=== PATIENT | female | born 1970 | race Caucasian/White ===

== ENCOUNTER 2019-09-25 05:50 | Emergency (ER) | payer OTHER, SELFPAY ==
--- NOTE | ~2019-09-25 | US_ITS ---
EXAMINATION: US venous doppler [facility] DATE: 09/25/2019 07:21 INDICATION: Left lower limb swelling and redness TECHNIQUE: Wagner scale images without and with compression and Doppler images of the left lower extrem ity veins were obtained. COMPARISON: 10/15/2014. FINDINGS: The left common femoral vein, profunda femoral vein, femoral vein, popliteal vein, posterio r tibial veins, and greater saphenous vein are patent. The peroneal vein is not evaluated due to hodan ent body habitus. IMPRESSION: 1. Patent left lower extremity veins. No evidence of deep venous thrombosis. Peroneal vein not evalua jorge due to patient body habitus. Reviewed, dictated and finalized at location [facility]. ET DANCER IMPRESSION: 1. Patent left lower extremity veins. No evidence of deep venous thrombosis. Pe roneal vein not evaluated due to patient body habitus.
[2019-09-25 05:55] VITALS: BP 168/106; PULSE 96; RESP 20; TEMP 36.4; O2SAT 99
[2019-09-25 06:29] LABS: Glucose Point of Care 128 (65-105)
[2019-09-25 06:37] LABS: Add Urine Microscopic? YES; Appearance Urine Clear (Clear); Bilirubin Urine Negative (Negative); Blood Urine 1+ (Negative); Color Urine Yellow (Yellow); Glucose Urine UA Negative (Negative); Ketones Urine Negative (Negative); Leukocyte Esterase Ur Negative LEU/UL (Negative); Mucus Urine Rare /lpf; Nitrate Urine Negative (Negative); Protein Urine Negative (Negative); RBC Urine 0-2 /hpf (0-2); Specific Grav Ur 1.017 (1.001-1.035); Squamous Epithelial Cell Urine Moderate /hpf (Few); Urobilinogen Urine Negative mg/dL (<2.0); WBC Urine 0-3 /hpf
[2019-09-25 06:40] LABS: Basophils Percent Auto 0.4 % (0.2-1.2); Eosinophils Absolute Auto 0.2 K/mm3 (0-0.3); Eosinophils Percent Auto 3.1 % (0-4.4); Hematocrit 40.7 % (37.0-47.0); Hemoglobin 13.1 g/dL (12.0-15.0); Immature Granulocyte Absolute 0.04 K/mm3 (0.00-0.031); Immature Granulocyte Percent A 0.5 % (0-0.5); Lymphocytes Absolute Auto 1.68 K/mm3 (0.9-3.2); Lymphocytes Percent Auto 21.8 % (18.3-44.2); Mean Corpuscular HGB Conc 32.2 g/dl (32-36); Mean Corpuscular Hemoglobin 28.7 pg (26-34); Mean Corpuscular Volume 89.1 fl (80-100); Mean Platelet Volume 9.5 fl (7.4-10.4); Monocytes Absolute Auto 0.5 K/mm3 (0.1-0.6); Monocytes Percent Auto 6.2 % (2.6-8.5); Neutrophils Absolute Auto 5.2 K/mm3 (1.3-6.7); Platelet Count Result 245 k/mm3 (150-375); Red Blood Count 4.57 M/mm3 (4.2-5.4); Red Cell Distribution Width 13.4 % (11.5-14.5); White Blood Count 7.7 K/mm3 (4.5-10.0)
--- NOTE | 2019-09-25 06:46 | ED.LOWEXIN ---
HPI - Extremity Injury (Lower) General Chief Complaint: Extremity Injury, Lower Stated Complaint: lle rash Time Seen by Provider: 09/25/19 05:59 Source: patient Mode of arrival: ambulatory Limitations: no limitations History of Present Illness HPI Narrative: 48 yo morbidly obese female who presents for evaluation of rash to left lower leg. Patient states she has noticed burning rash to left lower leg for 3 days. She states she looked online and she was concerned about cellulitis. She reports she has chronically swollen bilateral feet and legs, but he swelling seems to be worse to left leg . She takes 2 tabs of HCTZ. She denies calf pain, fever, nausea, vomiting , chest pain or sob. She is also concerned that she has UTI. She reports increased urinary frequency and sweet smelling urine. She denies dysuria or abdominal pain. She denies history of Diabetes. complaint: other (rash to left leg) Related Data Allergies Allergy/AdvReac Type Severity Reaction Status Date / Time lisinopril Allergy Intermediate leg Verified 11/28/18 10:12 swelling morphine Allergy Unknown Unknown Verified 09/25/19 06:00 Review of Systems Review of Systems: All systems reviewed & are unremarkable except as noted in HPI and below Constitutional: Constitutional: Denies chills, Denies fever(s) and Denies weakness Cardiovascular: Cardiovascular: Denies chest pain and Denies rapid heart rate Respiratory: Respiratory: Denies cough and Denies dyspnea Gastrointestinal: Gastrointestinal: Denies abdominal pain Genitourinary: Genitourinary: Denies hematuria, Reports nocturia and Denies dysuria PMFSH Past Medical History Medical History (Updated 09/25/19 @ 08:39 by Claudette Mendoza MD) Hypertension Surgical History Surgical History (Updated 09/25/19 @ 06:54 by Claudette Mendoza MD) Hx of appendectomy Exam Narrative: Exam Narrative: GENERAL: Well-appearing, well-nourished, and in no acute distress. HEAD: Normocephalic, atraumatic EYES: PERRLA and EOMI, conjunctiva clear without discharge THROAT:Mucous membranes moist, NECK: Supple, without lymphadenopathy or mass RESPIRATORY: No respiratory distress, Airway patent, Respirations non-labored, Clear to auscultation without rales, rhonchi or wheeze HEART: Regular rate and rhythm. No murmur heard. Normal peripheral pulses. ABDOMEN: Soft, nontender, nondistended, normal active bowel sounds. No masses. No rebound or guarding, No organomegaly. EXTREMITIES: normal strength with full range of motion. SKIN: Warm, dry, normal color NEURO: Alert and oriented x3. CN 2-12 grossly intact. No focal deficits. PSYCH: Normal mood and affect. Skin: General skin exam: excoriation (left lower leg) Other: bilateral lower leg with stasis dermatitis, no increased warmth or redness Extrem: General: edema bilateral Course Course Emergency Course: Patient presented with concern of cellulitis to her left leg. I Discussed with this pain she has stasis dermatitis. She does not have cellulitis at this time. labs are normal and she has not increased warmth or pain. I discussed she will need to wrap and wear compressions and discussed diuretics with her PCP. Vital Signs Vital signs: Vital Signs Temperature 97.6 F 09/25/19 05:55 Pulse Rate 96 09/25/19 05:55 Respiratory Rate 20 09/25/19 05:55 Blood Pressure 168/106 H 09/25/19 05:55 Pulse Oximetry 99 09/25/19 05:55 Temperature 97.6 F 09/25/19 05:55 Pulse Rate 72 09/25/19 09:01 Respiratory Rate 18 09/25/19 09:01 Blood Pressure 131/94 H 09/25/19 09:01 Pulse Oximetry 98 09/25/19 09:01 MDM - Extremity Injury (Lower) Lab Data Attestation: I reviewed the patient's lab results. Result diagrams: 09/25/19 06:25 09/25/19 06:25 Labs: Lab Results 09/25/19 09/25/19 09/25/19 Range/Units 06:24 06:25 06:25 WBC 7.7 (4.5-10.0) K/mm3 RBC 4.57 (4.2-5.4) M/mm3 Hgb 1
[2019-09-25 06:55] LABS: Alanine Aminotransferase 24 U/L (4-35); Alkaline Phosphatase 108 U/L (38-126); Aspartate Amino Transferase 27 U/L (14-36); Bilirubin,Total 0.5 mg/dL (0.2-1.3); Blood Urea Nitrogen 16 mg/dL (7-17); Calcium 9.3 mg/dL (8.4-10.2); Carbon Dioxide 28 mmol/L (22-30); Chloride 93 mmol/L (98-107); Estimated CRCL calculation 107 ml/min; Estimated Glomerular Filt Rate > 60; Glucose 131 mg/dL (65-105); Potassium 3.8 mmol/L (3.4-5.0); Sodium 135 mmol/L (137-145)
[2019-09-25 09:01] VITALS: BP 131/94; PULSE 72; RESP 18; O2SAT 98
== END 2019-09-25 09:03 | disposition home or self-care (01) ==
PROVIDERS: Emergency Provider General Practice
DX: R60.0 Localized edema (principal); I87.2 Venous insufficiency (chronic) (peripheral); E66.01 Morbid (severe) obesity due to excess calories; Z68.41 Body mass index [BMI] 40.0-44.9, adult; I10 Essential (primary) hypertension
CPT/HCPCS: 36415; 80053; 81001; 82948; 85025; 93971; 99284

== ENCOUNTER 2020-04-17 10:17 | Outpatient (CLI) | payer OTHER, SELFPAY ==
[2020-04-17 11:01] LABS: NT Pro B Type Natriuretic Pept 66 PG/ML (5-100)
== END 2020-04-17 10:18 | disposition home or self-care (01) ==
LOC: ANHLAB 10:19
PROVIDERS: PCP Nurse Practitioner Family; Visit Provider Internal Medicine Cardiovascular Disease
DX: R06.00 Dyspnea, unspecified (principal); R60.0 Localized edema
CPT/HCPCS: 36415; 83880

== ENCOUNTER 2020-04-27 09:22 | Outpatient (CLI) | payer OTHER, SELFPAY ==
--- NOTE | ~2020-04-27 | US_ITS ---
EXAMINATION: US venous doppler [facility] EXAM DATE: 04/27/2020 10:02 INDICATION: Bilateral leg edema. TECHNIQUE: Multiple grayscale, color flow and Doppler images of the lower extremity deep venous syste ms bilaterally were obtained and reviewed. Comparison is made to prior examination from 09/25/2019. FINDINGS: Right side: The right common femoral, femoral and profunda veins demonstrate normal color flow, respi ratory variation, augmentation and compressibility. Compressibility, color flow confirmed within the right popliteal, posterior tibial, peroneal, and greater saphenous veins. Left side: The left common femoral, femoral and profunda veins demonstrate normal color flow, respira tory variation, augmentation and compressibility. Compressibility, color flow confirmed within the l eft popliteal, posterior tibial, peroneal, and greater saphenous veins. IMPRESSION: 1. No lower extremity deep venous thrombosis bilaterally. Reviewed, dictated and finalized at location [facility].
== END 2020-04-27 09:23 | disposition home or self-care (01) ==
PROVIDERS: PCP Nurse Practitioner Family; Visit Provider Internal Medicine Cardiovascular Disease
DX: R60.0 Localized edema (principal)
CPT/HCPCS: 93970

== ENCOUNTER 2020-04-29 12:28 | Emergency (ER) | payer OTHER, SELFPAY ==
[2020-04-29 12:38] VITALS: BP 120/74; PULSE 68; RESP 16; TEMP 37.1; O2SAT 97
--- NOTE | 2020-04-29 13:00 | ED.GENADULT ---
HPI - General Adult General Chief complaint: Skin/Abscess/Foreign Body Stated complaint: possible spider bite Time Seen by Provider: 04/29/20 13:00 Source: patient and RN notes reviewed Mode of arrival: ambulatory Limitations: no limitations History of Present Illness HPI narrative: 49-year-old female presents with complaints of lesions, tenderness, and drainage to LT lower leg for 1 day. Kassy says she has been having swelling to BLE for 5-6 months without cardiac history. No redness and warmth. No treatment. Denies radiation of tenderness, redness, or swelling. No exacerbating factors. Denies calf pain. Denies fever or chills. Denies nausea, vomiting, and abdominal pain. The patient reports she have not been diagnosed with COVID-19. The patient reports she is not waiting for the results of a COVID-19 lab test. The patient reports she do not have fever, chills, weakness, or fatigue. The patient reports she do not have a new or worsening cough or shortness of breath. Denies chest pain. The patient reports she do not have any rhinorrhea, congestion, sore throat, loss of taste, or diarrhea. Tolerating po intake well. Denies recent traveling. Denies concerns for COVID-19 or exposures been home with limited outdoor exposure except for essential household needs, work, and return home. At this time, patient is not suspected of having COVID-19. Some parts of this dictation were generated by voice recognition software and may contain typographical and/or grammatical inaccuracies. Related Data Home Medications Medication Instructions Recorded Confirmed carvedilol 04/29/20 ergocalciferol (vitamin D2) 04/29/20 furosemide 04/29/20 levothyroxine 04/29/20 levothyroxine 04/29/20 potassium chloride 04/29/20 Allergies Allergy/AdvReac Type Severity Reaction Status Date / Time lisinopril Allergy Intermediate leg Verified 11/28/18 10:12 swelling morphine Allergy Unknown Unknown Verified 09/25/19 06:00 Review of Systems Review of Systems: Narrative: CONSTITUTIONAL: Denies fever, chills, sweats. EYES: Denies visual changes, redness, discharge. ENT: Denies rhinorrhea, congestion, sore throat, otalgia. CARDIOVASCULAR: Denies chest pain, palpitations, edema. RESPIRATORY: Denies dyspnea, wheezing, cough. GASTROINTESTINAL: Denies abdominal pain, nausea, vomiting, diarrhea. GENITOURINARY: Denies dysuria, hematuria, abnormal discharge. SKIN: Complains of lesions, tenderness, and drainage to LT lower leg. MUSCULOSKELETAL: Denies acute back pain, joint pain, or myalgia. NEUROLOGIC: Denies numbness or focal weakness. PSYCHIATRIC: Denies anxiety or depression. All systems reviewed & are unremarkable except as noted in HPI and below. 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 Swelling of both lower extremities Surgical History Surgical History (Updated 04/29/20 @ 13:08 by ULISES Juan) History of ankle surgery Right, x5 History of dental surgery History of ear surgery Left, x4 Hx of appendectomy Family History Family History (Updated 04/29/20 @ 13:08 by ULISES Juan) Father Alive and well Mother Hypertension Social History Social History (Updated 04/29/20 @ 13:09 by ULISES Juan) Smoking status: Never smoker Tobacco type: cigarettes Second hand tobacco smoke exposure: Yes Alcohol intake: never Substance use: never Living arrangements: with family Occupation/Education: occupation Gender identity (if verbalized by the patient): Female Comments At time of signature, agree with nurse past medical, surgical, social, and family history. There is relevant patient's past medical history pertinent to the presenting complaint, no relevant family history pertinent to the presenting complaint. Exam Narrative: Exam Narrative:
== END 2020-04-29 13:20 | disposition home or self-care (01) ==
PROVIDERS: Emergency Provider Nurse Practitioner Family; PCP Nurse Practitioner Family
DX: L03.116 Cellulitis of left lower limb (principal); I10 Essential (primary) hypertension; E03.1 Congenital hypothyroidism without goiter
CPT/HCPCS: 99213; G0463

== ENCOUNTER 2020-06-20 10:17 | Emergency (ER) | payer OTHER, SELFPAY ==
[2020-06-20 10:38] VITALS: BP 146/97; PULSE 80; RESP 20; TEMP 36.6; O2SAT 96
[2020-06-20 10:58] LABS: Basophils Percent Auto 0.4 % (0.2-1.2); Eosinophils Absolute Auto 0.3 K/mm3 (0-0.3); Eosinophils Percent Auto 3.7 % (0-4.4); Hematocrit 42.5 % (37.0-47.0); Immature Granulocyte Absolute 0.03 K/mm3 (0.00-0.031); Immature Granulocyte Percent A 0.4 % (0-0.5); Lymphocytes Absolute Auto 1.41 K/mm3 (0.9-3.2); Lymphocytes Percent Auto 16.6 % (18.3-44.2); Mean Corpuscular HGB Conc 32.9 g/dl (32-36); Mean Corpuscular Hemoglobin 29.5 pg (26-34); Mean Corpuscular Volume 89.5 fl (80-100); Mean Platelet Volume 8.7 fl (7.4-10.4); Monocytes Absolute Auto 0.3 K/mm3 (0.1-0.6); Monocytes Percent Auto 3.9 % (2.6-8.5); Neutrophils Absolute Auto 6.4 K/mm3 (1.3-6.7); Platelet Count Result 298 k/mm3 (150-375); Red Blood Count 4.75 M/mm3 (4.2-5.4); White Blood Count 8.5 K/mm3 (4.5-10.0)
[2020-06-20 11:12] LABS: Alanine Aminotransferase 23 U/L (4-35); Alkaline Phosphatase 100 U/L (38-126); Anion Gap 9 mmol/L (8-16); Aspartate Amino Transferase 25 U/L (14-36); Bilirubin,Total 0.5 mg/dL (0.2-1.3); Blood Urea Nitrogen 10 mg/dL (7-17); Calcium 8.7 mg/dL (8.4-10.2); Carbon Dioxide 28 mmol/L (22-30); Chloride 101 mmol/L (98-107); Estimated CRCL calculation 106 ml/min; Estimated Glomerular Filt Rate > 60; Glucose 128 mg/dL (65-105); Lipase 56 U/L (23-300); Potassium 3.6 mmol/L (3.4-5.0); Sodium 138 mmol/L (137-145)
[2020-06-20 11:39] LABS: Add Urine Microscopic? YES; Appearance Urine Clear (Clear); Bilirubin Urine Negative (Negative); Blood Urine Negative (Negative); Color Urine Yellow (Yellow); Glucose Urine UA Negative (Negative); Ketones Urine Negative (Negative); Leukocyte Esterase Ur Negative LEU/UL (Negative); Mucus Urine Few /lpf; Nitrate Urine Negative (Negative); Protein Urine 2+ mg/dL (Negative); RBC Urine 0-2 /hpf (0-2); Specific Grav Ur 1.023 (1.001-1.035); Squamous Epithelial Cell Urine Many /hpf (Few); Urobilinogen Urine Negative mg/dL (<2.0); WBC Urine 0-3 /hpf
[2020-06-20 13:31] VITALS: BP 142/96; PULSE 67; RESP 14; O2SAT 98
--- NOTE | 2020-06-20 13:34 | ED.GENADULT ---
HPI - General Adult General Chief complaint: Nausea/Vomiting/Diarrhea Stated complaint: vomiting/diarrhea Time Seen by Provider: 06/20/20 11:24 Source: patient Mode of arrival: ambulatory Limitations: no limitations History of Present Illness HPI narrative: Patient presents with chief complaint of vomiting twice, once last night and this morning. Patient states that Friday night while working she had a few episodes of nausea and vomiting so she was sent home. Patient states that she felt greatly improved so last night she decided to have [employer] cheeseburger and fries which resulted in vomiting. Patient denies any abdominal pain, fever, chills, diarrhea or present vomiting. 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 Patient denies any symptoms at this time but intermittent mild nausea.. Related Data Home Medications Medication Instructions Recorded Confirmed carvedilol 04/29/20 ergocalciferol (vitamin D2) 04/29/20 furosemide 04/29/20 levothyroxine 04/29/20 levothyroxine 04/29/20 potassium chloride 04/29/20 Allergies Allergy/AdvReac Type Severity Reaction Status Date / Time lisinopril Allergy Intermediate leg Verified 06/20/20 11:24 swelling morphine Allergy Unknown Unknown Verified 06/20/20 11:24 Review of Systems Review of Systems: Narrative: CONSTITUTIONAL: Denies fever, chills, or sweats. EYES: Denies visual changes, redness, or discharge. ENT: Denies rhinorrhea, congestion, sore throat, or otalgia. CARDIOVASCULAR: Denies chest pain, palpitations, or edema. RESPIRATORY: Denies cough or dyspnea. GASTROINTESTINAL: Reports intermittent nausea and vomiting denies abdominal pain or diarrhea. GENITOURINARY: Denies dysuria or hematuria. SKIN: Denies rash or itching. MUSCULOSKELETAL: Denies back pain, joint pain, or myalgia. NEUROLOGIC: Denies headache, numbness, dizziness, or weakness. PSYCHIATRIC: Denies anxiety or depression. 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 Swelling of both lower extremities Surgical History Surgical History (Updated 04/29/20 @ 13:08 by ULISES Juan) History of ankle surgery Right, x5 History of dental surgery History of ear surgery Left, x4 Hx of appendectomy Family History Family History (Updated 04/29/20 @ 13:08 by ULISES Juan) Father Alive and well Mother Hypertension Social History Social History (Updated 04/29/20 @ 13:09 by ULISES Juan) Smoking status: Never smoker Tobacco type: cigarettes Second hand tobacco smoke exposure: Yes Alcohol intake: never Substance use: never Gender identity (if verbalized by the patient): Female Exam Narrative: Exam Narrative: GENERAL: Well-appearing, well-nourished, and in no acute distress. HEAD: Normocephalic, atraumatic. EYES: PERRLA and EOMI. NECK: Supple. No adenopathy or masses. CHEST: Clear to auscultation. No respiratory distress. No wheezes rales or rhonchi HEART: Regular rate and rhythm. No murmur heard. Normal peripheral pulses. ABDOMEN: Soft, nontender, nondistended, normal active bowel sounds. EXTREMITIES: Normal range of motion. No edema. SKIN: Warm, dry, no rash. NEURO: No focal deficits. Alert and oriented x3. PSYCH: Normal mood and affect. Course Vital Signs Vital signs: Vital Signs Temperature 97.8 F 06/20/20 10:38 Pulse Rate 80 06/20/20 10:38 Respiratory Rate 20 06/20/20 10:38 Blood Pressure 146/97 H 06/20/20 10:38 Pulse Oximetry 96 06/20/20 10:38 Temperature 97.8 F 06/20/20 10:38 Pulse Rate 67 06/20/20 13:31 Respiratory Rate 14 06/20/20 13:31 Blood Pressure 142/96 H 06/20/20 13:31 Pulse Oximetry 98 06/20/20 13:31 Medical Decision Making MDM Narrative Medical decision making narrative: Patient's lab work is within normal limits. Patient denies an
[2020-06-20 13:48] VITALS: BP 142/96; PULSE 69; RESP 15; O2SAT 99
== END 2020-06-20 13:49 | disposition home or self-care (01) ==
PROVIDERS: Emergency Provider Emergency Medicine; PCP Nurse Practitioner Family
DX: K52.9 Noninfective gastroenteritis and colitis, unspecified (principal); I10 Essential (primary) hypertension; E03.9 Hypothyroidism, unspecified
CPT/HCPCS: 36415; 80053; 81001; 83690; 85025; 99283

== ENCOUNTER 2020-07-08 08:51 | Emergency (ER) | payer OTHER, SELFPAY ==
[2020-07-08 09:07] VITALS: BP 185/113; PULSE 98; RESP 18; TEMP 36.1; O2SAT 100
[2020-07-08 09:52] VITALS: BP 157/89; PULSE 73
[2020-07-08 09:53] VITALS: BP 155/98; BP 167/109; PULSE 80; PULSE 88
[2020-07-08 10:16] LABS: Basophils Percent Auto 0.5 % (0.2-1.2); Eosinophils Absolute Auto 0.3 K/mm3 (0-0.3); Eosinophils Percent Auto 4.4 % (0-4.4); Hematocrit 41.6 % (37.0-47.0); Hemoglobin 13.8 g/dL (12.0-15.0); Immature Granulocyte Absolute 0.02 K/mm3 (0.00-0.031); Immature Granulocyte Percent A 0.3 % (0-0.5); Lymphocytes Absolute Auto 1.46 K/mm3 (0.9-3.2); Mean Corpuscular HGB Conc 33.2 g/dl (32-36); Mean Corpuscular Hemoglobin 29.4 pg (26-34); Mean Corpuscular Volume 88.7 fl (80-100); Mean Platelet Volume 9.3 fl (7.4-10.4); Monocytes Absolute Auto 0.3 K/mm3 (0.1-0.6); Monocytes Percent Auto 5.3 % (2.6-8.5); Neutrophils Absolute Auto 4.2 K/mm3 (1.3-6.7); Neutrophils Percent Auto 66.5 % (45.5-73.1); Platelet Count Result 241 k/mm3 (150-375); Red Blood Count 4.69 M/mm3 (4.2-5.4); Red Cell Distribution Width 12.9 % (11.5-14.5); White Blood Count 6.4 K/mm3 (4.5-10.0)
[2020-07-08 10:22] LABS: Add Urine Microscopic? YES; Appearance Urine Clear (Clear); Bacteria Urine Trace /hpf; Bilirubin Urine Negative (Negative); Blood Urine Negative (Negative); Color Urine Yellow (Yellow); Glucose Urine UA Negative (Negative); Ketones Urine Negative (Negative); Leukocyte Esterase Ur Negative LEU/UL (Negative); Mucus Urine Rare /lpf; Nitrate Urine Negative (Negative); Protein Urine 1+ mg/dL (Negative); RBC Urine 0-2 /hpf (0-2); Specific Grav Ur 1.018 (1.001-1.035); Squamous Epithelial Cell Urine Many /hpf (Few); Urobilinogen Urine Negative mg/dL (<2.0); WBC Urine 0-3 /hpf
[2020-07-08 10:29] LABS: Alanine Aminotransferase 19 U/L (4-35); Albumin Level 3.8 g/dL (3.5-5.1); Alkaline Phosphatase 97 U/L (38-126); Anion Gap 5 mmol/L (8-16); Aspartate Amino Transferase 20 U/L (14-36); Bilirubin,Total 0.4 mg/dL (0.2-1.3); Blood Urea Nitrogen 12 mg/dL (7-17); Calcium 8.8 mg/dL (8.4-10.2); Carbon Dioxide 29 mmol/L (22-30); Chloride 102 mmol/L (98-107); Estimated CRCL calculation 103 ml/min; Estimated Glomerular Filt Rate > 60; Glucose 106 mg/dL (65-105); Lipase 74 U/L (23-300); Potassium 4.3 mmol/L (3.4-5.0); Sodium 136 mmol/L (137-145)
--- NOTE | 2020-07-08 10:40 | ED.NAVMDI ---
HPI - Nausea/Vomiting/Diarrhea General Chief complaint: Nausea/Vomiting/Diarrhea Stated complaint: vomiting, needs work note Time Seen by Provider: 07/08/20 09:44 Source: patient Mode of arrival: ambulatory Limitations: no limitations History of Present Illness HPI Narrative: This patient is a 49 year old female who presents for evaluation of diarrhea. She states she had an episode of diarrhea this morning. She denies any blood in her stool. She states she had to leave work so she needs a work note. She had lower abdominal pain before her episode of diarrhea, but she reports her pain has resolved now . She was evaluated over 2 weeks ago for vomiting and diarrhea. She continues to have nausea but she denies any vomiting since her last ER visit. She also reports her diarrhea resolved until today. She denies fever, chills, cough, or sob. She spoke with her PCP yesterday and it was recommended that she eat a BRAT diet. She states they will refer her to GI next week. Related Data Home Medications Medication Instructions Recorded Confirmed carvedilol 04/29/20 levothyroxine 04/29/20 levothyroxine 04/29/20 Allergies Allergy/AdvReac Type Severity Reaction Status Date / Time lisinopril Allergy Intermediate leg Verified 07/08/20 09:10 swelling morphine Allergy Unknown Unknown Verified 07/08/20 09:10 Review of Systems Review of Systems: All systems reviewed & are unremarkable except as noted in HPI and below Constitutional: Constitutional: Denies chills and Denies fever(s) Cardiovascular: Cardiovascular: Denies chest pain Respiratory: Respiratory: Denies cough and Denies dyspnea Gastrointestinal: Gastrointestinal: Reports abdominal pain, Reports diarrhea, Reports nausea and Denies vomiting Genitourinary: Genitourinary: Denies hematuria, Denies dysuria and Denies flank pain Neurologic: Denies dizziness and Denies syncope [facility] Past Medical History Medical History (Updated 07/08/20 @ 10:49 by Claudette Mendoza MD) Hypertension 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 Swelling of both lower extremities Surgical History Surgical History (Updated 04/29/20 @ 13:08 by ULISES Juan) History of ankle surgery Right, x5 History of dental surgery History of ear surgery Left, x4 Hx of appendectomy Family History Family History (Updated 04/29/20 @ 13:08 by ULISES Juan) Father Alive and well Mother Hypertension Social History Social History (Updated 04/29/20 @ 13:09 by ULISES Juan) Smoking status: Never smoker Tobacco type: cigarettes Second hand tobacco smoke exposure: Yes Alcohol intake: never Substance use: never Gender identity (if verbalized by the patient): Female Exam Const: General: no acute distress and alert Orientation/consciousness: patient oriented x3 HENMT: Head: normocephalic and atraumatic Face and sinus: face symmetric Mouth: Yes Normal oral and palatal mucosa present, Yes lip normal, Yes oropharynx normal and Yes moist mucous membranes Throat: posterior oropharynx normal, tonsils normal and uvula midline Eyes: EOM: EOMs intact bilaterally Chest: Chest palpation & inspection: normal inspection of the chest Resp: Effort & Inspection: normal respiratory effort and no retractions Auscultation: clear to auscultation bilaterally Cardio: Rate: regular rate Rhythm: regular rhythm Heart sounds: no murmurs GI: GI Palp: Yes Soft to palpation, No Tenderness to palpation present (GI), No Guarding due to palpation present (GI) and No Rigid due to palpation Auscultation: normal bowel sounds Skin: General skin exam: normal color Rashes: no rashes Neuro: General: patient oriented x3 and moves all extremities Psych: Mental Status: mental status grossly normal Affect: normal affect Course Reevaluation(s) Reevaluation #1: Patient has no complaints. Her labs are unremarkable. She denies any symptoms o
[2020-07-08 11:06] VITALS: BP 170/107; PULSE 81; RESP 18; O2SAT 99
== END 2020-07-08 11:07 | disposition home or self-care (01) ==
PROVIDERS: Emergency Provider General Practice; PCP Nurse Practitioner Family
DX: R19.7 Diarrhea, unspecified (principal); I10 Essential (primary) hypertension; E03.1 Congenital hypothyroidism without goiter
CPT/HCPCS: 36415; 80053; 81001; 81025; 83690; 85025; 99283

== ENCOUNTER 2020-09-28 14:37 | Outpatient (RCR) | payer OTHER, SELFPAY ==
[2020-09-28 15:06] VITALS: BMI 45.7
== END 2020-12-18 15:15 | disposition home or self-care (01) ==
LOC: ANHDMC 14:37
PROVIDERS: PCP Nurse Practitioner Family
DX: E66.01 Morbid (severe) obesity due to excess calories (principal); R73.03 Prediabetes; Z71.3 Dietary counseling and surveillance
CPT/HCPCS: 97802

== ENCOUNTER 2020-11-14 14:05 | Emergency (ER) | payer OTHER, SELFPAY ==
[2020-11-14] VITALS (13 sets, daily range): BP systolic 112–184; BP diastolic 78–116; PULSE 75–81; RESP 18–19; TEMP 36.7; O2SAT 90–100
--- NOTE | ~2020-11-14 | CT_ITS ---
EXAMINATION: CT abdomen pelvis w con DATE: 11/14/2020 17:56 INDICATION: Upper abdominal pain and nausea TECHNIQUE: Computed tomography (CT) of the abdomen and pelvis was performed with 100 cc Omnipaque 350 intravenous contrast. Automated exposure control and iterative reconstruction technique were employe d. Exam dose: 1402.75 mGy-cm total exam DLP. COMPARISON: 04/29/2018 CT abdomen pelvis FINDINGS: No infiltrate or consolidation is noted in the included lower lung zones. Heart size is within normal range. Coronary artery calcification. No pericardial or pleural effusion. Mild diffuse hepatic steatosis. No hepatic, splenic, pancreatic or adrenal space-occupying mass lesion is evident. There is extreme a trophy or possibly congenital extremely small left kidney. No right renal mass lesion or right ureter al calculus or hydroureteronephrosis. The urinary bladder, uterus and adnexal areas are unremarkable. No bowel obstruction, bowel wall thickening, pneumatosis or intraperitoneal free air. There is a medi ally directed medially midline cecum, consistent with retained cecal mesentery. There is some fluid l evels of the colon, abnormal unless there have been recent enemas. Otherwise this may indicate diarrh ea. Normal caliber of the abdominal aorta. The left renal artery is diffusely severely narrowed/atretic. No abdominal aortic aneurysm. Distal abdominal aortic and bilateral iliac shotty nonenlarged lymph nodes. Up to 12.5 x 15.7 mm proximal right external iliac lymph node. Otherwise no intraperitoneal or retrop eritoneal or pelvic mass lesion or lymphadenopathy is noted. Small fat-containing umbilical hernia. Severe left hip osteoarthritic arthritis prominent degenerative cyst of the left acetabulum and left femoral head, severe joint space narrowing. 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 Reviewed, dictated and finalized at location [facility]. 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
[2020-11-14 14:37] LABS: Basophils Absolute Auto 0.1 K/mm3 (0.0-0.1); Basophils Percent Auto 0.6 % (0.2-1.2); Eosinophils Absolute Auto 0.9 K/mm3 (0-0.3); Eosinophils Percent Auto 11.3 % (0-4.4); Hematocrit 41.7 % (37.0-47.0); Hemoglobin 13.9 g/dL (12.0-15.0); Immature Granulocyte Absolute 0.02 K/mm3 (0.00-0.031); Immature Granulocyte Percent A 0.2 % (0-0.5); Lymphocytes Absolute Auto 1.66 K/mm3 (0.9-3.2); Lymphocytes Percent Auto 20.2 % (18.3-44.2); Mean Corpuscular HGB Conc 33.3 g/dl (32-36); Mean Corpuscular Volume 90.1 fl (80-100); Mean Platelet Volume 9.2 fl (7.4-10.4); Monocytes Absolute Auto 0.3 K/mm3 (0.1-0.6); Monocytes Percent Auto 3.9 % (2.6-8.5); Neutrophils Absolute Auto 5.2 K/mm3 (1.3-6.7); Neutrophils Percent Auto 63.8 % (45.5-73.1); Platelet Count Result 269 k/mm3 (150-375); Red Blood Count 4.63 M/mm3 (4.2-5.4); Red Cell Distribution Width 12.7 % (11.5-14.5); White Blood Count 8.2 K/mm3 (4.5-10.0)
[2020-11-14 14:47] LABS: Alanine Aminotransferase 30 U/L (4-35); Albumin Level 4.1 g/dL (3.5-5.1); Alkaline Phosphatase 117 U/L (38-126); Anion Gap 5 mmol/L (8-16); Aspartate Amino Transferase 27 U/L (14-36); Bilirubin,Total 0.5 mg/dL (0.2-1.3); Blood Urea Nitrogen 14 mg/dL (7-17); Calcium 9.2 mg/dL (8.4-10.2); Carbon Dioxide 30 mmol/L (22-30); Chloride 102 mmol/L (98-107); Estimated CRCL calculation 93 ml/min; Estimated Glomerular Filt Rate > 60; Glucose 97 mg/dL (65-105); Lipase 70 U/L (23-300); Potassium 4.4 mmol/L (3.4-5.0); Sodium 137 mmol/L (137-145)
[2020-11-14 14:54] LABS: Add Urine Microscopic? NO; Appearance Urine Clear (Clear); Bilirubin Urine Negative (Negative); Blood Urine Negative (Negative); Color Urine Straw (Yellow); Glucose Urine UA Negative (Negative); Ketones Urine Negative (Negative); Leukocyte Esterase Ur Negative LEU/UL (Negative); Nitrate Urine Negative (Negative); Protein Urine Negative (Negative); Specific Grav Ur 1.009 (1.001-1.035); Urobilinogen Urine Negative mg/dL (<2.0)
[2020-11-14] MEDS: FAMOTIDINE 20 MG/2 ML VIAL IV PUSH (17:24)
[2020-11-14] MEDS: SODIUM CHLORIDE 0.9% IV 500 ML 999 ML IV CONT (17:25)
--- NOTE | 2020-11-14 17:25 | ED.ABDPAIN ---
HPI - Abdominal Pain General Chief Complaint: Abdominal Pain Stated Complaint: and pain. n/v/d Time Seen by Provider: 11/14/20 16:47 Source: patient Mode of arrival: ambulatory Limitations: no limitations History of Present Illness HPI narrative: This is a 50 year old female that presents to the ER for upper abdominal pain and nausea since this morning. Associated with diarrhea. Denies fever, hematochezia or recent antibiotic use. Related Data Home Medications Medication Instructions Recorded Confirmed carvedilol BID 04/29/20 levothyroxine 350 DAILY 04/29/20 levothyroxine 350 DAILY 04/29/20 dulaglutide [Trulicity] mg SUBCUT 11/14/20 pantoprazole PO DAILY 11/14/20 Allergies Allergy/AdvReac Type Severity Reaction Status Date / Time lisinopril Allergy Intermediate leg Verified 07/08/20 09:10 swelling morphine AdvReac Mild Nausea and Verified 11/14/20 16:54 Vomiting Review of Systems Review of Systems: Narrative: CONSTITUTIONAL: Denies fever GASTROINTESTINAL: Reports abdominal pain, nausea, and diarrhea. 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 Swelling of both lower extremities Surgical History Surgical History (Updated 04/29/20 @ 13:08 by ULISES Juan) History of ankle surgery Right, x5 History of dental surgery History of ear surgery Left, x4 Hx of appendectomy Family History Family History (Updated 04/29/20 @ 13:08 by ULISES Juan) Father Alive and well Mother Hypertension Social History Social History (Updated 04/29/20 @ 13:09 by ULISES Juan) Smoking status: Never smoker Tobacco type: cigarettes Second hand tobacco smoke exposure: Yes Alcohol intake: never Substance use: never Gender identity (if verbalized by the patient): Female Spiritual care concerns: No Exam Narrative: Exam Narrative: GENERAL: Well-appearing, obese, and in no acute distress. HEAD: Normocephalic, atraumatic. EYES: EOMI. CHEST: Clear to auscultation. No respiratory distress. No wheezes rales or rhonchi HEART: Regular rate and rhythm. No murmur heard. Normal peripheral pulses. ABDOMEN: Soft, nondistended, normal active bowel sounds. Tender to palpation in the upper abdomen, without guarding EXTREMITIES: Normal range of motion. No edema. SKIN: Warm, dry, no rash. NEURO: No focal deficits. Alert and oriented x3. PSYCH: Normal mood and affect Course Vital Signs Vital signs: Vital Signs Temperature 98.0 F 11/14/20 14:19 Pulse Rate 81 11/14/20 14:19 Respiratory Rate 18 11/14/20 14:19 Blood Pressure 177/113 H 11/14/20 14:19 Pulse Oximetry 99 11/14/20 14:19 Temperature 98.0 F 11/14/20 14:19 Pulse Rate 75 11/14/20 20:01 Respiratory Rate 19 11/14/20 20:01 Blood Pressure 135/98 H 11/14/20 20:16 Pulse Oximetry 99 11/14/20 20:16 MDM - Abdominal Pain MDM Narrative Medical decision making narrative: Patient presents to the emergency department for upper abdominal pain, nausea, vomiting and diarrhea. She is afebrile and nontoxic-appearing. CBC is without leukocytosis. Metabolic panel and lipase without concerning findings. UA is without evidence of infection. Bedside test is negative. CT scan of the abdomen and pelvis without acute findings. Patient reports improvement with antiemetics and antacids. She is stable and felt appropriate for further outpatient evaluation. She was given warnings to return to the ER Lab Data Attestation: I reviewed the patient's lab results. Result diagrams: 11/14/20 14:26 11/14/20 14:26 Labs: Lab Results 11/14/20 11/14/20 11/14/20 Range/Units 14:26 14:26 14:39 WBC 8.2 (4.5-10.0) K/mm3 RBC 4.63 (4.2-5.4
[2020-11-14] MEDS: ONDANSETRON INJ 4 MG/2 ML VIAL IV PUSH (18:07)
[2020-11-14] MEDS: PANTOPRAZOLE SODIUM IV 40 MG VIAL IV PUSH (20:01)
[2020-11-14] MEDS: diphenhydrAMINE HCl INJ 50 MG/ML VIAL 25 MG IV PUSH (20:20)
[2020-11-14] MEDS: METOCLOPRAMIDE HCL INJ 10 MG/2 ML VIAL IV PUSH (20:22)
== END 2020-11-14 21:05 | disposition home or self-care (01) ==
PROVIDERS: Emergency Provider Emergency Medicine; PCP Nurse Practitioner Family
DX: K21.9 Gastro-esophageal reflux disease without esophagitis (principal); K76.0 Fatty (change of) liver, not elsewhere classified; I10 Essential (primary) hypertension; E03.9 Hypothyroidism, unspecified
CPT/HCPCS: 36415; 74177; 80053; 81003; 81025; 83690; 85025; 96361; 96365; 96375; 99284; C9113; J0131; J1200; J2405; J2765; J7040; Q9967

== ENCOUNTER 2021-01-26 14:19 | Emergency (ER) | payer OTHER, SELFPAY ==
[2021-01-26 14:29] VITALS: BP 191/98; PULSE 72; RESP 16; TEMP 36.6; O2SAT 98
--- NOTE | 2021-01-26 14:45 | ED.GENADULT ---
HPI - General Adult General Chief complaint: Ear Stated complaint: ear pain Time Seen by Provider: 01/26/21 14:32 Source: patient and RN notes reviewed Mode of arrival: ambulatory Limitations: no limitations History of Present Illness HPI narrative: Patient presents today with a 2-day history of left ear pain, primarily in the external ear. Denies decreased hearing. States she has been taking ibuprofen without relief. She has also been using leftover neomycin eardrops without relief. She currently rates her pain 10/10. Patient has had a hole in her eardrum since she was 7 and had 4 tubes placed in that ear in that same year. MD complaint: Left ear pain Related Data Home Medications Medication Instructions Recorded Confirmed carvedilol BID 04/29/20 levothyroxine 350 DAILY 04/29/20 levothyroxine 350 DAILY 04/29/20 Allergies Allergy/AdvReac Type Severity Reaction Status Date / Time lisinopril Allergy Intermediate leg Verified 01/26/21 14:31 swelling morphine AdvReac Mild Nausea and Verified 01/26/21 14:31 Vomiting Review of Systems Review of Systems: Narrative: CONSTITUTIONAL: Denies body aches, fever, chills, or sweats. EYES: Denies visual changes, redness, or discharge. ENT: Denies rhinorrhea, congestion, sore throat. + Left ear pain CARDIOVASCULAR: Denies chest pain, palpitations, or edema. RESPIRATORY: Denies cough or dyspnea. GASTROINTESTINAL: Denies abdominal pain, nausea, vomiting, or diarrhea. GENITOURINARY: Denies dysuria or hematuria. SKIN: Denies rash, itching, or wounds. MUSCULOSKELETAL: Denies back pain, joint pain, or myalgia. NEUROLOGIC: Denies headache, numbness, tingling, or weakness. PSYCH: Denies depression or anxiety. 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 Swelling of both lower extremities Surgical History Surgical History (Updated 04/29/20 @ 13:08 by ULISES Juan) History of ankle surgery Right, x5 History of dental surgery History of ear surgery Left, x4 Hx of appendectomy Family History Family History (Updated 04/29/20 @ 13:08 by ULISES Juan) Father Alive and well Mother Hypertension Social History Social History (Updated 04/29/20 @ 13:09 by ULISES Juan) Smoking status: Never smoker Tobacco type: cigarettes Second hand tobacco smoke exposure: Yes Alcohol intake: never Substance use: never Gender identity (if verbalized by the patient): Female Spiritual care concerns: No Comments At time of signature, I have reviewed and agree with nursing past medical, surgical, social and family history unless otherwise noted. Please see nursing chart for further information. There is no relevant family history pertinent to the presenting complaint Exam Narrative: Exam Narrative: GENERAL: Well-appearing, well-nourished, and in no acute distress. HEAD: Normocephalic, atraumatic. EYES: EOMI. No redness or drainage. Conjunctivae normal. ENT: Mucous membranes pink and moist. Nares clear. No rhinorrhea. Right TM normal. Left TM erythematous with obvious defect. NECK: Normal AROM. Supple. Left postauricular lymphadenopathy CHEST: No respiratory distress. EXTREMITIES: Normal range of motion. No edema. SKIN: Warm, dry, no rash. Capillary refill normal. Normal skin turgor. NEURO: No focal deficits. Alert and oriented x3. Gait steady. PSYCH: Normal affect. No signs of depression or anxiety. Course Vital Signs Vital signs: Vital Signs Temperature 97.8 F 01/26/21 14:29 Pulse Rate 72 01/26/21 14:29 Respiratory Rate 16 01/26/21 14:29 Blood Pressure 191/98 H 01/26/21 14:29 Pulse Oximetry 98 01/26/21 14:29 Temperature 97.8 F 01/26/21 14:29 Pulse Rate 72 01/26/21 14:29 Respiratory Rate 16 01/26/21 14:29 Blood Pressure 191/98 H 01/26/21 14:29 Pulse Ox
== END 2021-01-26 14:56 | disposition home or self-care (01) ==
PROVIDERS: Emergency Provider Nurse Practitioner; PCP Nurse Practitioner Family
DX: H66.92 Otitis media, unspecified, left ear (principal); I10 Essential (primary) hypertension; E03.1 Congenital hypothyroidism without goiter
CPT/HCPCS: 99213; G0463

== ENCOUNTER 2021-02-08 09:21 | Outpatient (RCR) | payer OTHER, SELFPAY ==
[2021-02-08 09:38] VITALS: BMI 44.9
[2021-02-08 09:39] VITALS: BMI 44.9
== END 2021-04-30 14:29 | disposition home or self-care (01) ==
LOC: ANHDMC 09:21
PROVIDERS: PCP Nurse Practitioner Family
DX: E66.01 Morbid (severe) obesity due to excess calories (principal); R73.03 Prediabetes; Z71.3 Dietary counseling and surveillance
CPT/HCPCS: 97803

== ENCOUNTER 2021-05-31 15:02 | Outpatient (RCR) | payer OTHER, SELFPAY ==
[2021-05-31 15:10] VITALS: BMI 103.7
== END 2021-08-20 13:54 | disposition home or self-care (01) ==
LOC: ANHDMC 15:02
PROVIDERS: PCP Nurse Practitioner Family
DX: E66.01 Morbid (severe) obesity due to excess calories (principal); R73.03 Prediabetes; Z71.3 Dietary counseling and surveillance
CPT/HCPCS: 97803

== ENCOUNTER 2022-07-12 05:08 | Emergency (ER) | payer SELFPAY ==
[2022-07-12 05:09] VITALS: BP 228/135; PULSE 96; RESP 24; TEMP 36.3; O2SAT 100
--- NOTE | 2022-07-12 05:28 | ECG_ITS ---
Measurements Intervals [place] Rate: 84 P: 55 RI: 187 QRS: -14 QRSD: 106 T: 67 QT: 379 QTc: 449 Interpretive Statements SINUS RHYTHM WITH OCCASIONAL VENTRICULAR PREMATURE COMPLEXES INCOMPLETE RIGHT BUNDLE BRANCH BLOCK [90+ ms QRS DURATION, TERMINAL R IN V1/V2, 40+ ms S IN I/aVL/V4/V5/V6] NO PREVIOUS ECG AVAILABLE FOR COMPARISON Electronically Signed On 07-12-2022 17:12:18 SERVICE DISPATCHER by Aung Phelan M.D.
--- NOTE | 2022-07-12 05:53 | ED.GENADULT ---
HPI - General Adult General Chief complaint: Unspecified Stated complaint: toothache Time Seen by Provider: 07/12/22 05:53 History of Present Illness HPI narrative: this is a 51-year-old female presenting ED with a chief complaint of ear pain. Patient says that she started have sudden onset of ear pain 2 days ago. She saw her primary care physician who gave her amoxicillin and Tylenol. However this did not help with the pain. Patient denies fever, chills, nausea, vomiting, diarrhea, chest pain or difficulty breathing. Patient was in so much pain last night she did not sleep. She has not taken her blood pressure medications this morning. Related Data Home Medications Medication Instructions Recorded Confirmed carvedilol 25 mg tablet BID 04/29/20 levothyroxine 300 mcg tablet 350 DAILY 04/29/20 levothyroxine 50 mcg tablet 350 DAILY 04/29/20 Allergies Allergy/AdvReac Type Severity Reaction Status Date / Time lisinopril Allergy Intermediate leg Verified 01/26/21 14:31 swelling morphine AdvReac Mild Nausea and Verified 01/26/21 14:31 Vomiting Review of Systems Review of Systems: CONSTITUTIONAL: Denies night sweats. EYES: No eye pain ENT: Denies rhinorrhea CARDIOVASCULAR: Denies palpitations RESPIRATORY: Denies hemoptysis GASTROINTESTINAL: Denies hematemesis GENITOURINARY: Denies hematuria. SKIN: Denies rash MUSCULOSKELETAL: Denies myalgia. NEUROLOGIC: Denies weakness. 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 Swelling of both lower extremities Surgical History Surgical History History of ankle surgery Right, x5 History of dental surgery History of ear surgery Left, x4 Hx of appendectomy Family History Family History Father Alive and well Mother Hypertension Social History Social History Smoking status: Never smoker Tobacco type: cigarettes Second hand tobacco smoke exposure: Yes Alcohol intake: never Substance use: never Gender identity (if verbalized by the patient): Female Spiritual care concerns: No Exam Narrative: APPEARANCE: patient appears uncomfortable Head: patient has an erythematous and bulging tympanic membrane on the left. Right is normal. Oral exam revealed poor dentition but no obvious signs of infection or abscess. EYES: EOMI, NOSE: Atraumatic NECK: Trachea midline RESPIRATORY: No increased rate of breathing , clear to auscultation bilaterally CARDIOVASCULAR: RRR, chronic edema of the lower extremities the patient states is at her baseline. ABDOMINAL: Obese, nontender no guarding or rebound MUSCULOSKELETAl: No obvious deformities NEURO: Alert. Moving 4/4 extremities SKIN:: Warm, dry. Normal color PSYCHIATRIC: Normal affect Course Vital Signs Vital signs: Vital Signs Temperature 97.3 F L 07/12/22 05:09 Pulse Rate 96 07/12/22 05:09 Respiratory Rate 24 H 07/12/22 05:09 Blood Pressure 228/135 H 07/12/22 05:09 Pulse Oximetry 100 07/12/22 05:09 Oxygen Delivery Room Air 07/12/22 05:09 Temperature 97.3 F L 07/12/22 05:09 Pulse Rate 96 07/12/22 05:09 Respiratory Rate 24 H 07/12/22 05:09 Blood Pressure 228/135 H 07/12/22 05:09 Pulse Oximetry 100 07/12/22 05:09 Oxygen Delivery Room Air 07/12/22 05:09 Medical Decision Making MDM Narrative Medical decision making narrative: This is a 51-year-old female presenting ED with ear pain. Patient has otitis media on the left. she has appropriate antibiotics from her primary care physician. She has been taking Tylenol 500mg with no relief. Her pain was treated with [place] in the emergency department. She will be discharged with instructions to
[2022-07-12 06:20] VITALS: O2SAT 98
[2022-07-12 06:30] VITALS: O2SAT 98
[2022-07-12 06:32] VITALS: BP 182/120; O2SAT 100
[2022-07-12] MEDS: HYDROcodone/acetaminophen (*CRX) 5-325 MG TABLET 2 TAB PO (06:32)
[2022-07-12 07:37] VITALS: BP 180/100; PULSE 70; RESP 12; O2SAT 98
== END 2022-07-12 09:21 | disposition home or self-care (01) ==
PROVIDERS: Emergency Provider Emergency Medicine; PCP Nurse Practitioner Family
DX: H66.92 Otitis media, unspecified, left ear (principal); I10 Essential (primary) hypertension; E03.9 Hypothyroidism, unspecified; I45.10 Unspecified right bundle-branch block
CPT/HCPCS: 93005; 99283; A9270

== ENCOUNTER 2023-02-13 08:27 | Emergency (ER) | payer OTHER, SELFPAY ==
[2023-02-13] VITALS (8 sets, daily range): BP systolic 126–171; BP diastolic 80–116; PULSE 59–82; RESP 14–18; TEMP 36.4–36.8; O2SAT 94–98
--- NOTE | ~2023-02-13 | XR_ITS ---
EXAMINATION: XR chest 1V portable INDICATION: Near syncope, weakness TECHNIQUE: Portable AP chest at 0852 hours COMPARISON: 09/26/2017 FINDINGS: The lung volumes are low. There are minimal opacities of the mid and lower lung zones. No p leural effusion or pneumothorax. The cardiomediastinal silhouette is normal for technique. IMPRESSION: 1. Minimal opacities of the mid and lower lung zones, consistent with atelectasis versus pneumonia. Reviewed, dictated and finalized at location L. IMPRESSION: 1. Minimal opacities of the mid and lower lung zones, consistent with atelectas is versus pneumonia.
--- NOTE | 2023-02-13 08:36 | ECG_ITS ---
Measurements Intervals [place] Rate: 64 P: 49 MN: 197 QRS: -29 QRSD: 111 T: 67 QT: 374 QTc: 388 Interpretive Statements SINUS RHYTHM POSSIBLE LEFT ATRIAL ENLARGEMENT INCOMPLETE RIGHT BUNDLE BRANCH BLOCK DELAYED PRECORDIAL R/S TRANSITION NONSPECIFIC T-WAVE ABNORMALITY- HIGH LATERAL LEADS BORDERLINE ECG COMPARED TO ECG 07/12/2022 05:33:11 NO SIGNIFICANT CHANGES Electronically Signed On 02-13-2023 8:58:45 CDT by Mendoza Gomez D.O.
--- NOTE | 2023-02-13 08:45 | ED.GENADULT ---
HPI - General Adult General Chief complaint: Syncope Stated complaint: near syncopy Time Seen by Provider: 02/13/23 08:32 History of Present Illness HPI narrative: 52-year-old female history of hypertension presented to the emergency department for evaluation after having a near syncopal episode. Patient states while she was walking this morning she had onset of lightheaded and dizziness. Patient denies any associated chest pain or shortness of breath. Patient states that she needed to rest while she was walking but then did feel improved. Patient denies any actual syncope. Patient has no prior history of CVA or GA but has had a stress test approximately 5 years ago. Patient denies any prior history of Angiocath. Patient does have chronic lymphedema and venous stasis changes of the bilateral lower extremities. Patient is being treated with antibiotics for a suspected lower extremity cellulitis and patient was scheduled to have follow-up with her primary care physician today. 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 Swelling of both lower extremities Surgical History Surgical History History of ankle surgery Right, x5 History of dental surgery History of ear surgery Left, x4 Hx of appendectomy Family History Family History Father Alive and well Mother Hypertension Social History Social History Smoking status: Never smoker Tobacco type: cigarettes Second hand tobacco smoke exposure: Yes Alcohol intake: never Substance use: never Living arrangements: with family Occupation/Education: occupation Gender identity (if verbalized by the patient): Female Spiritual care concerns: No Exam Narrative: APPEARANCE: Well appearing, no pain, no distress, well-nourished. HEAD: normocephalic, atraumatic. EYES: PERRLA/EOMI, conjunctivae clear. NOSE: Normal no drainage NECK: Supple. No adenopathy, no masses. RESPIRATORY: Airway patent, respirations nonlabored. Clear to auscultation bilaterally, no rales, rhonchi, wheezing. CARDIOVASCULAR: Regular rate and rhythm without murmurs rubs or gallops. ABDOMINAL: Soft, nontender, nondistended, normal bowel sounds MUSCULOSKELETAL: Moves all extremities. Strength/ROM intact, No edema, No calf tenderness. NEURO: Alert. Cranial nerves II through XII intact. Good gait. Good coordination SKIN: Chronic mucinous changes with mild erythema, no tenderness to palpation Course Course Emergency Course: 52-year-old female presented the ED for evaluation of near syncope. Upon arrival to the ED patient states that her symptoms are resolved. Patient did not have orthostatic vital signs. Patient felt back to her baseline when ambulating. Patient was afebrile with no leukocytosis and a stable hemoglobin. Patient had no significant electrolyte abnormalities. Patient did feel improved in the ED. Patient denies any complaints. Patient was able to ambulate at her baseline. Patient was comfortable with the plan for discharge and close follow-up. Vital Signs Vital signs: Vital Signs Temperature 98.3 F 02/13/23 08:26 Pulse Rate 70 02/13/23 08:26 Respir
[2023-02-13 08:49] LABS: Basophils Absolute Auto 0.1 K/mm3 (0.0-0.1); Basophils Percent Auto 0.7 % (0.2-1.2); Eosinophils Absolute Auto 0.6 K/mm3 (0-0.3); Eosinophils Percent Auto 8.5 % (0-4.4); Hematocrit 39.5 % (37.0-47.0); Hemoglobin 12.3 g/dL (12.0-15.0); Immature Granulocyte Absolute 0.04 K/mm3 (0.00-0.031); Immature Granulocyte Percent A 0.5 % (0-0.5); Lymphocytes Absolute Auto 1.23 K/mm3 (0.9-3.2); Lymphocytes Percent Auto 16.4 % (18.3-44.2); Mean Corpuscular HGB Conc 31.1 g/dl (32-36); Mean Corpuscular Hemoglobin 29.1 pg (26-34); Mean Corpuscular Volume 93.6 fl (80-100); Mean Platelet Volume 8.9 fl (7.4-10.4); Monocytes Absolute Auto 0.4 K/mm3 (0.1-0.6); Monocytes Percent Auto 4.9 % (2.6-8.5); Neutrophils Absolute Auto 5.2 K/mm3 (1.3-6.7); Platelet Count Result 248 k/mm3 (150-375); Red Blood Count 4.22 M/mm3 (4.2-5.4); Red Cell Distribution Width 13.9 % (11.5-14.5); White Blood Count 7.5 K/mm3 (4.5-10.0)
[2023-02-13 08:58] LABS: Alanine Aminotransferase 26 U/L (6-35); Alkaline Phosphatase 90 U/L (38-126); Anion Gap 6 mmol/L (8-16); Aspartate Amino Transferase 30 U/L (14-36); Bilirubin,Total 0.4 mg/dL (0.2-1.3); Blood Urea Nitrogen 16 mg/dL (7-17); Calcium 8.6 mg/dL (8.4-10.2); Carbon Dioxide 28 mmol/L (22-30); Chloride 104 mmol/L (98-107); Estimated CRCL calculation 94 ml/min; Estimated Glomerular Filt Rate > 60; Glucose 147 mg/dL (65-110); Potassium 3.9 mmol/L (3.4-5.0); Sodium 138 mmol/L (137-145)
== END 2023-02-13 11:46 | disposition home or self-care (01) ==
PROVIDERS: Emergency Provider Emergency Medicine; PCP Nurse Practitioner Family
DX: R55 Syncope and collapse (principal); I10 Essential (primary) hypertension; E03.9 Hypothyroidism, unspecified
CPT/HCPCS: 36415; 71045; 80053; 85025; 93005; 99284

== ENCOUNTER 2023-07-20 09:12 | Emergency (ER) | payer OTHER, SELFPAY ==
[2023-07-20 09:13] VITALS: BP 192/117; PULSE 68; RESP 16; TEMP 36.6; O2SAT 98
--- NOTE | 2023-07-20 09:40 | ED.NAVMDI ---
HPI - Nausea/Vomiting/Diarrhea General Chief complaint: Nausea/Vomiting/Diarrhea Stated complaint: diarrhea and nausea from ozempic shot Time Seen by Provider: 07/20/23 09:38 Source: patient Mode of arrival: ambulatory Limitations: no limitations History of Present Illness HPI Narrative: Kassy is a 52-year-old female patient presenting to the ER today for diarrhea as nausea. She reports she has had the symptoms since she started the Ozempic shot 3 weeks ago. Reports that she had a large diarrhea episode today. Also reports some abdominal cramping with nausea without vomiting. No fever or chills. Related Data Home Medications Medication Instructions Recorded Confirmed carvedilol 25 mg tablet BID 04/29/20 levothyroxine 300 mcg tablet 350 DAILY 04/29/20 levothyroxine 50 mcg tablet 350 DAILY 04/29/20 Allergies Allergy/AdvReac Type Severity Reaction Status Date / Time lisinopril Allergy Intermediate leg Verified 07/20/23 09:40 swelling morphine AdvReac Mild Nausea and Verified 07/20/23 09:40 Vomiting Review of Systems Review of Systems: Pertinent positives per HPI. Patient denies any fever, chills, rash, headache, visual changes, dizziness, cough, runny nose, sore throat, shortness of breath, chest pain, palpitations, vomiting, constipation, or any urinary issues. 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 Swelling of both lower extremities Surgical History Surgical History History of ankle surgery Right, x5 History of dental surgery History of ear surgery Left, x4 Hx of appendectomy Family History Family History Father Alive and well Mother Hypertension Social History Social History Smoking status: Never smoker Tobacco type: cigarettes Second hand tobacco smoke exposure: Yes Alcohol intake: never Substance use: never Living arrangements: with family Occupation/Education: occupation Gender identity (if verbalized by the patient): Female Spiritual care concerns: No Comments At the time of my signature, I reviewed and agree with the nursing past medical, surgical, social, and family history. There is no relevant family history pertinent to the patient complaint. Exam Narrative: General: Well-developed, well nourished, in no apparent distress. Head: Normocephalic, atraumatic. Cardio: Regular rate and rhythm, s1 and s2 normal, no murmur appreciated. Resp: Clear to auscultation bilaterally, no rhonchi, rales, wheezing or rubs. Abdomen: Soft, pliable, bowel sounds present in all quadrants, generalized tender to palpation with abdominal cramping, no organomegly, no CVAT tenderness. Course Course Emergency Course: Portions of this record may have been created with voice recognition software. Vital Signs Vital signs: Vital Signs Temperature 36.6 C 07/20/23 09:13 Pulse Rate 68 07/20/23 09:13 Respiratory Rate 16 07/20/23 09:13 Blood Pressure 192/117 H 07/20/23 09:13 Pulse Oximetry 98 07/20/23 09:13 Oxygen Delivery Room Air 07/20/23 09:13 Temperature 36.6 C 07/20/23 09:13 Pulse Rate 68 07/20/23 09:13 Respiratory Rate 16 07/20/23 09:13 Blood Pressure 192/117 H 07/20/23 09:13 Pulse Oximetry 98 07/20/23 09:13 Oxygen Delivery Room Air 07/20/23 09:13 Vital signs reviewed MDM - Nausea/Vomiting/Diarrhea MDM Narrative Medical decision making narrative: At the time of visit patient is resting comfortably on the exam table. Patient appears to be nontoxic. Labs and urine were ordered. INT was established and normal saline 1 L bolus with 4 mg of Zofran given. Symptoms have improved. Labs reviewed and are unremarkable.
[2023-07-20] MEDS: ONDANSETRON INJ 4 MG/2 ML VIAL IV PUSH (09:50)
[2023-07-20] MEDS: SODIUM CHLORIDE 0.9% IV 1,000 ML 999 ML IV CONT (09:50)
[2023-07-20 09:58] LABS: Basophils Percent Auto 0.6 % (0.2-1.2); Eosinophils Absolute Auto 0.2 K/mm3 (0-0.3); Eosinophils Percent Auto 2.8 % (0-4.4); Hematocrit 41.7 % (37.0-47.0); Immature Granulocyte Absolute 0.02 K/mm3 (0.00-0.031); Immature Granulocyte Percent A 0.3 % (0-0.5); Lymphocytes Absolute Auto 1.55 K/mm3 (0.9-3.2); Lymphocytes Percent Auto 23.7 % (18.3-44.2); Mean Corpuscular HGB Conc 31.2 g/dl (32-36); Mean Corpuscular Hemoglobin 29.3 pg (26-34); Mean Corpuscular Volume 94.1 fl (80-100); Monocytes Absolute Auto 0.3 K/mm3 (0.1-0.6); Monocytes Percent Auto 5.2 % (2.6-8.5); Neutrophils Absolute Auto 4.4 K/mm3 (1.3-6.7); Neutrophils Percent Auto 67.4 % (45.5-73.1); Platelet Count Result 273 k/mm3 (150-375); Red Blood Count 4.43 M/mm3 (4.2-5.4); Red Cell Distribution Width 13.2 % (11.5-14.5); White Blood Count 6.5 K/mm3 (4.5-10.0)
[2023-07-20 10:10] LABS: Alanine Aminotransferase 24 U/L (6-35); Albumin Level 4.1 g/dL (3.5-5.1); Alkaline Phosphatase 89 U/L (38-126); Anion Gap 3 mmol/L (8-16); Aspartate Amino Transferase 32 U/L (14-36); Bilirubin,Total 0.8 mg/dL (0.2-1.3); Blood Urea Nitrogen 12 mg/dL (7-17); Calcium 8.8 mg/dL (8.4-10.2); Carbon Dioxide 27 mmol/L (22-30); Chloride 103 mmol/L (98-107); Estimated CRCL calculation 93 ml/min; Estimated Glomerular Filt Rate > 60; Glucose 101 mg/dL (65-110); Lipase 74 U/L (23-300); Potassium 4.7 mmol/L (3.4-5.0); Sodium 133 mmol/L (137-145)
[2023-07-20 10:56] LABS: Appearance Urine Cloudy (Clear); Bacteria Urine None Seen /hpf; Bilirubin Urine Negative (Negative); Blood Urine Negative (Negative); Color Urine Yellow (Yellow); Glucose Urine UA Negative (Negative); Ketones Urine Negative (Negative); Leukocyte Esterase Ur Trace LEU/UL (Negative); Nitrate Urine Negative (Negative); Non Pathogenic Casts 0-2; Protein Urine 1+ mg/dL (Negative); RBC Urine 0-2 /hpf (0-2); Specific Grav Ur 1.018 (1.001-1.035); Squamous Epithelial Cell Urine Few /hpf (Few); Urobilinogen Urine 0.2 mg/dL (<2.0); pH Urine 6.5 (5.0-9.0)
[2023-07-20 10:58] LABS: Add Urine Microscopic? YES
[2023-07-20 11:05] VITALS: PULSE 64; RESP 20; O2SAT 100
[2023-07-20 11:22] VITALS: BP 144/90; PULSE 68; RESP 15; O2SAT 98
== END 2023-07-20 11:28 | disposition home or self-care (01) ==
PROVIDERS: Emergency Provider Nurse Practitioner Family; PCP Family Medicine
DX: K52.1 Toxic gastroenteritis and colitis (principal); I10 Essential (primary) hypertension; E03.9 Hypothyroidism, unspecified; Z77.22 Contact with and (suspected) exposure to environmental tobacco smoke (acute) (chronic); T50.995A Adverse effect of other drugs, medicaments and biological substances, initial encounter
CPT/HCPCS: 36415; 80053; 81001; 83690; 85025; 87077; 87086; 87186; 96361; 96374; 99284; J2405; J7030

== ENCOUNTER 2023-08-20 14:43 | Emergency (ER) | payer OTHER, SELFPAY ==
[2023-08-20] VITALS (11 sets, daily range): BP systolic 106–140; BP diastolic 64–88; PULSE 63–76; RESP 15–22; TEMP 36.3; O2SAT 92–97
--- NOTE | ~2023-08-20 | XR_ITS ---
EXAMINATION: XR chest 1V portable DATE: 08/20/2023 18:06 INDICATION: Syncope. COVID-19. TECHNIQUE: A single frontal view of the chest was obtained. COMPARISON: Chest single view 02/13/2023, CT abdomen and pelvis 11/14/2020 FINDINGS: There is no pneumonia, pleural effusion, or pneumothorax. The heart size is normal. IMPRESSION: 1. No acute cardiopulmonary disease. Reviewed, dictated and finalized at location E. EMIC ADVISING DIRECTOR
--- NOTE | 2023-08-20 15:01 | ECG_ITS ---
Measurements Intervals [place] Rate: 61 P: 52 VT: 197 QRS: -16 QRSD: 111 T: 28 QT: 475 QTc: 479 Interpretive Statements SINUS RHYTHM INCOMPLETE RIGHT BUNDLE BRANCH BLOCK DELAYED PRECORDIAL R/S TRANSITION BORDERLINE T WAVE ABNORMALITY- ANTERIOR LEADS BORDERLINE ECG NO PREVIOUS ECG AVAILABLE FOR COMPARISON Electronically Signed On 08-20-2023 15:23:25 STIFF LEG OPERATOR by Mendoza Gomez D.O.
--- NOTE | 2023-08-20 15:35 | ED.DIZZY ---
HPI - Dizziness General Chief Complaint: Syncope Stated Complaint: r/o PE from [facility] Time Seen by Provider: 08/20/23 15:31 History of Present Illness HPI Narrative: Patient is a 52-year-old female who presents to the emergency department this afternoon complaining of a near syncopal episode that occurred at home. Patient states that she was recently diagnosed with COVID 3 or 4 days ago since that she has not been feeling well and her also tested positive for COVID as well. Patient states that today she was sitting by the kitchen and got up and then felt lightheaded so she walked over to the bathroom to get a washcloth and sat on the toilet in the bathroom. Patient felt so lightheaded as if she was going to pass out so she asked her to call EMS and was brought here for further evaluation. Patient believes that she may have passed that, she is unsure, but states that she slumped over onto the ground from the toilet with the help of her and denies hitting her head. Patient denies any additional symptoms including chest pain, shortness of breath, nausea, vomiting, abdominal pain, dysuria, hematuria, constipation, diarrhea, melena, hematochezia, fevers or chills. Patient also denies any headaches, room spinning dizziness sensation, blurry visions, focal weakness, numbness and or tingling. There are no other modifying, alleviating, or precipitating factors at this time. Related Data Home Medications Medication Instructions Recorded Confirmed carvedilol 25 mg tablet BID 04/29/20 levothyroxine 300 mcg tablet 350 DAILY 04/29/20 levothyroxine 50 mcg tablet 350 DAILY 04/29/20 Allergies Allergy/AdvReac Type Severity Reaction Status Date / Time lisinopril Allergy Intermediate leg Verified 07/20/23 09:40 swelling morphine AdvReac Mild Nausea and Verified 07/20/23 09:40 Vomiting Review of Systems Review of Systems: All systems are reviewed and are negative unless stated otherwise in the HPI. 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 Swelling of both lower extremities Surgical History Surgical History History of ankle surgery Right, x5 History of dental surgery History of ear surgery Left, x4 Hx of appendectomy Family History Family History Father Alive and well Mother Hypertension Social History Social History Smoking status: Never smoker Tobacco type: cigarettes Second hand tobacco smoke exposure: Yes Alcohol intake: never Substance use: never Living arrangements: with family Occupation/Education: occupation Gender identity (if verbalized by the patient): Female Spiritual care concerns: No Exam Narrative: General: Alert, awake, afebrile, in no acute distress. HEENT: PERRL, no rhinorrhea, no post nasal drip, oropharynx clear. Neck: Trachea midline, no JVD, no lymphadenopathy. Cardiovascular: Regular rate and rhythm, no murmurs, rubs or gallops, no peripheral edema. Respiratory: Clear to auscultation bilaterally, no tachypnea, no wheezing, no rhonchi, no rubs, no respiratory distress. Abdomen: Soft, nontender, nondistended, no rebound, no guarding, no peritoneal signs. Musculoskeletal: No joint swelling or deformity, normal muscle tone. Skin: No rashes or petechia, no signs of infection. Psychiatric: Alert and oriented, normal behavior and judgment for situation. Neurological: Alert and oriented to person, place, and time. Follows all commands. No focal deficits, speech is clear and fluent. Course Vital Signs Vital signs: Vital Signs Temperature 97.4 F L 08/20/23 14:52 Pulse Rate 67 08/20/23 14:52 Respiratory Rate 20 08/20/23 14:52 Blood Pressure 112/64
[2023-08-20 15:49] LABS: Basophils Percent Auto 0.4 % (0.2-1.2); Eosinophils Absolute Auto 0.1 K/mm3 (0-0.3); Eosinophils Percent Auto 1.1 % (0-4.4); Hematocrit 40.7 % (37.0-47.0); Hemoglobin 12.6 g/dL (12.0-15.0); Immature Granulocyte Absolute 0.02 K/mm3 (0.00-0.031); Immature Granulocyte Percent A 0.4 % (0-0.5); Lymphocytes Absolute Auto 1.05 K/mm3 (0.9-3.2); Lymphocytes Percent Auto 19.7 % (18.3-44.2); Mean Corpuscular Hemoglobin 29.2 pg (26-34); Mean Corpuscular Volume 94.2 fl (80-100); Mean Platelet Volume 8.7 fl (7.4-10.4); Monocytes Absolute Auto 0.3 K/mm3 (0.1-0.6); Monocytes Percent Auto 5.1 % (2.6-8.5); Neutrophils Absolute Auto 3.9 K/mm3 (1.3-6.7); Neutrophils Percent Auto 73.3 % (45.5-73.1); Platelet Count Result 215 k/mm3 (150-375); Red Blood Count 4.32 M/mm3 (4.2-5.4); Red Cell Distribution Width 13.7 % (11.5-14.5); White Blood Count 5.3 K/mm3 (4.5-10.0)
[2023-08-20] MEDS: SODIUM CHLORIDE 0.9% IV 1,000 ML 150 ML IV CONT (16:26)
[2023-08-20 17:13] LABS: Alanine Aminotransferase 24 U/L (6-35); Albumin Level 3.8 g/dL (3.5-5.1); Alkaline Phosphatase 89 U/L (38-126); Anion Gap 6 mmol/L (8-16); Aspartate Amino Transferase 35 U/L (14-36); Bilirubin,Total 0.9 mg/dL (0.2-1.3); Blood Urea Nitrogen 14 mg/dL (7-17); Calcium 8.6 mg/dL (8.4-10.2); Carbon Dioxide 29 mmol/L (22-30); Chloride 101 mmol/L (98-107); Estimated CRCL calculation 104 ml/min; Estimated Glomerular Filt Rate > 60; Glucose 134 mg/dL (65-110); Magnesium 2.1 mg/dL (1.6-2.3); Potassium 4.3 mmol/L (3.4-5.0); Sodium 136 mmol/L (137-145)
[2023-08-20 17:23] LABS: Troponin I < 0.012 ng/mL (0.000-0.034)
--- NOTE | 2023-08-20 19:19 | PC.NURSE ---
Pt called and notified that pt left medications in pt room, pt returning to ED to retrieve medications.
== END 2023-08-20 19:09 | disposition home or self-care (01) ==
PROVIDERS: Emergency Provider Emergency Medicine; PCP Family Medicine
DX: R55 Syncope and collapse (principal); I10 Essential (primary) hypertension; E03.1 Congenital hypothyroidism without goiter
CPT/HCPCS: 36415; 71045; 80053; 83735; 84484; 85025; 93005; 96360; 96361; 99284; J7030

== ENCOUNTER 2024-01-09 09:25 | Emergency (ER) | payer OTHER, SELFPAY ==
--- NOTE | 2024-01-09 09:27 | ED.ABDPAIN ---
HPI - Abdominal Pain General Chief Complaint: Abdominal Pain Stated Complaint: abdominal pain Time Seen by Provider: 01/09/24 09:26 Source: patient Mode of arrival: ambulatory Limitations: no limitations History of Present Illness HPI narrative: Kassy is a 53-year-old female patient presenting to the clinic today with complaints of lower abdominal pain /low back pain that just started this morning. She reports She had a episode of incontinence with stool yesterday and thinks that this may have caused her to have a urinary tract infection. She denies any fever or chills. States she has sharp constant pain in the lower abdomen S radiate into her back. States she does not have menstrual periods but cannot tell me if she has gone through menopause or if she has had hysterectomy. Rates her pain currently a 10/10. History of appendicitis in the past with appendix removal but still has her gallbladder. No history of frequent UTIs or about concerns. Related Data Home Medications Medication Instructions Recorded Confirmed carvedilol 25 mg tablet BID 04/29/20 levothyroxine 300 mcg tablet 350 DAILY 04/29/20 levothyroxine 50 mcg tablet 350 DAILY 04/29/20 Allergies Allergy/AdvReac Type Severity Reaction Status Date / Time lisinopril Allergy Intermediate leg Verified 07/20/23 09:40 swelling morphine AdvReac Mild Nausea and Verified 07/20/23 09:40 Vomiting Review of Systems Review of Systems: Pertinent positives per HPI. Patient denies any fever, chills, rash, headache, visual changes, dizziness, cough, runny nose, sore throat, shortness of breath, chest pain, palpitations, nausea, vomiting, diarrhea, constipation. 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 Swelling of both lower extremities Surgical History Surgical History History of ankle surgery Right, x5 History of dental surgery History of ear surgery Left, x4 Hx of appendectomy Family History Family History Father Alive and well Mother Hypertension Social History Social History Smoking status: Never smoker Tobacco type: cigarettes Second hand tobacco smoke exposure: Yes Alcohol intake: never Substance use: never Living arrangements: with family Occupation/Education: occupation Gender identity (if verbalized by the patient): Female Spiritual care concerns: No Comments At the time of my signature, I reviewed and agree with the nursing past medical, surgical, social, and family history. There is no relevant family history pertinent to the patient complaint. Exam Narrative: General: Well-developed, well nourished, in no apparent distress. Head: Normocephalic, atraumatic. Cardio: Regular rate and rhythm, s1 and s2 normal, no murmur appreciated. Resp: Clear to auscultation bilaterally, no rhonchi, rales, wheezing or rubs. Abdomen: Soft, pliable, bowel sounds present in all quadrants, tender to palpation over the lower abdomen, no organomegly, no CVAT tenderness. Course Course Emergency Course: Portions of this record may have been created with voice recognition software. Vital Signs Vital signs: Vital Signs Temperature 36.4 C 01/09/24 09:37 Pulse Rate 68 01/09/24 09:37 Respiratory Rate 20 01/09/24 09:37 Blood Pressure 203/90 H 01/09/24 09:37 Pulse Oximetry 96 01/09/24 09:37 Oxygen Delivery Room Air 01/09/24 09:37 Temperature 36.4 C 01/09/24 09:37 Pulse Rate 82 01/09/24 11:33 Respiratory Rate 17 01/09/24 11:33 Blood Pressure 176/85 H 01/09/24 11:33 Pulse Oximetry 98 01/09/24 11:33 Oxygen Delivery Room Air 01/09/24 09:37 Vital signs reviewed MDM - Abdomin
[2024-01-09 09:37] VITALS: BP 203/90; PULSE 68; RESP 20; TEMP 36.4; O2SAT 96
[2024-01-09 10:04] LABS: Basophils Percent Auto 0.6 % (0.2-1.2); Eosinophils Absolute Auto 0.2 K/mm3 (0-0.3); Hematocrit 41.5 % (37.0-47.0); Hemoglobin 13.1 g/dL (12.0-15.0); Immature Granulocyte Absolute 0.03 K/mm3 (0.00-0.031); Immature Granulocyte Percent A 0.4 % (0-0.5); Lymphocytes Absolute Auto 1.29 K/mm3 (0.9-3.2); Lymphocytes Percent Auto 17.8 % (18.3-44.2); Mean Corpuscular HGB Conc 31.6 g/dl (32-36); Mean Corpuscular Volume 95.2 fl (80-100); Mean Platelet Volume 9.1 fl (7.4-10.4); Monocytes Absolute Auto 0.4 K/mm3 (0.1-0.6); Monocytes Percent Auto 5.8 % (2.6-8.5); Neutrophils Absolute Auto 5.3 K/mm3 (1.3-6.7); Neutrophils Percent Auto 72.4 % (45.5-73.1); Platelet Count Result 258 k/mm3 (150-375); Red Blood Count 4.36 M/mm3 (4.2-5.4); Red Cell Distribution Width 13.9 % (11.5-14.5); White Blood Count 7.3 K/mm3 (4.5-10.0)
[2024-01-09 10:10] LABS: Appearance Urine Cloudy (Clear); Bacteria Urine 1+ /hpf; Bilirubin Urine Negative (Negative); Blood Urine 3+ (Negative); Color Urine Yellow (Yellow); Glucose Urine UA Negative (Negative); Ketones Urine Negative (Negative); Leukocyte Esterase Ur 2+ LEU/UL (Negative); Nitrate Urine Positive (Negative); Protein Urine 1+ mg/dL (Negative); RBC Urine >100 /hpf (0-2); Specific Grav Ur 1.013 (1.001-1.035); Squamous Epithelial Cell Urine Occasional /hpf (Few); Urobilinogen Urine 0.2 mg/dL (<2.0); WBC Urine 21-50 /hpf (0-3); pH Urine 5.5 (5.0-9.0)
[2024-01-09 10:17] LABS: Alanine Aminotransferase 22 U/L (6-35); Albumin Level 4.2 g/dL (3.5-5.1); Alkaline Phosphatase 109 U/L (38-126); Anion Gap 5 mmol/L (4-12); Aspartate Amino Transferase 23 U/L (14-36); Bilirubin,Total 0.8 mg/dL (0.2-1.3); Blood Urea Nitrogen 11 mg/dL (7-17); Carbon Dioxide 29 mmol/L (22-30); Chloride 103 mmol/L (98-107); Estimated CRCL calculation 93 ml/min; Estimated Glomerular Filt Rate > 60; Glucose 131 mg/dL (65-110); Lipase 49 U/L (23-300); Potassium 4.2 mmol/L (3.4-5.0); Sodium 137 mmol/L (137-145)
[2024-01-09 10:32] LABS: Add Urine Microscopic? YES
[2024-01-09] MEDS: ACETAMINOPHEN 500 MG TABLET 1000 MG PO (11:31)
[2024-01-09 11:33] VITALS: BP 176/85; PULSE 82; RESP 17; O2SAT 98
== END 2024-01-09 11:35 | disposition home or self-care (01) ==
PROVIDERS: Emergency Provider Nurse Practitioner Family; PCP Nurse Practitioner Family
DX: N39.0 Urinary tract infection, site not specified (principal); I10 Essential (primary) hypertension; E03.1 Congenital hypothyroidism without goiter
CPT/HCPCS: 36415; 80053; 81001; 83690; 85025; 87086; 87088; 96365; 99284; A9270; J0696

== ENCOUNTER 2024-03-13 16:22 | Emergency (ER) | payer OTHER, SELFPAY ==
[2024-03-13 16:29] VITALS: BP 151/91; PULSE 82; RESP 22; TEMP 36.6; O2SAT 97
[2024-03-13 20:13] VITALS: BP 146/99; PULSE 63; RESP 16; TEMP 36.4; O2SAT 100
--- NOTE | 2024-03-13 20:32 | ED.EXTPRO ---
HPI - Extremity Problem General Chief complaint: Extremity Problem,Nontraumatic Stated complaint: drainage and lymph edema Time Seen by Provider: 03/13/24 20:23 History of Present Illness HPI Narrative: Patient here with chronic lymphedema, today noticed there was some leakage of fluid from RLE. 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 Swelling of both lower extremities Surgical History Surgical History History of ankle surgery Right, x5 History of dental surgery History of ear surgery Left, x4 Hx of appendectomy Family History Family History Father Alive and well Mother Hypertension Social History Social History Smoking status: Never smoker Tobacco type: cigarettes Second hand tobacco smoke exposure: Yes Alcohol intake: never Substance use: never Living arrangements: with family Occupation/Education: occupation Gender identity (if verbalized by the patient): Female Spiritual care concerns: No Exam Narrative: EXAMINATION OF ORGAN SYSTEMS/BODY AREAS: Constitutional: Vital signs per nursing GENERAL:[No acute distress, non-toxic appearing.] HEAD: Normal with no signs of head trauma. EYES: EOMI, conjunctiva normal ENT: Hearing grossly intact LUNGS: Nonlabored breathing. HEART: [Regular rate and rhythm] ABD: [Soft], [nontender to palpation] EXT: Large woody swelling bilateral lower extremities with venous stasis changes, no tenderness, no redness or redness SKIN: Venous stasis changes bilaterally; one tiny patch to RLE with small amount serous fluid, no induration NEURO: [Alert and oriented x 3. No gross focal sensory or strength deficits.] PSYCH: Normal affect Course Vital Signs Vital signs: Vital Signs Temperature 97.8 F 03/13/24 16:29 Pulse Rate 82 03/13/24 16:29 Respiratory Rate 22 H 03/13/24 16:29 Blood Pressure 151/91 H 03/13/24 16:29 Pulse Oximetry 97 03/13/24 16:29 Temperature 97.5 F L 03/13/24 20:13 Pulse Rate 63 03/13/24 20:13 Respiratory Rate 16 03/13/24 20:13 Blood Pressure 146/99 H 03/13/24 20:13 Pulse Oximetry 100 03/13/24 20:13 MDM - Extremity (Nontraumatic) MDM Narrative Medical decision making narrative: 53-year-old female with history of chronic venous stasis changes/lymphedema bilateral lower extremity presents here after noticing some leakage of fluid from her right lower leg, on exam she is well-appearing, the lymphedema appears quite chronic, there is no signs of cellulitis, leakage of fluid noted is to the right lower extremity and is serous fluid without any induration or tenderness, have very low concern for infection, patient would like a trial of Lasix to see if it will help within lymphedema, she already has specialist and is already using special compression stockings/machine for her legs. I have asked her to come back for any further issues and she is agreeable to this Discharge Plan Discharge Clinical Impression: Lower extremity edema Patient Disposition: Home, Self-Care Condition: Stable Instructions: Antibiotic Form, Lymphedema (ED) Additional Instructions
== END 2024-03-13 21:28 | disposition home or self-care (01) ==
LOC: ANHED 20:42
PROVIDERS: Emergency Provider Emergency Medicine; PCP Nurse Practitioner Family
DX: R60.0 Localized edema (principal); I10 Essential (primary) hypertension; E03.9 Hypothyroidism, unspecified
CPT/HCPCS: 99283

== ENCOUNTER 2024-10-12 09:58 | Outpatient (CLI) | payer BC, SELFPAY ==
--- NOTE | ~2024-10-12 | US_ITS ---
EXAMINATION: US thyroid DATE: 10/12/2024 10:36 INDICATION: Abnormal thyroid function tests. High TSH. TECHNIQUE: Multiple ultrasound images of the thyroid were obtained. COMPARISON: Chest CT 10/14/2014 FINDINGS: There is no visible thyroid tissue. No lymphadenopathy. IMPRESSION: 1. No visible thyroid tissue. Reviewed, dictated and finalized at location B.
--- OUTSIDE RECORDS SUMMARY | 2024-10-12 11:17 | XMS_ITS | Referral Summary ---
Author Organization [facility] Address [address] [place] [address] Care Team Providers Care Labor Conciliator Name Role Phone Puja Jessica NP Primary Care Provider [phone] Starr Roberson Unavailable [phone] Encounters Date Type Department Care Team Description 08/19/2024 Telephone [facility] [address] [address] Sabrina Green MD new referral to endocrinology 07/21/2024 9:00 AM [facility] Office Visit [facility] [address] [address] [place] [phone] Maude Zabala NP Lipid screening (Primary Dx); Mixed hyperlipidemia; Essential hypertension; Bilateral lower extremity edema; LUJAN (dyspnea on exertion); Morbid obesity (HCC) from Last 3 Months Allergies Active Allergy Reactions Criticality Noted Date Comments Lisinopril Swelling Medium 02/07/2020 Morphine Dizziness Medium Medications levothyroxine (SYNTHROID) 300 mcg tablet Take 1 tablet (300 mcg total) by mouth daily Active levothyroxine (SYNTHROID) 50 mcg tablet Take 1 tablet (50 mcg total) by mouth every morning 01/08/20 20 Active ergocalciferol (VITAMIN D) 50,000 unit capsule Take 50,000 Units by mouth once a week 01/06/20 20 Active carvediloL (COREG) 25 mg tablet Take 1 tablet (25 mg total) by mouth 2 (two) times a day Active furosemide (LASIX) 20 mg tabletIndications: Hypertensive heart disease with heart failure (HCC),Bilateral lower extremity edema TAKE 1 TABLET BY MOUTH EVERY DAY 30 tablet 1 05/23/20 22 Active Additional Information Patient not taking.Reported on 07/21/2024 rosuvastatin (CRESTOR) 20 mg tabletIndications: Mixed hyperlipidemia Take 0.5 tablets (10 mg total) by mouth daily 15 tablet 11 07/21/20 24 025 Active Active Problems Problem Noted Date Diagnosed Date Mixed hyperlipidemia 07/21/2024 Benign hypertensive heart disease without heart failure 07/21/2024 Hypertensive heart disease with heart failure Bilateral lower extremity edema 02/07/2020 LUJAN (dyspnea on exertion) 02/07/2020 Incontinence 06/03/2016 Unspecified urinary incontinence 06/03/2016 Essential hypertension 01/17/2015 Overview (11/07/2016): Essential hypertension Morbid obesity Social History Tobacco Use Types Packs/Day Years Used Date Smoking Tobacco: Never Smokeless Tobacco: Never Tobacco Cessation:Counseling Given: Not Answered Alcohol Use Standard Drinks/Week Comments Yes 0 (1 standard drink = 0.6 oz pur e alcohol) Comments Unknown Sex and Gender Information Value Date Recorded Sex Assigned at Not on file Legal Sex Female 3:36 AM [employer] Gender Identity Not on file Sexual Orientation Not on file Last Filed Vital Signs Vital Sign Reading Time Taken Comments Blood Pressure 138/90 07/21/2024 8:44 AM [employer] Pulse 73 07/21/2024 8:44 AM [employer] Temperature 36.5 C (97.7 F) 03/17/2020 12:58 PM CDT Respiratory Rate - - Oxygen Saturation 94% 07/21/2024 8:44 AM [employer] Inhaled Oxygen Concentration - - Weight 119.3 kg (263 lb) 07/21/2024 8:44 AM [employer] Height 154.9 cm (5' 1 ) 07/21/2024 8:44 AM [employer] Body Mass Index 49.69 07/21/2024 8:44 AM [employer] Plan of Treatment Not on file Procedures Procedure Name Priority Date/Time Associated Diagnosis Comments POCT LIPID PANEL Routine 07/21/2024 8:50 AM [employer] Lipid screening from Last 3 Months Results * POCT lipid panel (07/21/2024 8:50 AM [employer]) Cholesterol, POC 173 mg/dL HDL, POC 25 mg/dL Triglycerides, POC 151 mg/dL LDL Cholesterol POC 118 mg/dL Chol/HDL Ratio, POC 4.8 Non-HDL Cholesterol, POC 149 mg/dL Cholesterol Total, POC 173 mg/dL Capillary blood 07/21/2024 8 :50 AM [employer] Maude Zabala NP POINT OF CARE TEST ORDERABLE S Final Result from Last 3 Months Insurance [place] [employer] Care Teams Labor Conciliator Relationship Specialty Start Date End Date Puja Jessica, PHERESIS SPECIALIST [address] [facility] [address] [place] [address] PCP - General Family Medicine 07/21/24 Starr Roberson PA [address] [place] [address] 07/21/24
--- OUTSIDE RECORDS SUMMARY | 2024-10-12 11:17 | XMS_ITS | Data Portability ---
Author Organization [facility] Address [address] [place] [address] Care Team Providers [facility] [employer] Name Role Phone ROSALVA SIERRA Sales Office Coordinator Assessment No assessment recorded. Plan of Treatment Reminders Order Date Submit Date Provider Last Modified By Organization Details Last Modified Time Details Appointments None recorded. Lab TSH + free T4, serum 2018 019 [facility], [address] [place] [address], [facility] [address], [place], [address], 9 06:19:51 pap, IG + HPV, cervical 2016 017 [facility], [address] [place] [address], [address], [place], [address], 7 06:06:11 bacterial vaginosis + vaginitis panel, vaginal 2016 017 [facility], [address] [place] [address], [address], [place], [address], 7 16:13:55 test, urine 2016 017 bronson In-Office Order, Internal Use Only DO Not Attach Compendium DO Not Attach Compendium, Do Not Delete/merge, [id number] 7 15:58:46 lipid panel, serum 2016 017 bronson [facility], [address], [address], [place], [address], 7 19:14:33 TSH + free T4, serum 2016 017 bronson [facility], [address] [facility] [address], [address], [place], [address], 7 19:14:32 CMP, serum or plasma 2016 017 bronson [facility], [address] [facility] [address], [address], [place], [address], 7 19:14:33 CBC 2016 017 bronson [facility], [address] [facility] [address], [address], [place], [address], 7 19:14:32 urinalysis , dipstick 2016 017 bronson In-Office Order, Internal Use Only DO Not Attach Compendium DO Not Attach Compendium, Do Not Delete/merge, [id number] 17:54:29 Referral gastroente rologist referral - Please call patient to schedule appt. Thank you 2016 017 mark López MD, [address] [place], [address], 7 17:36:44 Procedures None recorded. Surgeries None recorded. Imaging MAMMO, screening, bilateral 2016 017 [facility], [address], [address], [address], 7 12:02:35 Medication Orders Zithromax Z-Umberto 250 mg tablet 2018 019 [facility], [address], [place], [address], 9 17:32:30 Ventolin HFA 90 mcg/actuat ion aerosol inhaler 2018 019 [facility], [address] [place], [address], 9 17:32:28 levothyrox ine 300 mcg tablet 2017 018 [facility], [address] [place], [address], 8 17:15:13 Zithromax Z-Umberto 250 mg tablet [address] [facility], [address] [place], [address], 9 17:10:05 albuterol sulfate 2.5 mg/3 mL (0.083 %) solution for nebulizati on 2017 [address] [facility] [address] [facility], [address] [place], [address], 9 17:10:22 oxybutynin chloride 5 mg tablet 2016 017 [facility], [address] [place], [address], 7 17:19:58 omeprazole 20 mg capsule,de layed release 2016 [address] [facility] [facility], [address] [place], [address], 9 17:09:31 Reglan 10 mg tablet [address] [facility], [address] [place], [address], 9 17:09:24 Patient TargetsNo targets recorded. Patient Instructions Encounter Date Encounter Id Patient Instructions Last Modified By Organization Details Last Modified Time 04/17/2017 [id number] mammogram: about this test bronson Not available 04/17/2017 15:58:46 06/11/2017 [id number] nausea and vomiting: care instructions cschindewolf Not available 06/12/2017 11:58:54 When You Want to Lose Weight: Care Instructions cschindewolf Not available 06/12/2017 11:58:55 learning about high blood pressure cschindewolf Not available 06/12/2017 11:58:54 10/08/2017 [id number] bronchitis: care instructions sieh Not available 10/08/2017 17:01:14 08/11/2018 [id number] bronchitis: care instructions si Not available 08/11/2018 17:24:22 Reason for Referral Please call patient to raúl che appt. Thank you Referring Physician: Charli Anderson, Internal Medicine, Encounter Date: 06/11/2017 Results Created Date Observation Date Name Description Value Unit Range Abnormal Flag Note LastModifiedBy Organization Detail LastModifiedTime 04/17/20 17 04/17/2017 urina lysis , dipst ick Leukocytes Negati ve Not Available In-Office Order Internal Use Only DO Not Attach Compendium DO Not Attach Compendium, Do Not Delete/merge, [id number] 04/17/2017 16:11:11 04/17/20 17 04/17/2017 urina lysis , dipst ick Nitrite negati ve Not Available In-Office Order Internal Use Only DO Not Attach Compendium DO Not Attach Compendium, Do Not Delete/merge, [id number] 04/17/2017 16:11:11 04/17/20 17 04/17/2017 urina lysis , dipst ick Urobilinogen .2 Not Available In-Of fice Order Internal Use Only DO Not Attach Compendium DO Not Attach Compendium, Do Not Delete/merge, [id number] 04/17/2017 16:11:11 04/17/20 17 04/17/2017 urina lysis , dipst ick Protein Negati ve Not Available In-Office Order Internal Use Only DO Not Attach Compendium DO Not Attach Compendium, Do Not Delete/merge, [id number] 04/17/2017 16:11:11 04/17/20 17 04/17/2017 urina lysis , dipst ick pH 7.0 Not Available In-Office Order Internal Use Only DO Not Attach Compendium DO Not Attach Compendium, Do Not Delete/merge, [id number] 04/17/2017 16:11:11 04/17/20 17 04/17/2017 urina lysis , dipst ick Blood Negati ve Not Available In-Office Order Internal Use Only DO Not Attach Compendium DO Not Attach Compendium, Do Not Delete/merge, 04/17/2017 16:11:11 04/17/20 17 04/17/2017 urina lysis , dipst ick Specific Harts 1.015 Not Available In-Off ice Order Internal Use Only DO Not Attach Compendium DO Not Attach Compendium, Do Not Delete/merge, 04/17/2017 16:11:11 04/17/20 17 04/17/2017 urina lysis , dipst ick Ketone Negati ve Not Available In-Office Order Internal Use Only DO Not Attach Compendium DO Not Attach Compendium, Do Not Delete/merge, 04/17/2017 16:11:11 04/17/20 17 04/17/2017 urina lysis , dipst ick Bilirubin Negati ve Not Available In-Office Order Internal Use Only DO Not Attach Compendium DO Not Attach Compendium, Do Not Delete/merge, 04/17/2017 16:11:11 04/17/20 17 04/17/2017 urina lysis , dipst ick Glucose Negati ve Not Available In-Office Order Internal Use Only DO Not Attach Compendium DO Not Attach Compendium, Do Not Delete/merge, 04/17/2017 16:11:11 04/17/20 17 04/17/2017 pregn nataliia test, urine HCG negati ve Not Available In-Office Order Internal Use Only DO Not Attach Compendium DO Not Attach Compendium, Do Not Delete/merge, 04/17/2017 15:40:12 04/17/20 17 04/20/2017 bacte rial vagin osis + vagin itis panel , vagin al chlamydia trachomatis, VANESSA Negati ve negati ve Not Available [facility] ([facility]) [address], [place], [address], 04/21/2017 16:13:54 04/17/20 17 04/20/2017 bacte rial vagin osis + vagin itis panel , vagin al neisseria gonorrhoeae, VANESSA Negati ve negati ve Not Available [facility] ([facility]) [address], [place], [address], 04/21/2017 16:13:54 04/17/20 17 04/21/2017 bacte rial vagin osis + vagin itis panel , vagin al atopobium vaginae Low - 0 score Not Available [facility] ([facility]) [address], [place], [address], 04/21/2017 16:13:54 04/17/20 17 04/21/2017 bacte rial vagin osis + vagin itis panel , vagin al bvab 2 Low - 0 score Not Available [facility] ([facility]) [address] [place] [address], [place], [address], 04/21/2017 16:13:54 04/17/20 17 04/21/2017 bacte rial vagin osis + vagin itis panel , vagin al megasphaera 1 Low - 0 score Calcu late total score by melissa harris the 3 indiv idual bacte rial vagin osis (BV) marke r score s toget her. Total score is inter prete d as follo ws: Total score 0-1: Indic ates the absen ce of BV. Total score 2: Indet ermin ate for BV. Addit ional clini courtney data shoul d be evalu ated to estab dionisio a diagn osis. Total score 3-6: Indic ates the prese nce of BV. This test was devel oped and its perfo rmanc e kristen cteri stics deter mined by [facility]. It has not been clear ed or appro abiodun by the Food and Drug Admin istra tion. The FDA has deter mined that such clear ance or appro darryl is not neces jackson. Not Available [facility] ([facility]) [address] [place], [address], 04/21/2017 16:13:54 04/17/20 17 04/21/2017 bacte rial vagin osis + vagin itis panel , vagin al dilan albicans, VANESSA Negati ve negati ve Not Available [facility] ([facility]) [address], [place], [address], 04/21/2017 16:13:54 04/17/20 17 04/21/2017 bacte rial vagin osis + vagin itis panel , vagin al dilan glabrata, VANESSA Negati ve negati ve This test was devel oped and its perfo rmanc e kristen cteri stics deter mined by [facility]. It has not been clear ed or appro abiodun by the Food and Drug Admin istra tion. The FDA has deter mined that such clear ance or appro darryl is not neces jackson. Not Available [facility] ([facility]) [address], [place], [address], 04/21/2017 16:13:54 04/17/20 17 04/21/2017 bacte rial vagin osis + vagin itis panel , vagin al trich vag by VANESSA Negati ve negati ve Not Available [facility] ([facility]) [address], [place], [address], 04/21/2017 16:13:54 04/17/20 17 04/22/2017 pap, IG + HPV, cervi courtney diagnosis: Commen t NEGAT RUPERTO FOR INTRA EPITH ELIAL LESIO N AND ARETHA CASTRO . CELLU REGINA BELLE ES ASSOC IATED WITH INFLA MMATI ON ARE PRESE NT. Not Available [facility] ([facility]) [address], [place], [address], 04/26/2017 06:06:11 04/17/20 17 04/22/2017 pap, IG + HPV, cervi courtney specimen adequacy: Radha taylor Satis facto ry for evalu ation . Endoc ervic al and/o r squam ous metap lasti c cells (endo cervi courtney compo nent) are prese nt. Not Available [facility] ([facility]) [address] [place], [address], 04/26/2017 06:06:11 04/17/20 17 04/22/2017 pap, IG + HPV, cervi courtney clinician provided ICD10: Radha taylor Z01.4 19 Not Available [facility] ([facility]) [address] [place], [address], 04/26/2017 06:06:11 04/17/20 17 04/22/2017 pap, IG + HPV, cervi courtney performed by: Radha Galeano on, Cytot mike mancera t (ASCP ) Not Available [facility] ([facility]) [address] [place], [address], 04/26/2017 06:06:11 04/17/20 17 04/22/2017 pap, IG + HPV, cervi courtney . . Not Available [facility] ([facility]) [address] [place], [address], 04/26/2017 06:06:11 04/17/2004/22/2017 pap, IG + HPV, cervi courtney note: Radha taylor The Pap smear is a scree shima test desig amelie to aid in the detec tion of adina ligna nt and malig nant condi tions of the uteri ne cervi x. It is not a diagn ostic proce dure and shoul d not be used as the sole means of detec ting cervi courtney cance r. Both false -posi tive and false -nega tive repor ts do occur . Not Available [facility] ([facility]) [address] [place], [address], 04/26/2017 06:06:11 04/17/20 17 04/22/2017 pap, IG + HPV, cervi courtney test methodology: Commen t This liqui d based ThinP rep(R ) pap test was madai kinsey with the use of an image guide nghia reinoso Not Available [facility] ([facility]) [address], [place], [address], 04/26/2017 06:06:11 04/17/20 17 04/25/2017 pap, IG + HPV, cervi courtney HPV aptima Negati ve negati ve This test detec ts fourt een high- risk HPV types (16/1 8/31/ 33/35 /39/4 5/ 51/52 /56/5 8/59/ 66/68 ) witho ut diffe renti ation . Not Available [facility] ([facility]) [address] [place], [address], 04/26/2017 06:06:11 08/11/19 19 08/12/2018 TSH + free T4, serum TSH 34.530 uIU/m L 0.450- 4.500 above high normal Not Available [facility] ([facility]) [address] [place], [address], 08/12/2018 06:19:51 08/11/1908/12/2018 TSH + free T4, serum T4,free(dire ct) 1.16 NG/dL 0.82-1 .77 Not Available [facility] ([facility]) [address] [place], [address], 08/12/2018 06:19:51 03/17/20 17 US, gallb ladde r No observ ation record ed. [facility] Not Available 2016 12:34:45 03/21/[address], abdom en + pelvi s, w/ contr ast No observ ation record ed. [facility] Not Available 2016 11:28:07 04/24/20 17 04/24/2017 US, abdom en No observ ation record ed. [facility] (Imaging) [address], [place], [address], 04/25/2017 14:45:41 05/22/20 17 05/21/2017 MAMMO , scree shima, bilat eral No observ ation record ed. [facility] (Imaging) [address], [place], [address], 05/22/2017 15:48:32 05/28/20 17 MAMMO , scree shima, bilat eral No observ ation record ed. [email or web address] Not Available 06/02 12:05:28 10/01/19 18 XR, chest , 2 view No observ ation record ed. [facility] Not Available 2017 15:44:36 05/04/20 18 XR, abdom en No observ ation record ed. [facility] Not Available 2017 15:51:33 05/04/[address] CT, abdom en + pelvi s, w/ contr ast No observ ation record ed. [facility] Not Available 2017 15:51:33 Result Notes None recorded. Problems Name Problem SNOMED Code Status Onset Date Resolution Date Notes Provider Name and Address Organization Details Recorded Time Essential hypertension 09868340 Active Carlos Grimaldo null, [place] - [facility] 6 15:27:55 Hypothyroidism 36582886 Active Charli Anderson MD Attn: Bina harris,[address] [facility], [place], [address] , [place] - [facility] 6 16:23:58 Allergy Active Carlos Gr[place] [facility] 6 15:27:55 Restless legs 30785701 Active [place] Gr[place] [facility] 6 15:27:55 Cellulitis of face 244855533 Active [place] [facility] 6 15:27:55 Female stress incontinence 89345898 Active [place] Gr[place] [facility] 6 15:32:24 Urinary incontinence 789745200 Active [place] Gr[place] [facility] 6 15:27:55 Chronic sciatica 673189361 Active Charli Anderson MD Attn: Bina harris,[address] [place], [address], [place] [facility] 6 15:38:31 Lower urinary tract infectious disease 2132542 Active Carlos Gr[place]do [place] [facility] 6 15:27:55 Mammography abnormal 398876367 Active Carlos Gr[place]do [place] [facility] 6 14:29:35 [place] 08727570 Active Charli Anderson MD Attn: Bina harris,[address] [place], [address], [facility] - [facility] 6 16:23:58 Hypertensive disorder 44959560 Active Charli Anderson MD Attn: Bina harris,[address] [place], [address], [facility] - [facility] 6 16:23:58 Morbid obesity 696391066 Active Charli Anderson MD Attn: Bina harris,[address] [place], [address], [place] - [facility] 6 15:38:31 Problem Notes None recorded. Procedures Surgical History Date Name Laterality Status Provider Name and Address Organization Details Recorded Time 04/01/20 16 Date of Last Pap Smear completed Kirstie Peres MA [facility] 04/01/2016 15:12:27 02/26/20 16 Most Recent Mammogram completed NOHEMY Belcher [facility] 04/17/2017 15:27:20 08/04/18 91 Orthopedic Surgery completed NOHEMY Belcher [facility] 01/27/2015 15:09:49 08/04/18 89 Appendectomy completed NOHEMY Belcher [facility] 01/27/2015 15:07:06 08/04/18 77 Anesth ear surgery completed NOHEMY Belcher [facility] 01/27/2015 15:07:56 Imaging Results Imaging Date Name Status LastModified by Organiz ation Details LastModified Time 03/17/2017 US, gallbladder completed [facility] Informati on not available 03/18/2017 12:34:45 03/21/2017 CT, abdomen + pelvis, w/ contrast completed [facility] Information not available 03/21/2017 11:28:07 04/24/2017 US, abdomen completed [facility] (Imaging) [address] [place] [address], [address], 04/25/2017 14:45:41 05/21/2017 MAMMO, screening, bilateral completed [facility] ([facility]) [address], [place], [address], 05/22/2017 15:48:32 05/28/2017 MAMMO, screening, bilateral completed [email or web address] Information not available 06/02/2017 12:05:28 10/01/2017 XR, chest, 2 view completed [facility] Information not available 10/01/2017 15:44:36 05/04/2018 XR, abdomen completed [facility] Information n ot available 05/04/2018 15:51:33 05/04/2018 CT, abdomen + pelvis, w/ contrast completed [facility] Information not available 05/04/2018 15:51:33 Procedure Notes None recorded. Medical Equipment None Reported. Allergies Allergen ID Allergen Name Allergen Category Reaction Reaction Severity Criticality Documentation Date Start Date Code Code System Note Provider Name and Address Organization Details Recorded Time 42993 lisinopri l medicatio n angioedem a severe Not available 11/23/2014 19942 RxNorm swell ing to legs Not Available Not Available Not Available 12153 morphine medicatio n vomiting severe Not available 04/01/2016 7052 RxNorm Not Available Not Available Not Available Medications Name Sig Start Date Stop Date Status Note LastModified by Organization Details LastModified Time cyclobenz aprine 10 mg tablet Take 1 tablet as needed by oral route at bedtime for 30 days. 2016 active Not Available Not Available Not Avai lable amoxicill in 500 mg capsule 10/30 completed Not Available Not Available Not Available carvedilo l 6.25 mg tablet TAKE 1 TABLET BY MOUTH TWICE A DAY 2018 active Not Available Not Available Not Avai lable prednison e 10 mg tablet 10/30 completed Not Available Not Available Not Available clindamyc in HCl 300 mg capsule 04/02 completed Not Available Not Available Not Available albuterol sulfate 2.5 mg/3 mL (0.083 %) solution for nebulizat ion Inhale 3 mL as needed by nebuliza tion route as directed for 1 day. 08/11 completed Not Available Not Available Not Available loperamid e 2 mg capsule 08/11 completed Not Available Not Available Not Available fluconazo le 150 mg tablet Take 1 tablet every day by oral route as directed for 1 day. 10/30 completed Not Available Not Available Not Available levothyro xine 300 mcg tablet TAKE ONE TABLET DAILY IN THE MORNING ON AN EMPTY STOMACH 2018 active Not Available Not Available Not Avai lable hydrocodo ne 5 mg-acetam inophen 325 mg tablet 10/30 completed Not Available Not Available Not Available Zithromax Z-Umberto 250 mg tablet TAKE 2 TABLETS (500 MG) BY ORAL ROUTE ONCE DAILY FOR 1 DAY THEN 1 TABLET (250 MG) BY ORAL ROUTE ONCE DAILY FOR 4 DAYS 2018 active Not Available Not Available Not Avai lable penicilli n V potassium 500 mg tablet Take 1 tablet every 8 hours by oral route for 10 days. 10/30 completed Not Available Not Available Not Available ciproflox acin 500 mg tablet 10/08 completed Not Available Not Available Not Available sulfameth oxazole 800 mg-trimet hoprim 160 mg tablet Take 1 tablet every 12 hours by oral route for 5 days. 10/30 completed Not Available Not Available Not Available tramadol 50 mg tablet 04/02 completed Not Available Not Available Not Available levothyro xine 25 mcg tablet Take 1 tablet every day by oral route as directed for 30 days. 2018 active Not Available Not Available Not Avai lable ketorolac 10 mg tablet 04/02 completed Not Available Not Available Not Available famotidin e 20 mg tablet 10/30 completed Not Available Not Available Not Available dicyclomi ne 20 mg tablet 08/11 completed Not Available Not Available Not Available amlodipin e 10 mg tablet Take 1 tablet every day by oral route. 10/30 completed Not Available Not Available Not Available levothyro xine 50 mcg tablet Take 1 tablet every day by oral route for 30 days. 10/30 completed Not Available Not Available Not Available cephalexi n 500 mg capsule 10/30 completed Not Available Not Available Not Available pantopraz ole 40 mg tablet,de layed release 08/11 completed Not Available Not Available Not Available promethaz ine 25 mg tablet 10/08 completed Not Available Not Available Not Available gabapenti n 300 mg capsule Take 1 capsule 3 times a day by oral route for 30 days. 10/30 completed Not Available Not Available Not Available omeprazol e 20 mg capsule,d elayed release Take 1 capsule every day by oral route before meals for 30 days. 08/11 completed Not Available Not Available Not Available monteluka st 10 mg tablet 10/30 completed Not Available Not Available Not Available levothyro xine 200 mcg tablet TAKE 1 TABLETS BY MOUTH EVERY MORNING BEFORE BREAKFAS T 10/30 completed Not Available Not Available Not Available hydrochlo rothiazid e 25 mg tablet TAKE ONE TABLET BY MOUTH EVERY DAY 10/30 completed Not Available Not Available Not Available ibuprofen 600 mg tablet 08/11 completed Not Available Not Available Not Available methylpre dnisolone 4 mg tablets in a dose pack 10/08 completed Not Available Not Available Not Available oxybutyni n chloride 5 mg tablet TAKE 1 TABLET BY MOUTH TWICE A DAY 2018 active Not Available Not Available Not Avai lable ondansetr on 4 mg disintegr ating tablet 08/11 completed Not Available Not Available Not Available fluticaso ne propionat e 50 mcg/actua tion nasal spray,elida pension 10/30 completed Not Available Not Available Not Available metoclopr amide 10 mg tablet Take 1 tablet twice a day by oral route as directed for 30 days. 08/11 completed Not Available Not Available Not Available Ventolin HFA 90 mcg/actua tion aerosol inhaler Inhale 2 puffs every 4 hours by inhalati on route as needed for 30 days. 2018 active Not Available Not Available Not Avai lable Vesicare 10 mg tablet Take 1 tablet every day by oral route. 10/30 completed Not Available Not Available Not Available Lyrica 75 mg capsule Take 1 capsule twice a day by oral route for 30 days. active Not Available Not Available No t Available Carly Allergy 180 mg tablet Take 1 tablet every day by oral route for 30 days. 10/30 completed Not Available Not Available Not Available Myrbetriq 25 mg tablet,ex tended release Take 1 tablet every day by oral route as directed for 14 days. 10/30 completed Samples given for two weeks for empirica l trial. Not Available Not Available Not Available Myrbetriq 50 mg tablet,ex tended release Take 1 tablet every day by oral route. 10/30 completed Please apply for Prior Authoriz ation. Not Available Not Available Not Available Fluarix Quad 1692-2523 (PF) 60 mcg (15 mcg x 4)/0.5 mL IM syringe 10/08 completed Not Available Not Available Not Available Vitals Date Recorded Body height Body mass index (BMI) Body weight Body temperature Oxygen saturation Oxygen saturation in Arterial blood by Pulse oximetry Heart rate Systolic blood pressure Diastolic blood pressure Provider Name and Address Organization Details Last Updated DateTime 8 153.035 cm 41.4 kg/m2 68767.7 7 g 97.5 [degF] 96 % 96 % 97 /min 164 mm[Hg] 100 mm[Hg] Severo Sanders [place] [facility] 8 16:52:49 Date Recorded Body height Body mass index (BMI) Body weight Body temperature Oxygen saturation Oxygen saturation in Arterial blood by Pulse oximetry Heart rate Systolic blood pressure Diastolic blood pressure Provider Name and Address Organization Details Last Updated DateTime 9 153.035 cm 43.2 kg/m2 978301. 53 g 97.9 [degF] 96 % 96 % 79 /min 154 mm[Hg] 104 mm[Hg] Severo Sanders [place] - [facility] 9 17:14:26 Date Recorded Body height Body mass index (BMI) Body weight Body temperature Oxygen saturation Oxygen saturation in Arterial blood by Pulse oximetry Heart rate Systolic blood pressure Diastolic blood pressure Provider Name and Address Organization Details Last Updated DateTime 7 153.035 cm 41.2 kg/m2 25687.4 6 g 98.2 [degF] 98 % 98 % 76 /min 144 mm[Hg] 90 mm[Hg] Severo Sanders MA [facility] 7 16:55:18 Date Recorded Body height Body mass index (BMI) Body weight Systolic blood pressure Diastolic blood pressure Provider Name and Address Organization Details Last Updated DateTime 04/17/2017 153.035 cm 41.1 kg/m2 31190.58 g 124 mm[Hg] 78 mm[Hg] Kirstie Peres [place] [facility] [facility] 15:35:25 Date Recorded Body height Body mass index (BMI) Body weight Body temperature Oxygen saturation Oxygen saturation in Arterial blood by Pulse oximetry Heart rate Systolic blood pressure Diastolic blood pressure Provider Name and Address Organization Details Last Updated DateTime 153.035 cm 41.2 kg/m2 94595.4 6 g 97.9 [degF] 100 % 100 % 71 /min 156 mm[Hg] 92 mm[Hg] Severo Sanders MA [facility] 7 17:05:55 Social History Question Answer Notes LastModified by Organizat ion Details LastModified Time Tobacco Smoking Status Never Smoker Severo Sanders MA null, [facility] 11/23/2014 14:53:47 Do You Have An Advance Directive? No Information not available 01/27/2015 What Is Your Level Of Alcohol Consumption? None Information not available 01/27/2015 Is Blood Transfusion Acceptable In An Emergency? Yes Information not available 01/27/2015 What Is Your Level Of Caffeine Consumption? Moderate Information not available 01/27/2015 How Much Tobacco Do You Chew? None Information not available 01/27/2015 Are You Currently Employed? Yes Information not available 01/27/2015 What Type Of Diet Are You Following? 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 With Others Information not available 01/27/2015 How Many Children Do You Have? 0 Information not available 01/27/2015 Performs Monthly Self-breast Exam? Yes Information no t available 01/27/2015 Do You Use Protection During Sex? Always Information not available 01/27/2015 What Is Your Relationship Status? Single Information not available 01/27/2015 Seat Belts Used Routinely Yes Information not available 01/27/2015 Are You Sexually Active? Yes Information not available 01/27/2015 General Stress Level Medium Information not available 01/27/2015 Do You Use Sunscreen Routinely? Yes Information not available 01/27/2015 Sex: Unknown Functional Status Question Answer Note LastModified by Organization D etails LastModified Time What is your exercise level? Moderate [email or web address] Information not available 01/27/2015 Mental Status None recorded. Family History Relationship Description Onset Age of this Age Resolved Age Notes LastModified by Organization Details LastModified Time Mother Congestive heart failure 68 stroke , diabet ic Not available 04/01/2016 15:13:53 Medical History Condition Response Coronary Artery Disease N Kidney Cyst N Blood Diseases N Hyperthyroidism N Blood Transfusion N MRSA N Blood disorders N Emphysema N Blood Clots N COPD N Depression N Pneumonia N Premature N Peripheral Arterial Disease N Edema N TIA N Headaches/Migraines N Anxiety Disorder N Obesity N Infertility N Polyps N Acid Reflux (GERD) N Hematuria N Stroke N Neck Injury N Polio N Hospital Admission other than N Neurologic Disorder N Other Sleep Disorders N Rheumatoid Arthritis N Fibromyalgia N Abdominal Aortic Aneurysm Repair N Kidney Disease N Heart Conditions N Heart Disease/Heart Problems N Hospitalizations N Brain Tumors N Acne N Skin Problems N Eating Disorder N Meningitis N Constipation N Tuberculosis N Cerebral Palsy N Myocardial Infarction N Asthma N Substance Abuse N Peripheral Vascular Disease N Vertigo N Sleep Disorder N Cirrhosis N Pulmonary Embolism N Chicken Pox N Hematologic Disease N Flomax Use Past or Present N Anxiety/Depression N Thyroid Disease N Colon Cancer N Lung Disease N Glaucoma N Developmental or Behavioral Disorders N Bipolar N Pacemaker N Diverticulitis/Diverticulosis N Orthopedic Problems N Anesthesia Complications N Orthotics N Head Injury/Concussion N Congenital Anomalies N Fam Bite N Chronic Kidney Disease N Endometriosis N Liver Disease N Schizophrenia N Dialysis N Speech Delay N Chronic Obstructive Pulmonary Disease N Parkinson's Disease N Thyroid Problems Y GI Problems N Developmental Delay N Anemia N Multiple Sclerosis N Immune System Disorder N Colon Polyps N Heart Attack (AL) N Diabetes N Cardiomyopathy N Blood Transfusions N Heart Problems/Murmur N Eye Trauma N Congestive Heart Failure (CHF) N Valvular Heart Disease N Hyperlipidemia N Double Vision N Abuse/Domestic Violence N Hepatitis B N Lupus N Epilepsy/Seizures N Reflux/GERD N Aneurysm N Heart Disease N Bronchitis N Pre-Eclampsia N Hypertension Y Heart Failure N Other Y Gout N High Blood Pressure N Atrial Fibrillation N Kidney Stones N Head Trauma/Injury N Congenital Heart Disease N Spine Problems N Gastrointestinal Disease N Lung Mass N Sinusitis N Obstructive Sleep Apnea N Muscle, Joint, or Bone Problems Y Autoimmune disease N Vision or Eye Problems N Arthritis N Blood Clot N Cancer N Seasonal allergies N Leg or Foot Ulcers N Raynaud's Disease N Aortic Aneurysm N Arrhythmia N Headaches N Heart Problems N Ambloypia N Ear or Hearing Problems N Hyperparathyroidism N Migraines N Artificial Joints N Kidney or Bladder Problems N NSAID Use N Encephalitis N PTSD N Ulcers N Prostate Hypertrophy N Bleeding Disorder N AIDS/HIV N Urinary Tract Infection N Back Problems N Allergies Y Atrial Flutter N GERD/Reflux N Hepatitis N Autism Spectrum Disorder (ASD) N Breast Cancer N Hernia N Hypothyroidism N Breast Problem N Genitourinary Disease N Deep Vein Thrombosis N Varicose Veins N Cystic Fibrosis N Hearing Loss N Developmental Problems N Carotid Disease N Vitamin D Deficiency N ADHD N Bladder or Kidney Problems N High Cholesterol N [place] N Valvular Abnormalities N Psychiatric/Mental Health Condition N Organ Transplant N Foot Deformity N Allergies/Hayfever N Dyslipidemia N Hyponatremia N Diabetic Eye Disease N Osteoporosis/Osteopenia N Back Pain N Proteinuria N Mental Illness N Neurological Problems N Ovarian Cancer N Bedwetting N Seizures/Epilepsy N Kidney Failure N Ocular trauma N Diverticulitis N Dementia N Sleep Apnea N Mental Problems N Warfarin Management N Osteoporosis N Gynecological History Statement/Question Response Flow Heavy Date of LMP 07/24/2018 STIs/STDs N HPV Vaccine N Duration of Flow (days) 4 Most Recent Mammogram 02/26/2016 Age at Menarche 11 Current Control Method None Frequency of Cycle (Q days) 28 Sexually Active? N Menses Monthly Y Date of Last Pap Smear 04/01/2016 Sexual Problems? N LMP Approximate Desired Control Method None Obstetrics History GPAL:G 0 P 0 0 0 0 Type Value Multiple Births 0 Full Term 0 Induced 0 Spontaneous 0 Premature 0 Living 0 Ectopics 0 Total 0 Past Encounters Encounter ID Performer Location Encounter Start Date Encounter Closed Date Diagnosis/Indication Diagnosis SNOMED-CT Code Diagnosis ICD10 Code Diagnosis Note [id number] [facility] (Adult Med) [address] [place] [address] [id number] 0 11/23/2014 14:36:23 11/23/2014 15:10:23 Essential hypertension 19689360 Hypothyroidism 98489157 Allergy [id number] [facility] (Adult Med) [address] [place] [address] [id number] 0 12/30/2014 16:12:50 12/30/2014 16:54:22 Essential hypertension 07151042 Hypothyroidism 48809267 Restless legs 40932178 Cellulitis of face 774581773 [id number] [facility] ([facility]OE [facility]BBLER) [address] [place] [address] 66948-758 0 01/27/2015 14:27:08 01/27/2015 16:05:56 Gynecologic examination 43299609 Screening mammography 93553766 Female str ess incontinence 88900318 Samples of Mybetriq given 25mg daily. [id number] ZOE Waldron (SHOE COBBLER) [address] [place] [address] [id number] 0 03/01/2015 10:59:59 03/01/2015 13:11:48 Urinary incontinence 400711654 44 year old female with urinary urgency and occasional incontinen ce; empiricall y started on Myrbetriq 25 mg daily presenting for follow up. Patient states she had positive results but thought she would like to go up in dose if possible. Will increase to 50mg daily (samples given) will apply for P.A. with insurance. [id number] [facility] (Adult Med) [address] [place] [address] [id number] 0 04/25/2015 16:37:11 04/26/2015 16:37:06 Essential hypertension 60056689 Hypothyroidism 69526277 Restless legs 52699018 Chronic sciatica 390141435 [id number] MD [facility] Mendiola (Adult Med) [address] [place] [address] 01314-081 0 10/30/2015 15:06:23 10/30/2015 18:19:28 Lower urinary tract infectious disease 1526141 N39.0 Essential hypertension 34851621 I10 Hypothyroidism 35175357 E03.9 Chronic sciatica 0478167 01 M54.30 [id number] Imelda MartinMaverick is [facility] (Adult Med) [address] [place] [address] 17018-033 0 12/20/2015 15:32:03 12/20/2015 16:01:32 Hypothyroidism 00560023 E03.9 Essential hypertension 73210221 I10 Female str ess incontinence 69013190 N39.3 Chronic sciatica 5056591 01 M54.30 Restless legs 41308389 G 25.81 [id number] NOHEMY Belcher (SHOE COBBLER) [address] [place] [address] 63204-926 0 12/27/2015 14:20:03 12/29/2015 12:05:11 Gynecologic examination 54295723 Z01.419 Z11.51 On menses will delay pap for now. Screening mammography 24 577136 Z12.31 Female str ess incontinence 24401212 N39.3 Samples of Mybetriq given 25mg daily. [id number] Crissyrich Moreland is [facility] (Adult Med) [address] [place] [address] [id number] 0 03/20/2016 15:47:23 03/20/2016 16:45:22 Etta [id number] M62.831 Hypertensive disorder 38 376518 I10 Hypothyroidism 09814310 E03.9 Morbid obesity 786113957 E66.01 [id number] Carlos Grimaldo [facility] ([facility]OE COBBLER) [address] [place] [address] 23868-752 0 04/01/2016 14:43:10 04/02/2016 11:03:01 Gynecologic examination 35821248 Z01.419 Z11.51 On menses will delay pap for now. [id number] Imelda MartinMaverick is [facility] (Adult Med) [address] [place] [address] [id number] 0 04/03/2016 14:47:42 04/03/2016 15:39:42 Morbid obesity 222647062 E66.01 Chronic sciatica 8462777 01 M54.30 Family his tory of diabetes mellitus 217814878 Z83.3 [id number] MD [facility] Mendiola (Adult Med) [address] [place] [address] 94588-418 0 10/30/2016 10:31:13 10/30/2016 12:04:26 Morbid obesity 474749642 E66.01 Exercise, diet and lose weight, she agreed. Restless legs 03074943 G 25.81 Essential hypertension 63708791 I10 Female str ess incontinence 23607638 N39.3 Hypothyroidism 99124199 E03.9 [id number] MD [facility] Mendiola (Adult Med) [address] [place] [address] [id number] 0 04/02/2017 15:49:32 04/02/2017 17:22:03 Acid reflux 508726670 K21.9 Female str ess incontinence 42645546 N39.3 [id number] MD [facility] Smith (SHOE COBBLER) [address] [place] [address] [id number] 0 04/17/2017 14:34:06 04/17/2017 16:31:44 Gynecologic examination 68286694 Z01.419 Counseled about WWE and kegel excercises . Refer to hand out Screening mammography 24 635848 Z12.31 Body mass index 40+ - severely obese 985540334 Z68.41 Counseled About weight loss, diet and excercise. She refused water well driller consult Venereal d isease screening 972033137 Z11.3 REFUSED BLOOD WORK FOR IT Family rashaad nning surveillance 273450252 Z30.09 REFUSED CONTRACEPT ION. SAFE SEX COUNSELING DONE [id number] MD [facility] Mendiola (Adult Med) [address] [place] [address] [id number] 0 06/11/2017 15:19:52 06/11/2017 17:48:16 Nausea and vomiting 19472747 R11.2 Possible IRS. will make GI referraL. Essential hypertension 04277304 I10 SHE HAS NOT TAKEN HER BP MEDICATION YET TODAY. SHE HAS ENOUGH MEDICATION . Hypothyroidism 92986774 E03.9 ON LEVOTHYROX INE. SHE HAS enough medication . Morbid obesity 401378114 E66.01 SHE HAS LOST 30 POUNDS FROM 230 DOWN TO 212 SINCE MONTH AGO DUT TO UNABLE TO HAVE ENOUGH INTAKE. [id number] MD [facility] Mendiola (Adult Med) [address] [place] [address], [place] [address] 10/08/2017 16:26:04 10/08/2017 17:21:55 Acute bronchitis 84380311 J20.9 Go to ER any time for any concern , she understood and agreed. Her luns sound more audible and no wheezing after finishing her albuterol nebulizer treatment, she is much easier to breathe. Her chest x-ray 10-01-2017 was unremarkab le, patient is informed in this office today 09-10-2017 . Hypothyroidism 17623110 E03.9 ON LEVOTHYROX INE. SHE HAS enough medication . [id number] Charli Anderson MD [facility] (Adult Med) [address] [place] [address] 08/11/2018 16:42:23 08/12/2018 09:55:25 Acute bronchitis 37349205 J20.9 Go to ER any time for any concern , she understood and agreed. Her luns sound more audible and no wheezing after finishing her albuterol nebulizer treatment, she is much easier to breathe. Her chest x-ray 10-01-2017 was unremarkab le, patient is informed in this office today 09-10-2017 . Hypothyroidism 79953535 E03.9 ON LEVOTHYROX INE. SHE HAS enough medication . Health Concerns Section Related Observation LastModified by Organization Detai ls LastModified Time None Recorded Concern Status LastModified by Organization Details LastModified Time None Recorded Advance Directives Directive N: Payers Encounter Date Sequence Insurance Name Policy Number Policy Bowers Covered Member ID Bowers Member ID Guarantor Name 04/02/2017 1 [place] [employer] [employer] Kassy Gunter [id number] Kassy Gunter 04/17/2017 1 [facility] (MEDICAID HMO) [id number] Kassy Gunter [id number] Kassy Gunter 06/11/2017 1 [facility] (MEDICAID HMO) [id number] Kassy Gunter [id number] Kassy Gunter 10/08/2017 1 [facility] (MEDICAID HMO) [id number] Kassy Gunter [id number] Kassy Gunter 08/11/2018 1 [facility] [id number] Kassy Gunter [id number] Kassy Gunter Notes Date Note Type Note Provider Name and Address Organization Details Recorded Time 04/02/2017 text/html ER visit for the hiatal hernia, pantoprazole caused constipation, and dicyclomine did not do nothing, but ondansetron 4 mg helps some.Allergic to lisinopril and morphine,. Charli Anderson MD Attn: [address] [place], [address], [facility] 04/02/2017 17:20:56 04/17/2017 text/html Annual GYNReport ed bypatient.History:n o gynecologic complaints Menstrual cycle:Normal menses Urinary symptoms:No hematuria; No incontinence Vulva:No genital lesion Vagina:Normal vaginal discharge Breast:No breast pain; No breast lump; No nipple discharge Sexual complaints:No sexual complaints; No pain during intercourse; Normal libido Menopausal Symptoms:No menopausal symptoms; Normal vaginal lubrication Psychological symptoms:No depression; No anxiety; No PMDD Preventive measures:Encourage self breast examination; Encourage regular exercise; Encourage no tobacco use; Encourage regular mammograms starting age 40; Needs to schedule mammogram; also counseled about calcium intake and advised to start over the counter calcium treatment. Rosalva Sierra MD Attn: Accounting,[address] [place], [address], [facility] 04/17/2017 16:15:30 06/11/2017 text/html Went to [facility], recently for N/V after food , she tried to stay away from spicy/ greasy food but not much relief, oxybutynin helps for her bladder, on omeprazole , levothyroxine and carvedilol, no diarrhea but has abdominal pain sometimes., allergic to morphine and lisinopril. Charli Anderson MD Attn: [address],[address] [place], [address], [facility] 06/11/2017 17:26:25 10/08/2017 text/html Recently went to Er twice for the acute bronchitis and wheezing, lives with a smoker, second hand smoker, allergic to morphine and lisinopril, just finished oral steroid , still on ventolin. Still coughes at night. She ran out her levothyroxine she has not taken her carvedilol for her hypertension yet today. Charli Anderson MD Attn: Accounting,[address] [facility], [place], [address], [facility] 10/08/2017 17:15:47 08/11/2018 text/html Chest cold , productive cough for one one week, second -hand smoker, allergic to morphine and lisinopril. Charli Anderson MD Attn: Accounting,[address] [facility], [place], [address], [facility] 08/11/2018 17:27:00 OBGyn Episode No OBEpisode recorded.
--- OUTSIDE RECORDS SUMMARY | 2024-10-12 11:17 | XMS_ITS | Clinical Summary ---
Author Organization [facility] Address [facility] [place] [address] Care Team Providers Care Vest Finisher Name Role Phone Shilpa Grady MD Primary Care Provider [phone] Allergies Active Allergy Reactions Criticality Noted Date Comments Lisinopril Unknown 05/21/2023 Leg swelling Morphine Nausea and Vomiting Medium 05/21/2023 Medications carvedilol (COREG) 25 MG tablet 3 Active levothyroxine (SYNTHROID) 300 MCG tablet Take 1 tablet (300 mcg total) by mouth every morning. 3 Active levothyroxine (SYNTHROID) 50 MCG tablet Take 1 tablet (50 mcg total) by mouth every morning. 3 Active docusate sodium (COLACE) 100 MG capsule Take 1 capsule (100 mg total) by mouth daily. 3 Active albuterol (PROVENTIL) (2.5 MG/3ML) 0.083% nebulizer solution USE 3 ML VIA NEBULIZER FOUR TIMES DAILY NEEDED 4 Active rosuvastatin (CRESTOR) 20 MG tablet Take 0.5 tablets (10 mg total) by mouth daily. 4 07/21/20 25 Active Active Problems Problem Noted Date Diagnosed Date Morbid obesity 09/16/2024 Benign hypertensive heart disease without heart failure 07/21/2024 Mixed hyperlipidemia 07/21/2024 Secondary lymphedema 05/21/2023 Hypertensive heart disease w ith heart failure ([facility]CC) 04/17/2020 Bilateral lower extremity edema 02/07/2020 LUJAN (dyspnea on exertion) 02/07/2020 Unspecified urinary incontinence 06/03/2016 Essential hypertension 01/17/2015 Overview (09/16/2024): Essential hypertension Encounters Date Type Department Care Team Description 09/16/2024 9:00 AM ELECTRICAL CHECKOUT MECHANIC Office Visit [facility] [facility], [address] [address] Duane Medina MD Follow Up 09/16/2024 Orders Only [facility] [facility], [facility] [address] [place] [address] Duane Medina MD 09/16/2024 Orders Only [facility] [facility], [address] [place] [address] Duane Medina MD 09/16/2024 Travel 08/24/2024 Discharge [facility] [place] [address] [place] [address] Licha Milian A, OT from Last 3 Months Immunizations Name Administration Dates Next Due Influenza (Generic) 06/16/2021 Influenza Adult (Generic) 05/05/2023,07/19/2022 PFIZER COVID-19 (ORIGINAL FO RMULATION, PURPLE CAP) mRNA, LNP-S, PF, 30 MCG/0.3 ML DOSE 08/01/2021 Social History Tobacco Use Types Packs/Day Years Used Date Smoking Tobacco: Never Alcohol Use Standard Drinks/Week Comments Never 0 (1 standard drink = 0.6 oz pur e alcohol) Comments Unknown Sex and Gender Information Value Date Recorded Sex Assigned at Female 09/16/2024 8:20 AM ELECTRICAL CHECKOUT MECHANIC Legal Sex Female 1:14 PM CDT Gender Identity Not on file Sexual Orientation Not on file Last Filed Vital Signs Vital Sign Reading Time Taken Comments Blood Pressure 170/100 09/16/2024 9:01 AM ELECTRICAL CHECKOUT MECHANIC Pulse 86 09/16/2024 9:01 AM ELECTRICAL CHECKOUT MECHANIC Temperature - - Respiratory Rate - - Oxygen Saturation - - Inhaled Oxygen Concentration - - Weight 118 kg (260 lb 3.2 oz) 09/16/2024 9:01 AM ELECTRICAL CHECKOUT MECHANIC Height 154.9 cm (5' 1 ) 09/16/2024 9:01 AM ELECTRICAL CHECKOUT MECHANIC Body Mass Index 49.16 09/16/2024 9:01 AM ELECTRICAL CHECKOUT MECHANIC Plan of Treatment Upcoming Encounters Date Type Department Care Team (Late st Contact Info) Description 10/26/2024 1:00 PM CDT Appointment [facility] [place] [address] Duane Medina MD [address] [facility]. [address] [place], [place] [address] Breanna White, DPT [address] [place] [address] 03/17/2025 9:30 AM CDT Office Visit [facility] [facility], [address] [place], [place] [address] Duane Medina MD Three [facility]. [facility] [address] [place], [place] [address] Health Maintenance Due Date Last Done Comments Cervical Cancer Screening Pa p Smear (Age 30 to 64) Every 3 Years 1969 Colorectal Cancer Screening Colonoscopy (10 Years) 1969 Annual Physical 1972 Pneumococcal Vaccine: Pediatrics (0 to 5 Years) and At-Risk Patients (6 to 64 Years) (1 of 2 - PCV) 11/14/1975 Hepatitis C 11/14/1987 DTaP, Tdap and Td Vaccines ( 1 - Tdap) 1988 Hepatitis B Vaccines (1 of 3 - 19+ 3-dose series) 1988 Cervical Cancer Screening Pa p with HPV Testing (Age 30 to 64) Every 5 Years 11/14/1999 Cervical Cancer Screening wi th HPV 11/14/1999 Mammogram Screening 2009 Zoster Vaccines (1 of 2) 11/14/2019 COVID-19 Vaccine (2 - 2023-2 5 season) 2024 08/01/2021 Influenza Adult (#1) 2024 05/05/2023, 07/19/2022, 06/16/2021 Meningococcal B Vaccine Aged Out No l onger eligible based on patient's age to complete this topic Meningococcal Vaccine Aged Out No jadyn tanesha eligible based on patient's age to complete this topic RSV Immunizations Under 20 Months Aged Out No longer eligible b ased on patient's age to complete this topic Insurance Care Teams Vest Finisher Relationship Specialty Start Date End Date Shilpa Grady MD [address] [place] [address] [place] [address] PCP - General FAMILY PRACTICE 07/02/23
--- OUTSIDE RECORDS SUMMARY | 2024-10-12 11:17 | XMS_ITS | Data Portability ---
Author Organization [facility], Main Office Address [address] [place] [address] Assessment No assessment recorded. 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 Not available Not available Any 2024 10:15A Terry Jessica, MARKING MACHINE TENDER Not available Not available Not available Lab lipid panel, serum 2023 [facility] (Lab), [address] [place], [address], 07/13/2024 08:22:50 CMP, serum or plasma 2023 [facility] (Lab), [address] [place], [address], 07/13/2024 08:22:50 CBC w/ auto diff 2023 024 [facility] (Lab), [address] [place], [address], 07/13/2024 08:22:50 glycohemo globin, total, blood 2023 024 [facility] (Lab), [address] [place], [address], 07/13/2024 08:22:49 noninvasi ve colorecta l cancer DNA + occult blood screening , QL, stool 2023 024 [facility] (Cologuard Orders Only), [address], [address], [place], [address], 08/21/2024 00:51:04 hepatitis C virus Ab, serum 2023 [facility] (Lab), [address] [place], [address], 07/13/2024 08:22:50 TSH, serum or plasma 2023 [facility] (Lab), [address] [place], [address], 07/13/2024 08:22:50 T4, free, serum 2023 [facility] (Lab), [address] [place], [address], 07/13/2024 08:22:50 vitamin B12 + folate, serum or blood 2023 [facility] (Lab), [address] [place], [address], 07/13/2024 08:22:50 Referral endocrino logy referral - Please call patient to schedule an appointme nt. Thank you. 2024 025 MICHELE Daily MD, [address], [place], [address], 09/24/2024 11:19:54 gastroent erologist referral 2024 025 2 Enrico López MD, [address] [place], [address], 09/01/2024 11:40:47 wound care referral - Please call patient to schedule. [address] [facility], [address] [facility], [address], [place], [address], 09/01/2024 08:14:42 Procedures colonosco py procedure (PROC) [address] [facility] [address] [facility] (Pre-Screen), [address] [place], [address], 10/07/2024 15:09:51 upper endoscopy procedure (EGD) (PROC) [address] [facility] [address] [facility] (Pre-Screen), [address] [place], [address], 10/07/2024 15:10:32 Surgeries None recorded. Imaging MAMMO, screening , digital, bilateral - Please call patient to schedule. 2023 [email or web address] [facility] (One Call Scheduling), [address] [place], [address], 06/15/2024 09:50:39 Medication Orders Golytely 236 gram-22.7 4 gram-6.74 gram-5.86 gram oral solution 2024 [facility], [address] [place] [address], [id number], 10/06/2024 13:51:38 albuterol sulfate HFA 90 mcg/actua tion aerosol inhaler 2023 [facility], [address] [place] [address], [id number], 05/04/2024 11:46:45 albuterol sulfate 2.5 mg/3 mL (0.083 %) solution for nebulizat ion 2023 024 [facility], [address] [place] [address], [id number], 05/04/2024 11:46:45 mupirocin 2 % topical ointment [address] [facility], [address] [place] [address], [id number], 08/31/2024 11:49:28 carvedilo l 25 mg tablet 2023 [facility], [address] [place] [address], [id number], 05/04/2024 11:46:43 omeprazol e 40 mg capsule,d elayed release [address], [address] [place] [address], [id number], 08/31/2024 11:49:28 docusate sodium 100 mg capsule [address], [address] [place] [address], [id number], 08/31/2024 11:49:28 levothyro xine 300 mcg tablet 2023 [facility], [address] [place] [address], [id number], 05/04/2024 11:46:46 levothyro xine 50 mcg tablet 2023 [facility], [address] [place] [address], [id number], 05/04/2024 11:46:42 Patient TargetsNo targets recorded. Patient Instructions Encounter Date Encounter Id Patient Instructions Last Modified By Organization Details Last Modified Time 05/04/2024 [id number] Follow up in 3 months Prescriptions sent to pharmacy Obtain labs Tests: Referral: Wound care-lymphedema Recommend: Tetanus vaccine Shingles vaccine Not available 05/04/2024 11:46:19 08/31/2024 [id number] Follow up in 4 months Tests: Complete thyroid ultrasound Referral: Dr. [id number] [facility] endocrinology-elev ated TSH Recommend: Pneumococcal vaccine Tetanus vaccine Shingles vaccine Not available 08/31/2024 11:59:50 10/06/2024 [id number] VIN [email or web address] Not available 12/2024 13:51:00 PT IS COLOGUARD POSITIVE . R/O PUD/ GASTRITIS /POLYP /CA . RECOMMEND EGD /COLON RISKS BENEFITS AND COMPLICATIONS WERE EXPLAINED TO PT . ( BLEEDING , PERFORATION , INFECTION , ) PT VERBALIZES UNDERSTANDING AND IS WILLING TO PROCEDE . [email or web address] Not available 10/06/2024 13:51:12 Reason for Referral Please call patient to sched ule. Referring Physician: Puja Jessica, Internal Medicine, Encounter Date: 05/04/2024 [facility] Measuring Optician Referral for Colorectal cancer detected by DNA-based stool screening Referring Physician: Puja Jessica, Internal Medicine, Encounter Date: 08/31/2024 Endocrinology Referral for H ypothyroidism Please call patient to schedule an appointment. Thank you. Referring Physician: Puja Jessica, Internal Medicine, Encounter Date: 08/31/2024 Results Created Date Observation Date Name Description Value Unit Range Abnormal Flag Note LastModifiedBy Organization Detail LastModifiedTime 08/16/1908/16/2024 COLOG UARD cologuard result reportable POSITI VE negati ve abnormal POSIT RUPERTO TEST RESUL T. A posit ruperto Colog uard resul t shoul d be follo wed with a colon oscop y or visua l exami natio n of the colon . The piero l value (refe rence range ) for this assay is negat ruperto. TEST DESCR IPTIO N: Ovett site algor ithmi c jose sis of stool DNA-b iomar kers with hemog lobin immun oassa y. Quant itati ve value s of indiv idual bioma rkers are not repor table and are not assoc iated with indiv idual bioma rker resul t refer ence range s. Colog uard is inten ded for color ectal cance r scree shima of adult s of eithe r sex, 45 years or older , who are at [facility] for color ectal cance r (CRC) . Colog uard has been appro abiodun for use by the [place]. FDA. The perfo rmanc e of Colog uard was estab lishe d in a cross secti onal study of [facility] adult s aged 50-84 . Colog uard perfo rmanc e in patie nts ages 45 to 49 years was estim ated by sub-g erichp jose sis of near- age group s. Colon oscop ies perfo rmed for a posit ruperto resul t may find as the most clini lazaro signi fican t lesio n: color ectal cance r [4.0% ], advan shola adeno ma (incl uding sessi le harley jorge polyp s great er than or equal to 1cm diame ter) [20%] or non- advan shola adeno ma [31%] ; or no color ectal neopl neel [45%] . These estim ates are deriv ed from a prosp ectiv e cross -sect ional scree shima study of 0 indiv idual s at [facility] for color ectal cance r who were scree amelie with both Colog uard and colon oscop y. (Ximena Black et al, N Engl J Med 2014; 370(1 4):12 86-12 97.) Colog uard may produ ce a false negat ruperto or false posit ruperto resul t (no color ectal cance r or preca ncero us polyp prese nt at colon oscop y follo w up). A negat ruperto Colog uard test resul t does not guara ntee the absen ce of CRC or advan shola adeno ma (pre- cance r). The curre nt Colog uard scree shima inter darryl is every 3 years . (Amer ican Cance r Socie ty and U.S. Multi -Soci ety Task Force ). Colog uard perfo rmanc e data in a 0 patie nt pivot al study using colon oscop y as the refer ence metho d can be [facility]es [facility] loc[facility] ion: www.e xactl abs.c om/re sults . Addit ional descr iptio n of the Colog uard test proce ss, warni ngs and preca ution s can be found at www.jacquie amaya.jacquie om. Not Available [facility] (Cologuard Orders Only) [address], [place], [address], 08/21/2024 00:51:04 08/20/19 24 08/20/2023 XR, chest No observ ation record ed. [email or web address] [facility] [address], [place], [address], 08/21/2023 14:29:21 Result Notes None recorded. Problems Name Problem SNOMED Code Status Onset Date Resolution Date Notes Provider Name and Address Organization Details Recorded Time Dysuria 12189327 Active 2022 Not Available [facility] 3 22:15:53 Blood in urine 62407790 Active 2022 Not Available [facility] 3 22:15:53 Cellulitis of lower limb 815163681 Active 2022 Not Available [facility] 3 22:15:53 Eczema 25131487 Active 2022 Not Available [facility] 3 22:15:53 Morbid obesity 749326959 Active 2022 Puja Jessica APRN [address], [address], [place], [address] , [facility] 4 11:24:18 Edema of lower extremity 420305395 Active 2022 Puja Jessica APRN [address], [address], [place], [address] , [facility] 4 11:23:57 Weight gain 1422077 Active 2022 Not Available [facility] 3 22:15:53 Recurrent cellulitis 413083779 Active 2022 Puja Jessica APRN [address], [address], [place], [address] , [facility] 4 11:24:35 Essential hypertensi on 22569275 Active 2022 Puja Jessica APRN [address], [address], [place], [address] , [facility] 4 11:24:04 Peripheral vascular disease 527976773 Active 2022 Puja Jessica APRN [address], [address], [place], [address] , [facility] 4 11:24:40 Dyspnea on exertion 08113811 Active 2022 ULISES Alvarez [address], [address], [place], [address] , [facility] 3 10:23:06 Lymphedema of bilateral lower limbs 2688790429002 9101 Active 2022 Puja Jessica APRN [address], [address], [place], [address] , [facility] 4 11:24:45 Vaginitis 85175186 Active 2022 Shilpa Grady MD [address], [address], [place], [address] , [facility] 3 10:39:27 Eruption 906242270 Active 2022 Shilpa Grady MD [address], [address], [place], [address] , [facility] 3 10:42:27 Congenital anomaly of the kidney 41369399 Active 2022 Puja Jessica APRN [address], [address], [place], [address] , [facility] 4 11:23:47 Acute urinary tract infection 246097224 Active 2022 VERA Benitez [address], [address], [place], [address] , [facility] 3 17:27:32 Cobalamin deficiency 304300735 Active 2022 Puja Jessica APRN [address], [address], [place], [address] , [facility] 4 11:23:41 Cramp in lower limb 288068329 Active 2022 Shilpa Grady MD [address], [address], [place], [address] , [facility] 3 09:59:32 Bronchitis 31145690 Active 2023 Shilpa Grady MD [address], [address], [place], [address] , [facility] 4 09:51:38 Gastroesop hageal reflux disease 731824272 Active 2023 Puja Jessica APRN [address], [address], [place], [address] , [facility] 4 11:43:22 Thyroid stimulatin g hormone level above reference range 582189245 Active 2023 Puja Jessica APRN [address], [address], [place], [address] , [facility] 4 14:19:32 Lymphedema 093580741 Active Puja Jessica APRN [address], [address], [place], [address] , [facility] 5 21:15:08 Colorectal cancer detected by DNA-based stool screening 957997391 Active 2024 Puja Jessica APRN [address], [address], [place], [address] , [facility] 5 09:20:03 Paronychia of toe of left foot 9440516493378 9100 Active 2021 Not Available [facility] 3 22:15:52 Dry skin 63491552 Active 2021 Not Available [facility] 3 22:15:53 Metabolic syndrome X 050182036 Active 2019 Puja Jessica APRN [address] [facility] [address], [place], [address] , [facility] 4 11:24:23 Dyslipidem ia 138872921 Active 2021 Puja Jessica APRN [address] [facility], [address], [address] , [facility] 4 11:23:53 Hypertensi ve disorder 26473160 Active 2018 Not Available [facility] 3 22:15:53 Impaired fasting glycemia 620582772 Active 2021 Not Available [facility] 3 22:15:53 Ingrowing toenail 530098628 Active Not Available [facility] 3 22:15:53 Hypothyroi dism 03851732 Active 2018 Puja Jesscia APRN [address], [address] [address], [place], [address] , [facility] 4 11:24:16 Vitamin B12 deficiency (non anemic) 49844032 Active 2021 Puja Jessica APRN [address], [address] [place] [address], [place], [address] , [facility] 4 11:24:33 Prediabete s 780324718 Active 2021 Puja Jessica APRN [address], [address] [place] [address], [place], [address] , [facility] 4 11:24:27 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 Procedures Surgical History Date Name Laterality Status Provider Name and Address Organization Details Recorded Time Ear completed NOHEMY [facility] 05/04/2024 11:20:11 Ankle Surgery completed NOHEMY [facility] 05/04/2024 11:20:19 Appendectomy completed NOHEMY [facility] 05/04/2024 11:20:27 Imaging Results Imaging Date Name Status LastModified by Organiz ation Details LastModified Time 08/20/2023 XR, chest completed [email or web address] [facility] [address], [place], [address], 08/21/2023 14:29:21 Procedure Notes None recorded. Medical Equipment None Reported. Allergies Allergen ID Allergen Name Allergen Category Reaction Reaction Severity Criticality Documentation Date Start Date Code Code System Note Provider Name and Address Organization Details Recorded Time 6554 morphine medicatio n Not available Not available Not available 10/02/2022 7052 RxNorm Other react ions and sever ities : 'Adve rse react ion to subst ance' . Puja Jessica APRN [address], [address], [place], [address], [facility] 4 09:03:28 6555 lisinopri l medicatio n Not available Not available Not available 10/02/2022 50106 RxNorm Other react ions and sever ities : 'Adve rse react ion to subst ance' . Puja Jessica APRN [address], [address], [place], [address], [facility] 4 09:03:28 13989 Ozempic medicatio n Not available Not available Not available 12/16/2023 07 RxNorm went to ER for GI s/e Shilpa Grady MD [address], [address], [place], [address], [facility] 4 09:43:25 Medications Name Sig Start Date Stop Date Status Note LastModified by Organization Details LastModified Time amoxicillin 500 mg capsule Take 1 capsule every 8 hours by oral route for 10 days. active Not Available Not Available No t Available neomycin-po lymyxin-hyd rocort 3.5 mg/mL-10,00 0 unit/mL-1 % ear solution INSTILL 4 DROPS INTO AFFECTED EAR(S) BY OTIC ROUTE 3 TIMES PER DAY active Not Available Not Available No t Available carvedilol 25 mg tablet Take 1 tablet twice a day by oral route for 90 days. 2023 active Not Available Not Available Not Avai lable carvedilol 6.25 mg tablet 04/22 completed Not Available Not Available Not Available doxycycline hyclate 100 mg capsule TAKE 1 CAPSULE BY MOUTH TWICE DAILY FOR 10 DAYS 05/05 completed Not Available Not Available Not Available carvedilol 12.5 mg tablet TAKE 1 TABLET BY MOUTH TWICE A DAY 10/21 completed Not Available Not Available Not Available clindamycin HCl 300 mg capsule 04/22 completed Not Available Not Available Not Available albuterol sulfate 2.5 mg/3 mL (0.083 %) solution for nebulizatio n Inhale 3 mL 4 times a day by nebulizat ion route as needed. 2023 active Not Available Not Available Not Avai labnegro ammonium lactate 12 % lotion Apply to affected area daily 12/15 completed Not Available Not Available Not Available azithromyci n 250 mg tablet 04/22 completed Not Available Not Available Not Available ibuprofen 800 mg tablet TAKE 1 TABLET BY MOUTH THREE TIMES DAILY NEEDED FOR PAIN FOR 7 DAYS. 12/15 completed Not Available Not Available Not Available fluconazole 150 mg tablet TAKE 1 TABLET BY MOUTH EVERY DAY FOR 1 DOSE 12/15 completed Not Available Not Available Not Available benzonatate 200 mg capsule Take 1 capsule 3 times a day by oral route as needed for 10 days. 05/01 completed Not Available Not Available Not Available levothyroxi ne 300 mcg tablet TAKE 1 TABLET BY MOUTH EVERY DAY IN THE MORNING with 50 mcg tablet 2023 active Not Available Not Available Not Avai lable valacyclovi r 1 gram tablet TAKE 1 TABLET BY MOUTH EVERY 12 HOURS FOR 7 DAYS 06/17 completed Not Available Not Available Not Available cephalexin 250 mg capsule TAKE 1 CAPSULE BY MOUTH 4 TIMES DAILY FOR 7 DAYS 08/31 completed Not Available Not Available Not Available Compro 25 mg rectal suppository 12/15 completed Not Available Not Available Not Available phenazopyri dine 200 mg tablet TAKE 1 TABLET BY MOUTH THREE TIMES DAILY NEEDED 06/17 completed Not Available Not Available Not Available ondansetron HCl 4 mg tablet TAKE 1 TABLET BY MOUTH EVERY 8 HOURS NEEDED FOR NAUSEA/VO MITING active Not Available Not Available No t Available prednisone 20 mg tablet 05/04 completed Not Available Not Available Not Available bacitracin zinc 500 unit/gram topical ointment APPLY EVERY DAY NEEDED 12/12 completed Not Available Not Available Not Available ciprofloxac in 500 mg tablet TAKE 1 TABLET BY MOUTH EVERY 12 HOURS FOR 7 DAYS 02/03 completed Not Available Not Available Not Available sulfamethox azole 800 mg-trimetho prim 160 mg tablet TAKE 1 TABLET BY MOUTH EVERY 12 HOURS FOR 7 DAYS 05/04 completed Not Available Not Available Not Available omeprazole 40 mg capsule,del ayed release 1 tablet by mouth daily 08/30 completed Not Available Not Available Not Available acetaminoph en 500 mg tablet TAKE 2 TABLETS BY MOUTH THREE TIMES DAILY NEEDED FOR PAIN (FOR 7 DAYS.) 12/15 completed Not Available Not Available Not Available triamcinolo ne acetonide 0.1 % topical cream 05/04 completed Not Available Not Available Not Available levothyroxi ne 25 mcg tablet 02/18 completed Not Available Not Available Not Available terbinafine HCl 250 mg tablet Take 1 tablet every day by oral route for 45 days. 06/17 completed Not Available Not Available Not Available potassium chloride 20 mEq oral packet TAKE 1 PACKET TWICE A DAY active Not Available Not Available No t Available famotidine 20 mg tablet 05/01 completed Not Available Not Available Not Available amitriptyli ne 25 mg tablet TAKE 1 TABLET BY MOUTH EVERYDAY AT BEDTIME 12/15 completed Not Available Not Available Not Available dexamethaso ne 1 mg tablet TAKE 1 TABLET BY MOUTH AT 10 PM NIGHT BEFORE 8 AM CORTISOL 05/05 completed Not Available Not Available Not Available levothyroxi ne 50 mcg tablet TAKE 1 TABLET BY MOUTH EVERY DAY IN THE MORNING with 300 mcg 2023 active Not Available Not Available Not Avai lable bisacodyl 10 mg rectal suppository 1 pr daily prn constipat ipn 12/15 completed Not Available Not Available Not Available cephalexin 500 mg capsule TAKE 1 CAPSULE BY MOUTH TWICE DAILY FOR 7 DAYS 12/15 completed Not Available Not Available Not Available pantoprazol e 40 mg tablet,mary yed release 05/04 completed Not Available Not Available Not Available triamcinolo ne acetonide 0.1 % topical ointment APPLY THIN LAYER TOPICALLY TO THE AFFECTED AREA TWICE DAILY 05/04 completed Not Available Not Available Not Available docusate sodium 100 mg capsule Take 1 capsule every day by oral route. 08/30 completed Not Available Not Available Not Available hydrochloro thiazide 25 mg tablet TAKE 1 TABLET BY MOUTH EVERY DAY IN THE MORNING active Not Available Not Available No t Available mupirocin 2 % topical ointment APPLY TO AFFECTED AREA(S) TWICE DAILY FOR 5 DAYS 08/30 completed Not Available Not Available Not Available furosemide 20 mg tablet Take 1 tablet every day by oral route for 7 days. 05/05 completed Not Available Not Available Not Available ergocalcife rol (vitamin D2) 1,250 mcg (50,000 unit) capsule TAKE 1 CAPSULE BY MOUTH TWICE WEEKLY IN THE MORNING x 90 days active Not Available Not Available No t Available albuterol sulfate HFA 90 mcg/actuati on aerosol inhaler Inhale 2 puffs 6 4hrs prn 2023 active Not Available Not Available Not Avai lable oxybutynin chloride 5 mg tablet 05/04 completed Not Available Not Available Not Available ondansetron 4 mg disintegrat ing tablet PRN 08/30 completed Not Available Not Available Not Available metformin ER 500 mg tablet,exte nded release 24 hr Take 1 tablet twice a day by oral route before meals for 30 days. 05/05 completed Not Available Not Available Not Available doxycycline hyclate 100 mg tablet TAKE 1 TABLET BY MOUTH TWICE DAILY FOR 7 DAYS 07/07 completed Not Available Not Available Not Available amoxicillin 875 mg-potassiu m clavulanate 125 mg tablet Take 1 tablet every 12 hours by oral route for 10 days. 05/06 completed Not Available Not Available Not Available neomycin-po lymyxin-hyd rocort 3.5 mg-10,000 unit/mL-1 % ear drops,susp INSTILL 4 DROPS INTO AFFECTED EAR(S) BY OTIC ROUTE 3 TIMES PER DAY 05/06 completed Not Available Not Available Not Available rosuvastati n 20 mg tablet TAKE 1/2 (ONE-HALF ) TABLET BY MOUTH ONCE DAILY active Not Available Not Available No t Available Klor-Con M20 mEq tablet,exte nded release TAKE 1 TABLET (20 MEQ TOTAL) BY MOUTH 2 (TWO) TIMES A DAY active Not Available Not Available No t Available nitrofurant oin monohydrate /macrocryst als 100 mg capsule TAKE 1 CAPSULE BY MOUTH EVERY 12 HOURS FOR 7 DAYS 06/17 completed Not Available Not Available Not Available Golytely 236 gram-22.74 gram-6.74 gram-5.86 gram oral solution DIRECTED 2024 active Not Available Not Available Not Avai lable Bystolic 10 mg tablet Take 1 tablet every day by oral route for 1 day. 04/22 completed Not Available Not Available Not Available Double Antibiotic (bacitrcn zn) 500 unit-10,000 unit/gram top ointment Apply 1 applicati on every day by topical route as needed. 12/12 completed Not Available Not Available Not Available Trulicity 1.5 mg/0.5 mL subcutaneou s pen injector INJECT CONTENTS OF 1 PEN BY SUB Q ROUTE EVERY 7 DAYS 09/04 completed Not Available Not Available Not Available Ozempic 0.25 mg or 0.5 mg (2 mg/1.5 mL) subcutaneou s pen injector Inject by subcutane ous route for 28 days. 05/05 completed Not Available Not Available Not Available Tirosint-So l 150 mcg/mL oral solution Take 1 mL every day by oral route. 05/04 completed Not Available Not Available Not Available Tirosint-So l 200 mcg/mL oral solution Take 1 mL every day by oral route. 05/04 completed Not Available Not Available Not Available Fluzone Quad (PF) 60 mcg (15 mcg x 4)/0.5 mL IM syringe TO BE ADMINISTE RED BY PHARMACIS T FOR IMMUNIZAT ION 10/18 completed Not Available Not Available Not Available Fluzone Quad (PF) 60 mcg (15 mcg x 4)/0.5 mL IM syringe active Not Available Not Available N ot Available Vitals Date Recorded Body height Body mass index (BMI) Body weight Body temperature Heart rate Oxygen saturation Oxygen saturation in Arterial blood by Pulse oximetry Systolic blood pressure Diastolic blood pressure Provider Name and Address Organization Details Last Updated DateTime 4 154.94 cm 46.3 kg/m2 459748. 13 g 97.9 [degF] 70 /min 98 % 98 % 154 mm[Hg] 92 mm[Hg] Selvin Benavides RN [facility] [facility] 4 09:29:55 Date Recorded Body height Body mass index (BMI) Body weight Body temperature Heart rate Oxygen saturation Oxygen saturation in Arterial blood by Pulse oximetry Provider Name and Address Organization Details Last Updated DateTime 4 154.94 cm 48.6 kg/m2 080576. 24 g 97 [degF] 76 /min 94 % 94 % Selvin Benavides RN [facility] 4 09:30:58 Date Recorded Systolic blood pressure Diastolic blood pressure Provider Name and Address Organization Details Last Updated DateTime 12/16/2023 138 mm[Hg] 78 mm[Hg] Shilpa Grady MD [address] [place] [address], [id number], [facility] 12/16/2023 09:43:50 Date Recorded Body height Body mass index (BMI) Body weight Body temperature Heart rate Oxygen saturation Oxygen saturation in Arterial blood by Pulse oximetry Pain severity - 0-10 verbal numeric rating [Score] - Reported Systolic blood pressure Diastolic blood pressure Provider Name and Address Organization Details Last Updated DateTime 4 154.94 cm 52.3 kg/m2 728219. 09 g 96.6 [degF] 78 /min 93 % 93 % 0 130 mm[Hg] 78 mm[Hg] Brenda Estrada MA [facility] 4 11:16:04 Date Recorded Body height Body mass index (BMI) Body weight Body temperature Heart rate Oxygen saturation Oxygen saturation in Arterial blood by Pulse oximetry Pain severity - 0-10 verbal numeric rating [Score] - Reported Systolic blood pressure Diastolic blood pressure Provider Name and Address Organization Details Last Updated DateTime 5 154.94 cm 48.4 kg/m2 365981. 65 g 97.6 [degF] 73 /min 96 % 96 % 0 144 mm[Hg] 80 mm[Hg] NOHEMY Westfall [employer] 5 11:37:46 Date Recorded Body height Heart rate Oxygen saturation Oxygen saturation in Arterial blood by Pulse oximetry Body mass index (BMI) Body weight Systolic blood pressure Diastolic blood pressure Provider Name and Address Organization Details Last Updated DateTime 5 154.94 cm 72 /min 97 % 97 % 49.5 kg/m2 633799. 2 g 142 mm[Hg] 78 mm[Hg] ROSA Chamorro MA [employer] [email or web address] [facility] 5 11:24:47 Social History Question Answer Notes LastModified by Organizat ion Details LastModified Time Tobacco Smoking Status Never Smoker Madeleine Edis geller [facility] 05/05/2023 10:22:28 What Is Your Level Of Alcohol Consumption? None [id number] Information not available 10/02/2022 What Is Your Level Of Caffeine Consumption? None [id number] Information not available 10/02/2022 How Much Tobacco Do You Chew? None [id number] Information not available 10/02/2022 In The 14 Days Before Symptom Onset, Have You Had Close Contact With A Laboratory-confir med COVID-19 While That Case Was Ill? No [email or web address] Information not available 05/05/2023 In The 14 Days Before Symptom Onset, Have You Had Close Contact With A Person Who Is Under Investigation For COVID-19 While That Person Was Ill? No Information not available 05/05/2023 Are You Currently Employed? Yes Information not available 05/04/2024 What Type Of Diet Are You Following? REGULAR [id number] Information not available 10/02/2022 Which Illicit Or Recreational Drugs Have You Used? None [email or web address] Information not available 05/05/2023 Do You Or Have You Ever Used E-cigarettes Or Vape? 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 No Information no t available 05/04/2024 Are There Any Guns Present In Your Home? No [email or web address] Information not available 05/05/2023 Do You Use Insect Repellent Routinely? No [email or web address] Information not available 05/05/2023 Where Do You Live? Apartment Information not available 05/05/2023 What Was The Date Of Your Most Recent Tobacco Screening? 08/31/2024 Information not available 08/31/2024 How Many Children Do You Have? 0 Information not available 05/04/2024 Do You Have Any Pets? No [email or web address] Information not available 05/05/2023 What Is Your Relationship Status? Information not available 05/04/2024 Do You Use Your Seat Belt Or Car Seat Routinely? Yes [email or web address] Information not available 05/05/2023 Do You Have Smoke And Carbon Monoxide Detectors In Your Home? Yes [email or web address] Information not available 05/05/2023 Are You Passively Exposed To Smoke? Yes Information no t available 05/05/2023 Do You Or Have You Ever Used Smokeless Tobacco? Never Used Smokeless Tobacco [id number] Information not available 10/02/2022 Are There Any Smokers In Your House? Yes [email or web address] Information not available 05/05/2023 How Much Tobacco Do You Smoke? No [id number] Information not available 10/02/2022 Do You Participate In Social Media? Yes [email or web address] Information not available 05/05/2023 Do You Feel Stressed (tense, Restless, Nervous, Or Anxious, Or Unable To Sleep At Night)? [id number] Information not available 05/05/2023 Do You Use Any Illicit Or Recreational Drugs? No Information not available 05/05/2023 Do You Use Sunscreen Routinely? Yes [email or web address] Information not available 05/05/2023 Has Tobacco Cessation Counseling Been Provided? No Information not available 05/05/2023 Have You Recently Traveled Abroad? No [email or web address] Information not available 05/05/2023 Do You Have Any Dietary Restrictions? No Information not available 05/05/2023 Do You Or Have You Ever Used Any Other Forms Of Tobacco Or Nicotine? No Information not available 05/05/2023 Sex: Female Functional Status Question Answer Note LastModified by Organizat ion Details LastModified Time What is your exercise level? Occasional [id number] Information not available 10/02/2022 Mental Status None recorded. Family History Relationship Description Onset Age of this Age Resolved Age Notes LastModified by Organization Details LastModified Time Mother Diabetes mellitus [id number] Not available 10/02/2022 04:29:37 Mother Hypertensive disorder [id number] Not available 10/02/2022 04:29:37 Medical History Condition Response HEADACHES/MIGRAINES N OBESITY Y GERD/NAUSEA Y HYPOTHYROIDISM Y SKIN PROBLEMS Y HAVE YOU BEEN HOSPITALIZED OR SEEN IN [facility] ER IN THE PAST YEAR ? Y HYPERTENSION Y HIGH CHOLESTEROL / HYPERLIPIDEMIA Y Gynecological History Statement/Question Response Date of Last Mammogram Flow Light Date of LMP 10/16/2020 Dislike of Light during Menstrual Headac he N Date of Last Pap Duration of Flow (days) 5 Current Control Method None Age at Menarche 9 Breast Problems no How many live births 0 Date of Last Colonoscopy Most Recent Bone Density Menses Monthly Y Obstetrics History GPAL:G 0 P 0 0 0 0 Type Value Multiple Births 0 Full Term 0 Induced 0 Spontaneous 0 Premature 0 Living 0 Ectopics 0 Total 0 Immunizations Vaccine Type Date Status Note Provider Nam e and Address Organization Details Recorded Time COVID-19, mRNA, LNP-S, PF, 30 mcg/0.3 mL dose 1 completed Lisa geller MA [employer] [facility] 03/24/2023 10:00:15 Influenza, split virus, trivalent, preservative 1 completed Lisa geller [facility] 03/24/2023 10:00:15 COVID-19, mRNA, LNP-S, PF, 30 mcg/0.3 mL dose 1 completed Puja Jessica APRN [address], [address], [place], [address], [facility] 05/04/2024 09:03:38 COVID-19, mRNA, LNP-S, PF, 30 mcg/0.3 mL dose 1 completed Puja Jessica APRN [address], [address], [place], [address], [facility] 05/04/2024 09:03:38 Influenza, split virus, quadrivalent, PF 2 completed Not Available [facility] 03/17/2023 22:15:54 Influenza, split virus, quadrivalent, PF 3 completed Shilpa Grady MD [address] [place] [address], [place] [address], [place], [address], [facility] 05/07/2023 08:34:26 Influenza, split virus, trivalent, PF [address] [facility] yimi, [facility] 05/04/2024 11:56:05 Past Encounters Encounter ID Performer Location Encounter Start Date Encounter Closed Date Diagnosis/Indication Diagnosis SNOMED-CT Code Diagnosis ICD10 Code Diagnosis Note [id number] [facility] [place] [address] [facility] [address] [place] [address] 10/19/2020 00:00:00 10/19/2020 11:05:39 [id number] [facility] [place] [address] [place] [address] [address] [facility], [place] [address] 11/22/2020 00:00:00 11/23/2020 20:56:42 [id number] [facility] [place] [address] [facility] [address] [place] [address] 01/30/2021 00:00:00 01/30/2021 20:13:28 [id number] [facility] [place] [address] [facility] [address] [place] [address] 03/01/2021 00:00:00 03/01/2021 12:59:36 [id number] [facility] [place] [address] [facility] [address] [place] [address] 10/10/2021 00:00:00 10/10/2021 16:41:05 [id number] [facility] [place] [address] [facility] [address] [place] [address] 12/18/2021 00:00:00 12/18/2021 18:14:08 [id number] [facility] DEFAULT_1 _1 , 01/04/2022 00:00:00 01/04/2022 10:34:50 [id number] _[facility]_M IGRATION_ DEFAULT_1 _1 , 01/10/2022 00:00:00 01/10/2022 18:30:11 [id number] [facility] [place] [address] [place] [address] 02/12/2022 00:00:00 02/12/2022 18:05:46 [id number] [facility] [place] [address] [place] [address] 02/18/2022 00:00:00 02/19/2022 11:10:56 [id number] [facility] [place] [address] [place] [address] 03/08/2022 00:00:00 03/08/2022 13:45:35 [id number] [facility] [place] [address] [place] [address] 05/06/2022 00:00:00 05/06/2022 12:14:58 [id number] [facility] [place] [address] [place] [address] 07/19/2022 00:00:00 07/19/2022 18:24:30 [id number] [facility] [place] [address] [place] [address] 09/04/2022 00:00:00 09/04/2022 16:29:19 [id number] ULISES Alvarez [facility] [place] [address] [place] [address] 10/09/2022 15:46:44 10/29/2022 03:54:51 [id number] DONG Jimenez [facility] [place] [address] [place] [address] 10/18/2022 15:26:32 10/18/2022 16:39:49 Dysuria 64595533 R30.0 Advised to push fluids. Will do second round of tx with cipro. If no improvemen t, will have her come back next week to give urine sample to be able to send for culture. Prediabetes 332927301 R7 3.03 Pt. would like to try ozempic for weight loss.Will send script to see if we can get approval. [id number] DONG Jimenez [facility] Primary Care [facility] [address] [facility] [address] [place] [address] 02/03/2023 09:24:40 02/03/2023 11:38:56 Cellulitis of lower limb 591538305 L03.119 Will do course of bactrim, advised to elevate.Th ere is erythema but improving, mild warmth.She is aware of signs/symp toms to seek immediate evaluation . Eczema 69733581 L30.9 Bilateral legs, worse on right side.She does states legs are very itchy and I think her scratching is potentiall y causing increased risk for the cellulitis . Advised to use strong emollient daily and will do topical steroid.If still no improvemen t, will send to dermatolog y to evaluate further. Morbid obesity 838813395 E66.01 Discussed healthy eating/lif estyle.We tried to get ozempic covered but was denied by insurance. She inquired about phentermin e but advised would not be safe until her BP is under better control and she is compliant with her medication . Hypertensive disorder 38 178609 I10 Pt. states she has not been taking BP medication . Advised she needs to pick it up and take it on a regular basis as prescribed . [id number] DONG Jimenez [facility] Primary Care [facility] [address] [facility] [address] [place] [address] 02/13/2023 16:10:05 02/13/2023 17:36:17 Cellulitis of lower limb 459471058 L03.119 Advised to finish current course of abx. Symptoms do appear to be improving. She states while at ER they were not concerned about her legs and all work-up was unremarkab le. 02/03/23: Will do course of bactrim, advised to elevate.Th ere is erythema but improving, mild warmth.She is aware of signs/symp toms to seek immediate evaluation . Hypertensive disorder 38 935396 I10 Will continue to monitor, has not been taking medication correctly. Went over medication today. Edema of l ower extremity 617740901 R60.0 Will do short course of lasix to help pull of fluid. Continue elevation. Reduce sodium. [id number] JOLEEN AlvarezP [facility] Primary Care [facility] [address] [place] [address] 03/24/2023 09:42:13 03/24/2023 10:37:41 Recurrent cellulitis 575289746 L03.90 Acute over chronicPoo rly controlled despite 2 rounds of abx. Will give round of doxycyclin e, but sx may actually represent worsening of PVD. Essential hypertension 59859799 I10 Not in good controlPt reports she took bp meds right before appt.Asymp tomatic at this time. Pt denies any SHI, cp, sob, palpitatio ns.Elevati on may be due, in part, to poor circulatio n d/t PVD.Encour aged pt to increase water intake, reduce caffeine intake, exercise regularly, decrease/e liminate sodium intake, work on weight loss and stress reductionW ill continue to monitor closely Peripheral vascular disease 854205539 I73.9 ChronicNot well controlled Suspect pts recurrent episodes of cellulitis may actually be PVD. Recommend pt f/u with vascular for further evaluation of circulatio n in lower extremitie s. Dyspnea on exertion 6084 5006 R06.09 Recurrent problemRec ommended patient seek treatment at the Emergency Department if dyspnea at rest, tachypnea, or use of accessory muscles.Wi ll refill albuterol inhaler.En couraged to use rescue inhaler more frequently during times of temperatur e extremes.I nstructed on correct inhaler use. Avoid any triggers such as dust, chemicals, smoke. With continued sx, may need to start Montelukas t or try combo inhaler. 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.[address] scan showed left congenital atretic kidneyNeed to consider this issue if persistent difficulty managing htn [id number] VERA Benitez [facility] Primary Care [address] [place] [address] 05/30/2023 16:18:14 06/04/2023 15:57:38 [id number] Shilpa Grady MD [address] [address] 06/17/2023 09:29:27 06/19/2023 17:13:33 Hypothyroidism 57241723 E03.9 Prediabetes 360977932 R7 3.03 Cobalamin deficiency 190 997805 E53.8 Screening mammography 24 515125 Z12.31 Cramp in lower limb 4499 05074 R25.2 [id number] Shilpa Grady MD [address] [address] 09/16/2023 09:18:21 09/16/2023 09:52:18 [id number] Shilpa Grady MD [address] [address] 12/16/2023 09:22:50 12/16/2023 09:49:42 [id number] Puja Jessica APRN [facility] Internal Med [address] [place] [address] 05/04/2024 10:56:58 05/04/2024 12:05:05 Cobalamin deficiency 990452793 E53.8 Hypothyroidism 93294236 E03.9 Prediabetes 621394156 R7 3.03 Dyslipidemia 147925476 E 78.5 Hepatitis C screening 41 8510607 Z11.59 Administra tion of influenza vaccine 90336160 Z23 Screening mammography 24 666018 Z12.31 Screening for malignant neoplasm of colon 270811304 Z12.11 Lymphedema of bilateral lower limbs 6911808589 8415845 I89.0 Hypertensive disorder 38 790715 I10 Constipation 67216318 K5 9.00 Renewal of prescription 167291303 Z76.0 Cellulitis of lower limb 363746938 L03.119 Gastroesop hageal reflux disease 828407401 K21.9 [id number] Puja Jessica APRN [facility] Internal Med [address] [facility], [facility] [address] [place] [address] 08/31/2024 11:25:47 08/31/2024 11:45:30 Colorectal cancer detected by DNA-based stool screening 643532479 R19.5 [facility] 00590684 E03.9 [id number] Alessia Segura MD [facility] General Surgery [address] [facility] [place] [address] 10/06/2024 11:23:27 10/06/2024 12:16:06 Colorectal cancer detected by DNA-based stool screening 185597500 R19.5 Health Concerns Section Related Observation LastModified by Organization Detai ls LastModified Time None Recorded Concern Status LastModified by Organization Details LastModified Time None Recorded Advance Directives Directive None Recorded Payers Encounter Date Sequence Insurance Name Policy Number Policy Bowers Covered Member ID Bowers Member ID Guarantor Name 09/16/2023 1 *SELF PAY* Paulo Stewart Senior 12/16/2023 1 *SELF PAY* Paulo Stewart Senior 05/04/2024 1 [facility] - Scrip-t [employer] (PPO) Kassy Stewart Senior [id number] Kassy Stewart Senior 08/31/2024 1 [place] [id number] Kassy Daniels [id number] Kassy Stewart Senior 10/06/2024 1 [place] [id number] Kassy Stewart [facility] [id number] Kassy Stewart [facility] Notes Date Note Type Note Provider Name and Address Organization Details Recorded Time 05/04/2024 text/html Tye presents t misael to establish care as her provider has left the area. She has lymphedema that is being treated by a cardiovascular surgeon. She states that her insurance will not pay for her to have physical therapy. She is asking for a certified medical coding specialist consult. Puja Jessica APRN [address], [facility] [address], [place], [address], [facility] 05/04/2024 15:34:29 08/31/2024 text/html Tye presents brandon douglas for 3 month follow up. She recently had a positive cologuard which she has been referred to GI. She states that she use to have an butcher chicken and fish but has not seen one in a while. 05/04/2024hrbessy presents today to establish care as her provider has left the area. She has lymphedema that is being treated by a cardiovascular surgeon. She states that her insurance will not pay for her to have physical therapy. She is asking for a certified medical coding specialist consult. Puja Jessica APRN [address], [facility] [address], [place], [address], [employer] 08/31/2024 12:01:17 10/06/2024 text/html PT WAS SEEN IN T HE OFFICE TODAY FOR A POSITIVE COLOGUARD TEST . . PT DENIES ABD PAIN /N/V/D/BLEEDING /WT LOSS/ NSAIDS . Alessia Segura MD [address], [facility] [address], [place], [address], [facility] 10/06/2024 13:51:33 OBGyn Episode No OBEpisode recorded.
--- OUTSIDE RECORDS SUMMARY | 2024-10-12 11:17 | XMS_ITS | Clinical Summary ---
Author Organization [facility] the [facility] Office Center Address [address] [place] [address] Care Team Providers Care Cigar Wrapper Name Role Phone Puja Jessica NP Primary Care Provider + [phone] Starr Roberson Unavailable [phone] Allergies Active Allergy Reactions Criticality Noted Date [...] 01/17/2015 Overview (11/07/2016): Essential hypertension Morbid obesity Encounters Date Type Department Care Team Description 08/19/2024 Telephone [facility] [address] [place] [address] [address] [address] Sabrina Green MD new referral to endocrinology 07/21/2024 9:00 AM ORDNANCE ENGINEERING TECHNICIAN Office Visit [facility] Cardiology [address] [place] [address] Maude Zabala NP Lipid screening (Primary Dx); Mixed hyperlipidemia; Essential hypertension; Bilateral lower extremity edema; LUJAN (dyspnea on exertion); Morbid obesity (HCC) from Last 3 Months Surgical History Surgery Date Site/Laterality Comments EAR SURGERY ANKLE SURGERY APPENDECTOMY Medical History Medical History Date Comments Hx Other Medical hypothyroidism, obesity, hypertension, appendectom; Comments: [facility] 12/27/2014 - Hypertension Acid reflux Thyroid disease Morbid obesity (HCC) Family History Medical History Relation Name Comments Other Brother 2 Alive and well; Heart disease Father Other Father Alive and well; Stroke Mother Stroke; Other Sister 2 Alive and well; Relation Name Status Comments Brother 1 Alive Brother 2 Father Alive Mother (Age 69) Sister 1 Alive Sister 2 Social History Tobacco Use Types Packs/Day Years Used Date Smoking Tobacco: Never Smokeless Tobacco: Never Tobacco Cessation:Counseling Given: Not Answered Alcohol Use Standard Drinks/Week Comments Yes 0 (1 standard drink = 0.6 oz pur e alcohol) Comments Unknown Sex and Gender Information Value Date Recorded Sex Assigned at Not on file Legal Sex Female 3:36 AM ORDNANCE ENGINEERING TECHNICIAN Gender Identity Not on file Sexual Orientation Not on file Obstetrics History Last Filed Vital Signs Vital Sign Reading Time Taken Comments Blood Pressure 138/90 07/21/2024 8:44 AM ORDNANCE ENGINEERING TECHNICIAN Pulse 73 07/21/2024 8:44 AM ORDNANCE ENGINEERING TECHNICIAN Temperature 36.5 C (97.7 F) 03/17/2020 12:58 PM CDT Respiratory Rate - - Oxygen Saturation 94% 07/21/2024 8:44 AM ORDNANCE ENGINEERING TECHNICIAN Inhaled Oxygen Concentration - - Weight 119.3 kg (263 lb) 07/21/2024 8:44 AM ORDNANCE ENGINEERING TECHNICIAN Height 154.9 cm (5' 1 ) 07/21/2024 8:44 AM ORDNANCE ENGINEERING TECHNICIAN Body Mass Index 49.69 07/21/2024 8:44 AM ORDNANCE ENGINEERING TECHNICIAN Plan of Treatment Health Maintenance Due Date Last Done Comments Breast Cancer Screening-Mammogram 1969 Cervical Cancer Screening 1969 Colon Cancer Screening-Colonoscopy 1969 Depression Screening 1969 Hepatitis C Screening 1969 DTaP/Tdap/Td Vaccine (1 - Tdap) 1980 Hepatitis B Screening 11/14/1987 Regular Well Visit/Exam 18-64 11/14/1987 Zoster Vaccine (1 of 2) 11/14/2019 Covid-19 Vaccine ( season) 2024 08/01/2021, 09/22/2020, 09/01/2020 Influenza Vaccine Completed 05/04/2024, , 07/19/2022, Additional history exists Pneumococcal vaccine <65 Aged Out No longer eligible based on patient's age to complete this topic Procedures Procedure Name Priority Date/Time Associated Diagnosis Comments POCT LIPID PANEL Routine 07/21/2024 8:50 AM ORDNANCE ENGINEERING TECHNICIAN Lipid screening from Last 3 Months Results * POCT lipid panel (07/21/2024 8:50 AM ORDNANCE ENGINEERING TECHNICIAN) Cholesterol, POC 173 mg/dL HDL, POC 25 mg/dL Triglycerides, POC 151 mg/dL LDL Cholesterol POC 118 mg/dL Chol/HDL Ratio, POC 4.8 Non-HDL Cholesterol, POC 149 mg/dL Cholesterol Total, POC 173 mg/dL Capillary blood 07/21/2024 8 :50 AM ORDNANCE ENGINEERING TECHNICIAN Maude Zabala NP POINT OF CARE TEST ORDERABLE S Final Result from Last 3 Months Insurance [place] Care Teams Cigar Wrapper Relationship Specialty Start Date End Date Puja Jessica ANALYTICAL DATA SCIENTIST [address] [facility] [address] [place] [address] PCP - General Family Medicine 07/21/24 Starr Roberson PA [address] [place] [address] [place] [address] 07/21/24
== END 2024-10-12 09:59 | disposition home or self-care (01) ==
LOC: ANHIMG 10:03
PROVIDERS: PCP Nurse Practitioner Family; Visit Provider Nurse Practitioner Family
DX: R94.6 Abnormal results of thyroid function studies (principal)
CPT/HCPCS: 76536

== ENCOUNTER 2025-06-06 19:28 | Emergency (ER) | payer BC, SELFPAY ==
--- NOTE | ~2025-06-06 | CT_ITS ---
CT chest abdomen pelvis w con HISTORY: sepsis . COMPARISON: None. TECHNIQUE: Axial images of the chest, abdomen and pelvis were obtained without and with infusion of 100 Isovue 300. FINDINGS: CT CHEST: The examination demonstrates no pulmonary nodules, infiltrates and/or effusions. No pathologically enlarged hilar or mediastinal lymphadenopathy is seen. Cardiac size and mediastinal configuration are normal in appearance. The pulmonary artery and thoracic aorta are normal in caliber and patency. Osseous structures are intact. The visualized organs of the upper abdomen are unremarkable. IMPRESSION: No acute cardiopulmonary process. No pathologic enhancement is noted. No pathologically enlarged mediastinal lymphadenopathy is noted. CT abdomen and pelvis with contrast: Fatty infiltration of the liver is noted. No intrahepatic mass or ductal dilatation is evident. The gallbladder is unremarkable. The pancreas and spleen are normal in appearance. The adrenal glands are symmetric in size. There is atrophy of the left kidney with compensatory hypertrophy of the right kidney. No cystic mass is evident. There is no solid mass. There is no hydronephrosis. Noncontrast there are no bowel obstruction or evidence of acute appendicitis. The bladder and rectum are normal. No free intraperitoneal fluid or air is evident. There is no significant retroperitoneal lymphadenopathy. The aorta, visceral vessels and renal arteries demonstrate normal caliber and patency. The lower thoracic and lumbar vertebrae are in normal alignment. IMPRESSION: No acute abnormality is noted in the abdomen and pelvis. Atrophy of the left kidney with hypertrophy of the right kidney. All CT scans at this facility are performed using low dose modulation techniques as appropriate to perform exam including the following: automated exposure control; use of iterative reconstruction technique; adjustment of the mA and/or kV according to patient size (this includes techniques or standardized protocols for targeted exams where dose is matched to indication/reason for exam) Reviewed, dictated and finalized at location S. IAC TECH IMPRESSION: No acute cardiopulmonary process. No pathologic enhancement is noted. No pathologically enlarged mediastinal lymphadenopathy is noted. CT abdomen and pelvis with contrast: Fatty infiltration of the liver is noted. No intrahepatic mass or ductal dilata tion is evident. The gallbladder is unremarkable. The pancreas and spleen are n ormal in appearance. The adrenal glands are symmetric in size. There is atrophy of the left kidney with compensatory hypertrophy of the right kidney. No cystic mass is evident. There is no solid mass. There is no hydronep hrosis. Noncontrast there are no bowel obstruction or evidence of acute appendicitis. The bladder and rectum are normal. No free intraperitoneal fluid or air is evid ent. There is no significant retroperitoneal lymphadenopathy. The aorta, visceral vessels and renal arteries demonstrate normal caliber and p atency. The lower thoracic and lumbar vertebrae are in normal alignment. IMPRESSION: No acute abnormality is noted in the abdomen and pelvis. Atrophy of the left kidney with hypertrophy of the right kidney. All CT scans at this facility are performed using low dose modulation techniqu es as appropriate to perform exam including the following: automated exposure c ontrol; use of iterative reconstruction technique; adjustment of the mA and/or kV according to patient size (this includes techniques or standardized protocol s for targeted exams where dose is matched to indication/reason for exam)
[2025-06-06 19:41] VITALS: BP 156/88; PULSE 112; RESP 22; TEMP 39.2; O2SAT 94
[2025-06-06 20:30] LABS: Influenza A QL RT-PCR Negative (Negative); Influenza B QL RT-PCR Negative (Negative); RSV RNA, RT-PCR Negative (Negative); SARS-CoV-2 RNA PCR Negative (Negative)
[2025-06-06 22:07] LABS: Hematocrit 30.6 % (37.0-47.0); Hemoglobin 8.9 g/dL (12.0-15.0); Immature Granulocyte Percent A 0.7 % (0-0.5); Lymphocytes Absolute Auto 0.81 K/mm3 (0.9-3.2); Mean Corpuscular HGB Conc 29.1 g/dl (32-36); Mean Corpuscular Hemoglobin 24.3 pg (26-34); Mean Corpuscular Volume 83.6 fl (80-100); Nucleated Red Blood Cells Absolute Auto 0.000 K/mm3 (0.0-0.012); Nucleated Red Blood Cells Perc 0.0 % (0.0-0.2); Platelet Count Result 355 k/mm3 (150-375); Red Blood Count 3.66 M/mm3 (4.2-5.4); White Blood Count 14.8 K/mm3 (4.5-10.0)
[2025-06-06 22:08] LABS: Add Urine Microscopic? NO; Appearance Urine Clear (Clear); Glucose Urine UA Negative (Negative); Leukocyte Esterase Ur Negative LEU/UL (Negative); Nitrate Urine Negative (Negative); Specific Grav Ur 1.015 (1.001-1.035)
--- OUTSIDE RECORDS SUMMARY | 2025-06-06 22:11 | XMS_ITS | Data Portability ---
Author Organization [facility] [place], Main Office Address [address] [place] [address] Assessment No assessment recorded. Plan of Treatment Reminders Order Date Submit Date Provider Last Modified By Organization Details Last Modified Time Details Appointments Follow Up 30 2025 09:00A Terry Spain NP Not available Not available Not available Lab CBC w/ auto diff 2024 025 [email or web address] [facility] (Lab), [address] [place], [address], 04/13/2025 14:21:42 glycohemo globin, total, blood 2024 025 [email or web address] [facility] (Lab), [address] [place], [address], 04/13/2025 14:21:41 lipid panel, serum 2024 025 [email or web address] [facility] (Lab), [address] [place], [address], 04/13/2025 14:21:41 CMP, serum or plasma 2024 025 [email or web address] [facility] (Lab), [address] [place], [address], 04/13/2025 14:21:41 vitamin B12 + folate, serum or blood 2024 025 [email or web address] [facility] (Lab), [address] [place], [address], 04/13/2025 14:21:41 vitamin D, 25-hydrox y, total, serum [address] (Lab), [address] [place], [address], 04/13/2025 14:21:41 TSH, serum or plasma [address] (Lab), [address] [place], [address], 04/13/2025 14:21:41 lipid panel, serum 2023 [facility] (Lab), [address] [place], [address], 07/13/2024 08:22:50 CMP, serum or plasma 2023 024 [facility] (Lab), [address] [place], [address], 07/13/2024 08:22:50 CBC w/ auto diff 2023 024 [facility] (Lab), [address] [place], [address], 07/13/2024 08:22:50 glycohemo globin, total, blood 2023 024 [facility] (Lab), [address] [place], [address], 07/13/2024 08:22:49 noninvasi ve colorecta l cancer DNA + occult blood screening , QL, stool 2023 [facility], [address], [address], [place], [address], 08/21/2024 00:51:04 hepatitis C virus Ab, serum 2023 024 [facility] (Lab), [address] [place], [address], 07/13/2024 08:22:50 TSH, serum or plasma 2023 024 [facility] (Lab), [address] [place], [address], 07/13/2024 08:22:50 T4, free, serum 2023 024 [facility] (Lab), [address] [place], [address], 07/13/2024 08:22:50 vitamin B12 + folate, serum or blood 2023 024 [facility] (Lab), [address] [place], [address], 07/13/2024 08:22:50 Referral endocrino logy referral - Please call patient to schedule an appointme nt. Thank you. 2024 025 MICHELE Mable Daily MD, [address], [address], 09/24/2024 11:19:54 gastroent erologist referral 2024 025 [email or web address] 2 Enrico López MD, [address] [place], [address], 09/01/2024 11:40:47 wound care referral - Please call patient to schedule. 2023 024 [facility], [address] [facility], [address], [place], [address], 09/01/2024 08:14:42 Procedures colonosco py procedure (PROC) 2024 025 [facility] (Pre-Screen), [address] [place], [address], 11/08/2024 09:54:34 upper endoscopy procedure (EGD) (PROC) 2024 025 [facility] (Pre-Screen), [address] [place], [address], 11/03/2024 16:34:09 Surgeries None recorded. Imaging MAMMO, screening , digital, bilateral - Please call patient to schedule. [address] ([facility]), [address] [place], [address], 04/13/2025 08:07:54 MAMMO, screening , digital, bilateral - Please call patient to schedule. [address] ([facility]), [address] [place], [address], 06/15/2024 09:50:39 Medication Orders Golytely 236 gram-22.7 4 gram-6.74 gram-5.86 gram oral solution 2024 [facility], [address] [place] [address], [address], 10/06/2024 13:51:38 albuterol sulfate HFA 90 mcg/actua tion aerosol inhaler 2023 024 [facility], [address] [place] [address], [id number], 05/04/2024 11:46:45 albuterol sulfate 2.5 mg/3 mL (0.083 %) solution for nebulizat ion 2023 024 [facility], [address] [place] [address], [id number], 05/04/2024 11:46:45 mupirocin 2 % topical ointment [address] [facility], [address] [place] [address], [id number], 08/31/2024 11:49:28 carvedilo l 25 mg tablet 2023 [email or web address] [facility], [address] [place] [address], [id number], 04/07/2025 10:29:24 omeprazol e 40 mg capsule,d elayed release [address] [facility] [address] [facility], [address] [place] [address], [id number], 08/31/2024 11:49:28 docusate sodium 100 mg capsule [address] [facility] [address] [facility], [address] [place] [address], [id number], 08/31/2024 11:49:28 levothyro xine 300 mcg tablet 2023 [facility], [address] [place] [address], [id number], 05/04/2024 11:46:46 levothyro xine 50 mcg tablet 2023 [facility], [address] [place] [address], [id number], 05/04/2024 11:46:42 Patient TargetsNo targets recorded. Patient Instructions Encounter Date Encounter Id Patient Instructions Last Modified By Organization Details Last Modified Time 05/04/2024 [id number] Follow up in 3 months Prescriptions sent to pharmacy Obtain labs Tests: Referral: Wound care-lymphedema Recommend: Tetanus vaccine Shingles vaccine Not available 05/04/2024 11:46:19 08/31/2024 [id number] Follow up in 4 months Tests: Complete thyroid ultrasound Referral: Dr. LópezFrgbq-VL-eeslufjlo py [facility] endocrinology-elev ated TSH Recommend: Pneumococcal vaccine Tetanus vaccine Shingles vaccine Not available 08/31/2024 11:59:50 10/06/2024 [id number] GOLYTELY [email or web address] Not available 12/2024 13:51:00 PT IS COLOGUARD POSITIVE . R/O PUD/ GASTRITIS /POLYP /CA . RECOMMEND EGD /COLON RISKS BENEFITS AND COMPLICATIONS WERE EXPLAINED TO PT . ( BLEEDING , PERFORATION , INFECTION , ) PT VERBALIZES UNDERSTANDING AND IS WILLING TO PROCEDE . [email or web address] Not available 10/06/2024 13:51:12 Reason for Referral Please call patient to raúl che. Referring Physician: Puja Jessica, Internal Medicine, Encounter Date: 05/04/2024 Directory Clerk Referral for Colorectal cancer detected by DNA-based stool screening Referring Physician: Puja Jessica, Internal Medicine, Encounter Date: 08/31/2024 Endocrinology Referral for H ypothyroidism Please call patient to schedule an appointment. Thank you. Referring Physician: Puja Jessica, Internal Medicine, Encounter Date: 08/31/2024 Results Created Date Observation Date Name Description Value Unit Range Abnormal Flag Note LastModifiedBy Organization Detail LastModifiedTime 08/16/19 25 08/16/2024 COLOG UARD cologuard result reportable POSITI VE negati ve abnormal POSIT RUPERTO TEST RESUL T. A posit ruperto Colog uard resul t shoul d be follo wed with a colon oscop y or visua l exami natio n of the colon . The piero l value (refe rence range ) for this assay is negat ruperto. TEST DESCR IPTIO N: [place] site algor ithmi c jose sis of stool DNA-b teodora fragoso with hemog lobin immun oassa y. Quant itati ve value s of indiv idual bioma rkers are not repor table and are not assoc iated with indiv idual bioma rker resul t refer ence range s. Colog uard is inten ded for color ectal cance r scree shima of adult s of eithe r sex, 45 years or older , who are at [facility] for color ectal cance r (CRC) . Colog uard has been appro abiodun for use by the [place] FDA. The perfo rmanc e of Colog uard was estab lishe d in a cross secti onal study of [facility] adult s aged 50-84 . Colog uard [...] study of 0 indiv idual s at [facility] for color ectal cance r who were [...] d can be acces sed at the [facility]ollo wing locat ion: www.e xactl abs.c om/re zoë . Addit ional descr iptio n of the Colog uard test proce ss, warni ngs and preca ution s can be found at www.c thao amaya.jacquie om. Not Available [facility] [address], [place], [address], 08/21/2024 00:51:04 05/17/2005/17/2025 urina lysis , dipst ick Leukocytes (reference range: negative david/ l) Trace Not Available [address], [place], [address], 05/17/2025 15:29:23 05/17/2005/17/2025 urina lysis , dipst ick Nitrite (reference rage: negative mg/dl) negati ve Not Available [address], [place], [address], 05/17/2025 15:29:23 05/17/2005/17/2025 urina lysis , dipst ick Urobilinogen (reference range: 0.2-1 mg/dl) 0.2 Not Available [address], [place], [address], 05/17/2025 15:29:23 05/17/2005/17/2025 urina lysis , dipst ick Protein (reference range: negative mg/dl) Modera te Not Available [address], [place], [address], 05/17/2025 15:29:23 05/17/2005/17/2025 urina lysis , dipst ick pH (reference range: 5-7) 7.0 Not Available [address], [place], [address], 05/17/2025 15:29:23 05/17/2005/17/2025 urina lysis , dipst ick Blood (reference range: negative Delroy/ l) Non-He molyze d: Trace Not Available [address], [place], [address], 05/17/2025 15:29:23 05/17/2005/17/2025 urina lysis , dipst ick Specific Carver (reference range: 1.005-1.030) 1.025 Not Available [address], [place], [address], 05/17/2025 15:29:23 05/17/2005/17/2025 urina lysis , dipst ick Ketone (reference range: negative mg/dl) Negati ve Not Available [address], [place], [address], 05/17/2025 15:29:23 05/17/2005/17/2025 urina lysis , dipst ick Bilirubin (reference range: negative mg/dl) Negati ve Not Available [address], [place], [address], 05/17/2025 15:29:23 05/17/2005/17/2025 urina lysis , dipst ick Glucose (reference range: negative mg/dl) Negati ve Not Available [address], [place], [address], 05/17/2025 15:29:23 05/17/2005/17/2025 urina lysis , dipst ick Appearance Slight ly Cloudy Not Available [address], [place], [address], 05/17/2025 15:29:23 05/17/2005/1705/17/2025 urina lysis , dipst ick Color Yellow Not Available [facility] [address], [place], [address], 05/17/2025 15:29:23 10/13/19 25 10/12/2024 US, thyro id No observ ation record ed. [facility] [address], [place], [address], 10/13/2024 09:55:36 Result Notes None recorded. Problems Name Problem SNOMED Code Status Onset Date Resolution Date Notes Provider Name and Address Organization Details Recorded Time Lymphedema 428704853 Active Puja Jessica APRN [address], [address], [place], [address] , [employer] 5 21:15:08 Ingrowing toenail 132549946 Active Not Available [facility] 3 22:15:53 Hypertensi ve disorder 63590049 Active 2018 Not Available [facility] 3 22:15:53 Hypothyroi dism 91357615 Active 2018 Puja Jessica APRN [address], [address], [place], [address] , [employer] 4 11:24:16 Metabolic syndrome X 914872604 Active 2019 Puja Jessica APRN [address], [address], [place], [address] , [employer] 4 11:24:23 Paronychia of toe of left foot 3661944685738 9100 Active 2021 Not Available [facility] 3 22:15:52 Dyslipidem ia 183932557 Active 2021 Puja Jessica APRN [address], [address], [place], [address] , [employer] 4 11:23:53 Impaired fasting glycemia 692600434 Active 2021 Not Available [facility] 3 22:15:53 Vitamin B12 deficiency (non anemic) 22778751 Active 2021 Puja Jessica APRN [address], [address], [place], [address] , [facility] [employer] [facility] [employer] [facility] 4 11:24:33 Prediabete s 702791397 Active 2021 Puja Jessica APRN [address], [place], [address] , [facility] [employer] [facility] [employer] 4 11:24:27 Dry skin 15048235 Active 2021 Not Available [facility] 3 22:15:53 Dysuria 19545602 Active 2022 Kera Cordero RN null, [employer] [facility] [employer] 5 15:29:26 Blood in urine 29890153 Active 2022 Not Available [facility] 3 22:15:53 Cellulitis of lower limb 766604714 Active 2022 Not Available [employer] 3 22:15:53 Eczema 06429302 Active 2022 Not Available [facility] 3 22:15:53 Morbid obesity 896068139 Active 2022 Puja Jessica APRN [address], [address], [place], [address] , [employer] [facility] [employer] 4 11:24:18 Edema of lower extremity 177239372 Active 2022 Puja Jessica APRN [address], [place], [address] , [facility] [employer] [facility] [employer] 4 11:23:57 Weight gain 9141352 Active 2022 Not Available [facility] 3 22:15:53 Recurrent cellulitis 169524656 Active 2022 Puja Jessica APRN [address], [place], [address] , [facility] [employer] [facility] 4 11:24:35 Essential hypertensi on 59226543 Active 2022 Puja Jessica APRN [address], [place], [address] , [facility] - [facility] 4 11:24:04 Peripheral vascular disease 910372859 Active 2022 Puja Jessica APRN [address], [place], [address] , [facility] - [facility] 4 11:24:40 Dyspnea on exertion 68938431 Active 2022 ULISES Alvarez [address], [place], [address] , [facility] 3 10:23:06 Lymphedema of bilateral lower limbs 7017856692889 9101 Active 2022 Puja Jessica APRN [address], [place], [address] , [facility] 4 11:24:45 Vaginitis 20262971 Active 2022 Shilpa Grady MD [address], [place], [address] , [facility] 3 10:39:27 Eruption 317327122 Active 2022 Shilpa Grady MD [address], [place], [address] , [facility] 3 10:42:27 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 Puja Jessica APRN [address], [address], [place], [address] , [facility] 4 11:23:47 Acute urinary tract infection 380928906 Active 2022 VERA Benitez [address], [place], [address] , [facility] 3 17:27:32 Cobalamin deficiency 948523666 Active 2022 Puja Jessica APRN [address], [address], [place], [address] , [facility] [employer] [facility] [employer] [facility] 4 11:23:41 Cramp in lower limb 012977852 Active 2022 Shilpa Grady MD [address], [place], [address] , [facility] [employer] [facility] [employer] [facility] 3 09:59:32 Bronchitis 11465586 Active 2023 Shilpa Grady MD [address], [place], [address] , [facility] [employer] [facility] [employer] [facility] 4 09:51:38 Gastroesop hageal reflux disease 385946927 Active 2023 Puja Jessica APRN [address], [place], [address] , [facility] [employer] [facility] [employer] [facility] 4 11:43:22 Thyroid stimulatin g hormone level above reference range 604997768 Active 2023 Puja Jessica APRN [address], [place], [address] , [facility] [employer] [facility] [employer] [facility] 4 14:19:32 Colorectal cancer detected by DNA-based stool screening 104407224 Active 2024 Puja Jessica APRN [address], [place], [address] , [facility] [employer] [facility] 5 09:20:03 Gastroesop hageal reflux disease without esophagiti s 450281780 Active 2024 Angi villanueva MD [address], [place], [address] , [facility] [employer] [facility] 5 11:08:31 Hyperlipid emia 75207476 Active 2024 Angi villanueva MD [address], [place], [address] , [facility] 5 11:09:47 Vitamin D deficiency 50762323 Active 2024 Angi villanueva MD [address] [facility], [address], [place], [address] , [facility] 5 11:10:32 Chronic obstructiv e pulmonary disease 26040812 Active 2024 Angi villanueva MD [address], [place], [address] , [facility] [employer] [facility] 11:10:50 Body mass index 40+ - severely obese 808673665 Active 2024 VERA Lima [address] [address], [place], [address] , [facility] [employer] [facility] 14:17:59 Urinary tract infectious disease 93197199 Active 2024 VERA Lima [address] [facility], [address] [address], [place], [address] , [facility] 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 Procedures Surgical History Date Name Laterality Status Provider Name and Address Organization Details Recorded Time Ear completed Brenda Estrada MA [facility] [employer] [facility] 05/04/2024 11:20:11 Ankle Surgery completed Brenda Estrada MA [facility] [employer] [facility] 05/04/2024 11:20:19 Appendectomy completed Brenda Estrada MA [facility] [employer] [facility] 05/04/2024 11:20:27 Imaging Results None recorded. Procedure Notes None recorded. Medical Equipment None [...] subst ance' . Puja Jessica APRN [address] [address], [place], [address], [employer] [facility] 4 09:03:28 6555 lisinopri l medicatio n Not available Not available Not available 10/02/2022 [id number] RxNorm Other react ions and sever ities : 'Adve rse react ion to subst ance' . Puja Jessica, [employer] [address] [facility] [address] [place], [address], [facility] [employer] [facility] 4 09:03:28 [address]3221 Ozempic medicatio n Not available Not available Not available 12/16/2023 07 RxNorm went to ER for GI s/e Shilpa Grady MD [address], [facility] [address], [place], [address], [employer] [facility] 4 09:43:25 Medications Name Sig Start Date Stop Date Status Note LastModified by Organization Details LastModified Time losartan 50 mg tablet TAKE 1 TABLET BY MOUTH ONCE DAILY 04/07 completed Not Available Not Available Not Available amoxicillin 500 mg capsule Take 1 capsule [...] day by oral route for 90 days. 04/07 completed Not Available Not Available Not Available carvedilol 6.25 mg tablet 04/22 completed Not [...] Not Available Not Available Not Avai lable ammonium lactate 12 % lotion Apply to [...] mcg tablet TAKE 1 TABLET BY MOUTH ONCE DAILY IN THE MORNING WITH 50MCG TABLET active Not Available Not Available No t Available valacyclovi r 1 gram tablet TAKE 1 [...] completed Not Available Not Available Not Available metronidazo le 500 mg tablet THE DAY BEFORE SURGERY TAKE 1 TABLET BY MOUTH AT 1PM, 2PM, AND 10PM 04/07 completed Not Available Not Available Not Available [...] TAKE 1 TABLET BY MOUTH TWICE DAILY 04/07 completed Not Available Not Available Not Available [...] Not Available Not Available Not Available carvedilol 3.125 mg tablet TAKE 1 TABLET BY MOUTH TWICE DAILY active Not Available Not Available No t Available ondansetron 8 mg disintegrat ing tablet TAKE 1 TABLET BY MOUTH ONCE FOR 1 DOSE THE DAY BEFORE SURGERY AT 11AM TO PREVENT NAUSEA active Not Available Not Available No t Available levothyroxi ne 25 mcg tablet 02/18 completed Not Available Not Available Not Available Macrobid 100 mg capsule Take 1 capsule every 12 hours by oral route for 3 days. 05/27 completed Not Available Not Available Not Available [...] mcg tablet TAKE 1 TABLET BY MOUTH ONCE DAILY IN THE MORNING WITH 300MCG TABLET active Not Available Not Available No t Available bisacodyl 10 mg rectal suppository 1 pr [...] TOPICALLY TO THE AFFECTED AREA TWICE DAILY 10/01 /2024 completed Not Available Not Available Not Available Gentle Laxative (bisacodyl) 5 mg tablet,mary yed release THE DAY BEFORE SURGERY TAKE 2 TABS AT 10AM WITH 8 OZ OF CLEAR LIQUID. AT 12PM, TAKE 2 MORE TABLETS WITH 8 OZ OF CLEAR LIQUID active Not Available Not Available No t Available levothyroxi ne 150 mcg tablet TAKE 1 TABLET BY MOUTH ONCE DAILY 04/07 completed Not Available Not Available Not Available [...] WEEKLY IN THE MORNING x 90 days 04/07 completed Not Available Not Available Not Available polyethylen e glycol 3350 17 gram/dose oral powder TAKE 238 G BY MOUTH ONCE FOR 1 DOSE THEN DAY BEFORE SURGERY. MIX 238 GRAMS MIRALAX WITH 64 OZ CLEAR LIQUID. 11 AM BEGIN DRINKING MIRALAX 8 OZ EVERY 15 MINUTES UNTIL FINISHED active Not Available Not Available No t Available neomycin 500 mg tablet THE DAY BEFORE SURGERY TAKE 2 TABLETS BY MOUTH AT 1PM, 2PM, AND 10PM active Not Available Not Available No t Available albuterol sulfate HFA 90 mcg/actuati on aerosol inhaler Inhale 2 puffs 6 4hrs prn 2023 active Not Available Not Available Not Avai lable oxybutynin chloride 5 mg tablet 05/04 completed Not Available Not Available Not Available ondansetron 4 mg disintegrat ing tablet PRN 08/30 completed Not Available Not Available Not Available cefdinir 300 mg capsule TAKE 1 CAPSULE BY MOUTH TWICE DAILY 04/07 completed Not Available Not Available Not Available losartan 100 mg tablet TAKE 1 TABLET BY MOUTH ONCE DAILY active Not Available Not Available No t Available metformin ER 500 mg tablet,exte nded [...] Not Available Not Available No t Available peg 3350-electr olytes 236 gram-22.74 gram-6.74 gram-5.86 gram solution TAKE DIRECTED active Not Available Not Available No t Available Bystolic 10 mg tablet Take 1 tablet [...] verbal numeric rating [Score] - Reported Systolic And Diastolic Provider Name and Address Organization Details Last Updated DateTime 5 154.94 cm 48.4 kg/m2 890023. 65 g 97.6 [degF] 73 /min 96 % 96 % 0 144/80 mm[Hg] Brenda Estrada MA [facility] 5 11:37:46 Date Recorded Body height Heart rate Oxygen saturation Oxygen saturation in Arterial blood by Pulse oximetry Body mass index (BMI) Body weight Systolic And Diastolic Provider Name and Address Organization Details Last Updated DateTime 5 154.94 cm 72 /min 97 % 97 % 49.5 kg/m2 439417. 2 g 142/78 mm[Hg] Mirta Sanchez Gasper [place] [employer] [facility] 5 11:24:47 Date Recorded Body height Body mass index (BMI) Body weight Body temperature Heart rate Oxygen saturation Oxygen saturation in Arterial blood by Pulse oximetry Systolic And Diastolic Provider Name and Address Organization Details Last Updated DateTime 5 154.94 cm 46.3 kg/m2 509143. 13 g 97.8 [degF] 83 /min 94 % 94 % 130/88 mm[Hg] Hermes Oliver Gasper [place] [employer] [facility] [employer] [facility] 5 10:33:07 Date Recorded Body height Body mass index (BMI) Body weight Body temperature Heart rate Oxygen saturation Oxygen saturation in Arterial blood by Pulse oximetry Pain severity - 0-10 verbal numeric rating [Score] - Reported Systolic And Diastolic Provider Name and Address Organization Details Last Updated DateTime 4 154.94 cm 52.3 kg/m2 970789. 09 g 96.6 [degF] 78 /min 93 % 93 % 0 130/78 mm[Hg] Brenda Estrada MA [place] [employer] [facility] 4 11:16:04 Social History Question Answer Notes LastModified by Organizat ion Details LastModified Time Tobacco Smoking Status Never Smoker Madeleine Edis geller [facility] 05/05/2023 10:22:28 What Is Your Level Of Caffeine Consumption? None [id number] Information not available 10/02/2022 How Much Tobacco Do You Chew? None [id number] Information not available 10/02/2022 In The 14 Days Before Symptom Onset, Have You Had Close Contact With A Laboratory-confirm ed COVID-19 While That Case Was Ill? No [email or web address] Information n ot available 05/05/2023 In The 14 Days Before Symptom Onset, Have You Had Close Contact With A Person Who Is Under Investigation For COVID-19 While That Person Was Ill? No [email or web address] Information not available 05/05/2023 What Type Of Diet Are You Following? REGULAR [id number] Information not available 10/02/2022 Which Illicit Or Recreational Drugs Have You Used? None [email or web address] Information not available 05/05/2023 Have There Been Any Changes To Your Family Or Social Situation? No Information no t available 05/04/2024 Are There Any Guns Present In Your Home? No [email or web address] Information not available 05/05/2023 Do You Use Insect Repellent Routinely? No [email or web address] Information not available 05/05/2023 Where Do You Live? Apartment [email or web address] Inform ation not available 05/05/2023 What Was The Date Of Your Most Recent Tobacco Screening? 08/31/2024 Information not available 08/31/2024 How Many Children Do You Have? 0 Information not available 05/04/2024 Do You Have Any Pets? No [email or web address] Information not available 05/05/2023 What Is Your Relationship Status? Information not available 05/04/2024 Do You Use Your Seat Belt Or Car Seat Routinely? Yes Information not available 05/05/2023 Do You Have Smoke And Carbon Monoxide Detectors In Your Home? Yes Information not available 05/05/2023 Are You Passively Exposed To Smoke? Yes [email or web address] Information no t available 05/05/2023 Are There Any Smokers In Your House? Yes [email or web address] Information not available 05/05/2023 How Much Tobacco Do You Smoke? No MIGRATION.[id number] Information not available 10/02/2022 Do You Participate In Social Media? Yes [email or web address] Information not available 05/05/2023 Do You Use Sunscreen Routinely? Yes [email or web address] Information not available 05/05/2023 Has Tobacco Cessation Counseling Been Provided? No Information not available 05/05/2023 Have You Recently Traveled Abroad? No [email or web address] Information not available 05/05/2023 Do You Have Any Dietary Restrictions? No [email or web address] Information not available 05/05/2023 Sex: Female Functional Status Question Answer Note LastModified by Organizat ion Details LastModified Time Do you use any illicit or recreational drugs? No [email or web address] Information not available 05/05/2023 Do you or have you ever used any other forms of tobacco or nicotine? No [email or web address] Information not available 05/05/2023 What is your level of alcohol consumption? None MIGRATION.[id number] Information not available 10/02/2022 Do you or have you ever used smokeless tobacco? Never used smokeless tobacco MIGRATION.[id number] 0783 Information not available 10/02/2022 Are you currently employed? 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 Never used electronic cigarettes [email or web address] Information not available 05/05/2023 What is your exercise level? Occasional MIGRATION.[id number] 4533 Information not available 10/02/2022 Mental Status Question Answer Note LastModified by Organization D etails LastModified Time Do you feel stressed (tense, restless, nervous, or anxious, or unable to sleep at night)? [id number] [email or web address] Information not available 05/05/2023 Family History Relationship Description Onset Age of this Age Resolved Age Notes LastModified by Organization Details LastModified Time Mother Diabetes mellitus [id number] Not available 10/02/2022 04:29:37 Mother Hypertensive disorder [id number] [id number] Not available 10/02/2022 04:29:37 Medical History Condition Response HEADACHES/MIGRAINES N OBESITY Y GERD/NAUSEA Y HYPOTHYROIDISM Y SKIN PROBLEMS Y HAVE YOU BEEN HOSPITALIZED OR SEEN IN [facility] ER IN THE PAST YEAR ? [...] 30 mcg/0.3 mL dose 1 completed Lisa Reyna [employer] [place] [employer] [facility] 03/24/2023 10:00:15 Influenza, split virus, trivalent, preservative 1 completed Lisa geller [employer] [facility] 03/24/2023 10:00:15 COVID-19, mRNA, LNP-S, PF, 30 mcg/0.3 mL dose 1 completed Puja Jessica APRN [address] [facility], [facility] [address], [place], [address], [employer] [facility] 05/04/2024 09:03:38 COVID-19, mRNA, LNP-S, PF, 30 mcg/0.3 mL dose 1 completed Puja Jessica APRN [address] [facility], [facility] [address], [place], [address], [facility] [employer] [facility] 05/04/2024 09:03:38 Influenza, split virus, quadrivalent, PF 2 completed Not Available [facility] 03/17/2023 22:15:54 Influenza, split virus, quadrivalent, PF 3 completed Shilpa Grady MD [address] [facility], [facility] [address], [place], [address], [employer] 05/07/2023 08:34:26 Influenza, split virus, trivalent, PF 4 completed Marsha Hernadez [facility], [employer] 05/04/2024 11:56:05 Past Encounters Encounter ID Performer Location Encounter Start Date Encounter Closed Date Diagnosis/Indication Diagnosis SNOMED-CT Code Diagnosis ICD10 Code Diagnosis IMO Codes Diagnosis Note [id number] ULISES Alvarez [facility] Primary Care [place] [address] [place] [address] 10/19/2020 00:00:00 10/19/2020 11:05:39 [id number] ULISES Alvarez [facility] Primary Care [place] [address] [place] [address] 11/22/2020 00:00:00 11/23/2020 20:56:42 [id number] Shilpa Grady MD [facility] Primary Care [place] [address] [place] [address] 01/30/2021 00:00:00 01/30/2021 20:13:28 [id number] Shilpa Grady MD [facility] Primary Care [place] [address] [place] [address] 03/01/2021 00:00:00 03/01/2021 12:59:36 [id number] Shilpa Grady MD [facility] Primary Care [place] [address] [place] [address] 10/10/2021 00:00:00 10/10/2021 16:41:05 [id number] DONG Jimenez [facility] Primary Care [place] [address] [place] [address] 12/18/2021 00:00:00 12/18/2021 18:14:08 [id number] [facility] _ATHENA_M IGRATION_ DEFAULT_1 _1 , 01/04/2022 00:00:00 01/04/2022 10:34:50 [id number] [facility] _ATHENA_M IGRATION_ DEFAULT_1 _1 , 01/10/2022 00:00:00 01/10/2022 18:30:11 [id number] ULISES Alvarez [facility] [place] [address] [place] [address] 02/12/2022 00:00:00 02/12/2022 18:05:46 [id number] [facility] [place] [address] [place] [address] 02/18/2022 00:00:00 02/19/2022 11:10:56 [id number] ULISES Alvarez [facility] [place] [address] [place] [address] 03/08/2022 00:00:00 03/08/2022 13:45:35 [id number] DONG Jimenez [facility] [place] [address] [place] [address] 05/06/2022 00:00:00 05/06/2022 12:14:58 [id number] Shilpa Grady MD [facility] Primary [facility] [place] [address] [place] [address] 07/19/2022 00:00:00 07/19/2022 18:24:30 [id number] Neeru Romero MD [facility] [place] [address] [place] [address] 09/04/2022 00:00:00 09/04/2022 16:29:19 [id number] ULISES Alvarez [facility] [place] [address] [place] [address] 10/09/2022 15:46:44 10/29/2022 03:54:51 [id number] DONG Jimenez [facility] Primary Care [facility] [address] [facility] [address] [place] [address] 10/18/2022 15:26:32 10/18/2022 16:39:49 Dysuria 98577454 R30.0 Advised to push fluids. Will do second round of tx with cipro. If no improvemen t, will have her come back next week to give urine sample to be able to send for culture. Prediabetes 676232972 R7 3.03 Pt. would like to try ozempic for weight loss.Will send script to see if we can get approval. [id number] Shilpa Grady MD [facility] Primary Care [address] [place] [address] 02/03/2023 09:24:40 02/03/2023 11:38:56 Cellulitis of lower limb 222425940 L03.119 Will do course of bactrim, advised to elevate.Th ere is erythema but improving, mild warmth.She is aware of signs/symp toms to seek immediate evaluation . Eczema 45328142 L30.9 Bilateral legs, worse on right side.She does states legs are very itchy and I think her scratching is potentiall y causing increased risk for the cellulitis . Advised to use strong emollient daily and will do topical steroid.If still no improvemen t, will send to dermatolog y to evaluate further. Morbid obesity 532430853 E66.01 Discussed healthy eating/lif estyle.We tried to get ozempic covered but was denied by insurance. She inquired about phentermin e but advised would not be safe until her BP is under better control and she is compliant with her medication . Hypertensive disorder 38 823018 I10 Pt. states she has not been taking BP medication . Advised she needs to pick it up and take it on a regular basis as prescribed . [id number] Shilpa Grady MD [facility] Primary Care [facility] [address] [facility] [address] [place] [address] 02/13/2023 16:10:05 02/13/2023 17:36:17 Cellulitis of lower limb 039617758 L03.119 Advised to finish current course of abx. Symptoms do appear to be improving. She states while at ER they were not concerned about her legs and all work-up was unremarkab le. 02/03/23: Will do course of bactrim, advised to elevate.Th ere is erythema but improving, mild warmth.She is aware of signs/symp toms to seek immediate evaluation . Hypertensive disorder 38 384194 I10 Will continue to monitor, has not been taking medication correctly. Went over medication today. Edema of l ower extremity 427419374 R60.0 Will do short course of lasix to help pull of fluid. Continue elevation. Reduce sodium. [id number] Adry Arreguin, ULISES [facility] Primary Care [facility] [address] [facility] [address] [place] [address] 03/24/2023 09:42:13 03/24/2023 10:37:41 Recurrent cellulitis 706537913 L03.90 Acute over chronicPoo rly controlled despite 2 rounds of abx. Will give round of doxycyclin e, but sx may actually represent worsening of PVD. Essential hypertension 39632030 I10 Not in good controlPt reports she [...] continue to monitor closely Peripheral vascular disease 104049428 I73.9 ChronicNot well controlled Suspect pts recurrent [...] start Montelukas t or try combo inhaler. 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.[address] scan showed left congenital atretic kidneyNeed to consider this issue if persistent difficulty managing htn [id number] Shilpa Grady MD [facility] Primary Care [address] [place] [address] 05/30/2023 16:18:14 06/04/2023 15:57:38 [id number] Shilpa Grady MD [facility] Primary Care [address] [place] [address] 06/17/2023 09:29:27 06/19/2023 17:13:33 Hypothyroidism 13961446 E03.9 Prediabetes 605882953 R7 3.03 Cobalamin deficiency 190 607550 E53.8 Screening mammography 24 726649 Z12.31 Cramp in lower limb 4499 97458 R25.2 [id number] Shilpa Grady MD [facility] Primary [address] [place] [address] 09/16/2023 09:18:21 09/16/2023 09:52:18 [id number] Shilpa Grady MD [facility] Primary [address] [place] [address] 12/16/2023 09:22:50 12/16/2023 09:49:42 [id number] [place] [facility] [place] [address] [place] [address] 05/04/2024 10:56:58 05/04/2024 12:05:05 Cobalamin deficiency 056822545 E53.8 Hypothyroidism 28111960 E03.9 Prediabetes 282684203 R7 3.03 Dyslipidemia 262503758 E 78.5 Hepatitis C screening 41 9411953 Z11.59 Administra tion of influenza vaccine 98249505 Z23 Screening mammography 24 990228 Z12.31 Screening for malignant neoplasm of colon 808121998 Z12.11 Lymphedema of bilateral lower limbs 7518307152 6249314 I89.0 Hypertensive disorder 38 527203 I10 Constipation 03019694 K5 9.00 Renewal of prescription 650994036 Z76.0 Cellulitis of lower limb 006591535 L03.119 Gastroesop hageal reflux disease 258424847 K21.9 [id number] Angi villanueva MD [facility] Internal Med [facility] [address] [address] 08/31/2024 11:25:47 08/31/2024 11:45:30 Colorectal cancer detected by DNA-based stool screening 887607737 R19.5 Hypothyroidism 86383318 E03.9 [id number] Alessia Segura MD [facility] General Surgery [address] [address] 10/06/2024 11:23:27 10/06/2024 12:16:06 Colorectal cancer detected by DNA-based stool screening 306514611 R19.5 [id number] VERA Lima [facility] Primary Care [address] [place] [address] 04/07/2025 10:21:15 04/07/2025 10:50:34 Adult health examination 383229370 Z00.00 [id number] Discussed medication compliance and routine follow up.Discuss ed healthy diet and routine exercise.Esther nelsonwed vaccine records and made recommenda tions as needed.Enc ouraged annual eye and dental exams, as well as twice yearly dental cleanings. Will check screening labs as listed below. Screening mammography 24 516874 Z12.31 [id number] Hypertensive disorder 38 203713 I10 130/88Disc ussed DASH diet and routine exercise. Hyperlipidemia 46201835 E78.5 Prediabetes 337068457 R7 3.03 Hypothyroidism 46243935 E03.9 Vitamin D deficiency 347 41035 E55.9 Vitamin B1 2 deficiency (non anemic) 40191306 E53.8 Gastroesop hageal reflux disease 355020138 K21.9 Body mass index 40+ - severely obese 446717397 E66.01 57720218 Weight: 245 poundsBMI: 46.3Discus sed healthy diet and routine exercise. [id number] VERA Lima [employer] [facility] Primary Care [facility] [address] [facility] [address] [place] [address] 05/17/2025 15:54:18 05/17/2025 16:07:03 Health Concerns Section Related Observation LastModified by Organization Detai ls LastModified Time None Recorded Concern Status LastModified by Organization Details LastModified Time None Recorded Advance Directives Directive None Recorded Payers Insurance Date Sequence Insurance Name Policy Number Policy Bowers Covered Member ID Bowers Member ID Guarantor Name 05/04/2024 1 *SELF PAY* simon Stewart Senior 10/05/2024 1 [employer] [place] (PPO) Kassy Stewart [facility] [id number] Kassy Stewart [facility] 06/01/[address] [facility] (PPO[place] [id number] Kassy Stewart [facility] [id number] Kassy Stewart [facility] 10/05/2024 2 [facility] (PPO) Kassy Daniels [id number] Kassy Stewart [facility] 10/05/2024 1 [facility] Kassy [facility] [id number] Kassy Stewart [facility] Notes Date Note Type Note Provider Name and Address Organization Details Recorded Time 05/04/2024 text/html Tye presents today to establish care as her provider has left the area. She has lymphedema that is being treated by a cardiovascular surgeon. She states that her insurance will not pay for her to have physical therapy. She is asking for a functional architect consult. Puja Jessica, [employer] [address] [facility], [facility] [address], [place], [address], [facility] 05/04/2024 15:34:29 08/31/2024 text/html Tye presents today for 3 month follow up. She recently had a positive cologuard which she has been referred to GI. She states that she use to have an seam closer but has not seen one in a while. 4Cliz presents today to establish care as her provider has left the area. She has lymphedema that is being treated by a cardiovascular surgeon. She states that her insurance will not pay for her to have physical therapy. She is asking for a functional architect consult. Puja Jessica APRN [address], [place], [address], [employer] 08/31/2024 12:01:17 10/06/2024 text/html ROS as noted in the HPI PT WAS SEEN IN THE OFFICE TODAY FOR A POSITIVE COLOGUARD TEST . . PT DENIES ABD PAIN /N/V/D/BLEEDING /WT LOSS/ NSAIDS . Alessia Segura MD [address] [place], [place], [address], [employer] 10/06/2024 13:51:33 04/07/2025 text/html Patient is a 54 year old female that presents to the office to establish care. Patient was previously seeing Dr. Grady. Patient reports she is doing well and has no concerns at this time. Patient sees Cardiology twice a year. labs- due (07/2025)WWE- awareMammogram- orderedColonoscopy- UTD (11/2024)Flu- recommendedCovid- recommendedTdap- aware VERA Lima [address], [place], [address], [employer] 04/13/2025 14:22:22 OBGyn Episode No OBEpisode recorded.
--- OUTSIDE RECORDS SUMMARY | 2025-06-06 22:11 | XMS_ITS | Clinical Summary ---
Author Organization [facility] Address [facility]ly [facility] [place] [address] Care Team Providers Care Monkey Breeder Name Role Phone Shilpa Grady MD Primary Care Provider [phone] Allergies Active Allergy Reactions Criticality Noted Date [...] 07/21/2024 Secondary lymphedema 05/21/2023 Hypertensive heart disease with heart failure Bilateral lower extremity edema 02/07/2020 LUJAN (dyspnea on exertion) 02/07/2020 Unspecified urinary incontinence 06/03/2016 Essential hypertension 01/17/2015 Overview (09/16/2024): Essential hypertension Immunizations Immunization Administration Dates Next Due Influenza (Generic) 06/16/2021 [...] Sex Assigned at Female 09/16/2024 8:20 AM IT OPERATIONS MANAGER Legal Sex Female 1:14 PM CDT Gender Identity Not on file Sexual Orientation Not on file Last Filed Vital Signs Vital Sign Reading Time Taken Comments Blood Pressure 170/100 09/16/2024 9:01 AM IT OPERATIONS MANAGER Pulse 86 09/16/2024 9:01 AM IT OPERATIONS MANAGER Temperature - - Respiratory Rate - - Oxygen Saturation - - Inhaled Oxygen Concentration - - Weight 118 kg (260 lb 3.2 oz) 09/16/2024 9:01 AM IT OPERATIONS MANAGER Height 154.9 cm (5' 1) 09/16/2024 9:01 AM IT OPERATIONS MANAGER Body Mass Index 49.16 09/16/2024 9:01 AM IT OPERATIONS MANAGER Plan of Treatment Health Maintenance Due Date Last Done Comments Cervical Cancer Screening Pa p Smear (Age 30 to 64) Every 3 Years 1969 Colorectal Cancer Screening Colonoscopy (10 Years) 1969 Annual Physical 1972 Hepatitis C 11/14/1987 DTaP, Tdap and Td Vaccines ( 1 - Tdap) 1988 Hepatitis B Vaccines (1 of 3 - 19+ 3-dose series) 1988 Pneumococcal Vaccine: 50+ Years (1 of 2 - PCV) 1988 Cervical Cancer Screening Pa p with HPV Testing (Age 30 to 64) Every 5 Years 11/14/1999 Cervical Cancer Screening wi th HPV 11/14/1999 Mammogram Screening 2009 Zoster Vaccines (1 of 2) 11/14/2019 COVID-19 Vaccine (2 - 2024-2 6 season) 2025 08/01/2021 Influenza Adult (#1) 2025 05/05/2023, 07/19/2022, 06/16/2021 Hepatitis A Vaccines Aged Out No long er eligible based on patient's age to complete this topic Meningococcal B Vaccine Aged Out No l onger eligible based on patient's age to complete this topic Meningococcal Vaccine Aged Out No jadyn tanesha eligible based on patient's age to complete this topic RSV Immunizations Under 20 Months Aged Out No longer eligible b ased on patient's age to complete this topic Insurance Care Teams Monkey Breeder Relationship Specialty Start Date End Date Shilpa Grady MD [address] [place] [address] PCP - General FAMILY PRACTICE 07/02/23
--- OUTSIDE RECORDS SUMMARY | 2025-06-06 22:11 | XMS_ITS | Data Portability ---
Author Organization [facility] PARULNita Milton Address [address] [place] [address] Care Team Providers Care Yard Person Name Role Phone BRYAN SIERRAI Manager Life Insurance Assessment No assessment recorded. Plan of Treatment Reminders Order Date Submit Date Provider Last Modified By Organization Details Last Modified Time Details Appointments None recorded. Lab TSH + free T4, serum 2018 019 [facility], [address] [place] [address], [address], [place], [address], 9 06:19:51 pap, IG + HPV, cervical 2016 017 [facility], [address] [place] [address], [address], [place], [address], 7 06:06:11 bacterial vaginosis + vaginitis panel, vaginal 2016 017 [facility], [address] [facility], [address], [place], [address], 7 16:13:55 test, urine 2016 017 bronson In-Office Order, Internal Use Only DO Not Attach Compendium DO Not Attach Compendium, Do Not Delete/merge, [id number] 7 15:58:46 lipid panel, serum 2016 017 [email or web address], [address] [facility] [address], [address], [place], [address], 7 19:14:33 TSH + free T4, serum 2016 017 ezeu [facility], [address] [facility] [address], [address], [place], [address], 7 19:14:32 CMP, serum or plasma 2016 017 [facility]u [facility], [address], [address], [place], [address], 7 19:14:33 CBC 2016 017 [facility], [address] [facility] [address], [address], [place], [address], 7 19:14:32 urinalysis , dipstick 2016 017 ezeu In-Office Order, Internal Use Only DO Not Attach Compendium DO Not Attach Compendium, Do Not Delete/merge, [id number] 17:54:29 Referral gastroente rologist referral - Please call patient to schedule appt. Thank you 2016 017 mark López MD, [address] [place], [address], 17:36:44 Procedures None recorded. Surgeries None recorded. Imaging MAMMO, screening, bilateral 2016 017 [facility], [address], [address], [address], 12:02:35 Medication Orders Zithromax Z-Umberto 250 mg tablet 2018 019 [facility], [address], [place], [address], 9 17:32:30 Ventolin HFA 90 mcg/actuat ion aerosol inhaler 2018 019 [facility], [address] [place], [address], 9 17:32:28 levothyrox ine 300 mcg tablet 2017 018 [facility], [address] [place], [address], 8 17:15:13 Zithromax Z-Umberto 250 mg tablet [address] [facility], [address] [place], [address], 9 17:10:05 albuterol sulfate 2.5 mg/3 mL (0.083 %) solution for nebulizati on [address] [facility], [address] [place], [address], 9 17:10:22 oxybutynin chloride 5 mg tablet 2016 017 [facility], [address] [place], [address], 7 17:19:58 omeprazole 20 mg capsule,de layed release [address] [facility], [address] [place], [address], 9 17:09:31 Reglan 10 mg tablet [address] [facility], [address] [place], [address], 9 17:09:24 Patient TargetsNo targets recorded. Patient Instructions Encounter Date Encounter Id Patient Instructions Last Modified By Organization Details Last Modified Time 04/17/2017 [id number] mammogram: about this test bronson Not available 04/17/2017 15:58:46 06/11/2017 [id number] nausea and vomiting: care instructions [email or web address] Not available 06/12/2017 11:58:54 When You Want to Lose Weight: Care Instructions [email or web address] Not available 06/12/2017 11:58:55 learning about high blood pressure cschindewolf Not available 06/12/2017 11:58:54 10/08/2017 [id number] bronchitis: care instructions si Not available 10/08/2017 17:01:14 08/11/2018 [id number] bronchitis: care instructions sieh Not available 08/11/2018 17:24:22 Reason for Referral [facility]. Thank you Referring Physician: Charli Anderson, Internal Medicine, Encounter Date: 06/11/2017 Results Created Date Observation Date Name Description Value Unit Range Abnormal Flag Note LastModifiedBy Organization Detail LastModifiedTime 04/17/2004/17/2017 urina lysis , dipst ick Leukocytes Negati ve Not Available In-Office Order Internal Use Only DO Not Attach Compendium DO Not Attach Compendium, Do Not Delete/merge, [id number] 04/17/2017 16:11:11 04/17/2004/17/2017 urina lysis , dipst ick Nitrite negati ve Not Available In-Office Order Internal Use Only DO Not Attach Compendium DO Not Attach Compendium, Do Not Delete/merge, [id number] 04/17/2017 16:11:11 04/17/20 17 04/17/2017 urina lysis , dipst ick Urobilinogen .2 Not Available In-Of fice Order Internal Use Only DO Not Attach Compendium DO Not Attach Compendium, Do Not Delete/merge, [id number] 04/17/2017 16:11:11 04/17/2004/17/2017 urina lysis , dipst ick Protein Negati ve Not Available In-Office Order Internal Use Only DO Not Attach Compendium DO Not Attach Compendium, Do Not Delete/merge, [id number] 04/17/2017 16:11:11 04/17/20 17 04/17/2017 urina lysis , dipst ick pH 7.0 Not Available In-Office Order Internal Use Only DO Not Attach Compendium DO Not Attach Compendium, Do Not Delete/merge, [facility] 04/17/2017 16:11:11 04/17/20 17 04/17/2017 urina lysis , dipst ick Blood Negati ve Not Available In-Office Order Internal Use Only DO Not Attach Compendium DO Not Attach Compendium, Do Not Delete/merge, [facility] 04/17/2017 16:11:11 04/17/20 17 04/17/2017 urina lysis , dipst ick Specific [place] 1.015 Not Available In-Off ice Order Internal Use Only DO Not Attach Compendium DO Not Attach Compendium, Do Not Delete/merge, [facility] 04/17/2017 16:11:11 04/17/20 17 04/17/2017 urina lysis , dipst ick Ketone Negati ve Not Available In-Office Order Internal Use Only DO Not Attach Compendium DO Not Attach Compendium, Do Not Delete/merge, [id number] 04/17/2017 16:11:11 04/17/20 17 04/17/2017 urina lysis , dipst ick Bilirubin Negati ve Not Available In-Office Order Internal Use Only DO Not Attach Compendium DO Not Attach Compendium, Do Not Delete/merge, [id number] 04/17/2017 16:11:11 04/17/20 17 04/17/2017 urina lysis , dipst ick Glucose Negati ve Not Available In-Office Order Internal Use Only DO Not Attach Compendium DO Not Attach Compendium, Do Not Delete/merge, 04/17/2017 16:11:11 04/17/20 17 04/17/2017 pregn nataliia test, urine HCG negati ve Not Available In-Office Order Internal Use Only DO Not Attach Compendium DO Not Attach Compendium, Do Not Delete/merge, [facility] 04/17/2017 15:40:12 04/17/20 17 04/20/2017 bacte rial vagin osis + vagin itis panel , vagin al chlamydia trachomatis, VANESSA Negati ve negati ve Not Available [facility] ([facility]) [address] [place], [address], 04/21/2017 16:13:54 04/17/20 17 04/20/2017 bacte rial vagin osis + vagin itis panel , vagin al neisseria gonorrhoeae, VANESSA Negati ve negati ve Not Available [facility] ([facility]) [address] [facility], [place], [address], 04/21/2017 16:13:54 04/17/20 17 04/21/2017 bacte rial vagin osis + vagin itis panel , vagin al atopobium vaginae Low - 0 score Not Available [facility] ([facility]) [address] [place] [address], [address], 04/21/2017 16:13:54 04/17/20 17 04/21/2017 bacte rial vagin osis + vagin itis panel , vagin al bvab 2 Low - 0 score Not Available [facility] ([facility]) [address] [place] [address], [address], 04/21/2017 16:13:54 04/17/20 17 04/21/2017 bacte rial [...] is not neces jackson. Not Available [facility] ([facility]) [address] [place], [address], 04/21/2017 16:13:54 04/17/20 17 04/21/2017 bacte rial vagin osis + vagin itis panel , vagin al dilan albicans, VANESSA Negati ve negati ve Not Available [facility] ([facility]) [address] [place], [address], 04/21/2017 16:13:54 04/17/20 17 04/21/2017 bacte rial [...] is not neces jackson. Not Available [facility] ([facility]) [address] [facility], [place], [address], 04/21/2017 16:13:54 04/17/20 17 04/21/2017 bacte rial vagin osis + vagin itis panel , vagin al trich vag by VANESSA Negati ve negati ve Not Available [facility] ([facility]) [address] [place], [address], 04/21/2017 16:13:54 04/17/20 17 04/22/2017 pap, IG + HPV, cervi courtney diagnosis: Commen t NEGAT RUPERTO FOR INTRA EPITH ELIAL LESIO N AND ARETHA CASTRO . CELLU LAR BELLE ES ASSOC IATED WITH INFLA MMATI ON ARE PRESE NT. Not Available [facility] ([facility]) [address] [place], [address], 04/26/2017 06:06:11 04/17/20 17 04/22/2017 pap, IG + HPV, cervi courtney specimen adequacy: Radha taylor Satis facto ry for evalu ation . Endoc ervic al and/o r squam ous metap lasti c cells (endo cervi courtney compo nent) are prese nt. Not Available [facility] ([facility]) [address] [place], [address], 04/26/2017 06:06:11 04/17/20 17 04/22/2017 pap, IG + HPV, cervi courtney clinician provided ICD10: Radha taylor Z01.4 19 Not Available [facility] ([facility]) [address] [place], [address], 04/26/2017 06:06:11 04/17/20 17 04/22/2017 pap, IG + HPV, cervi courtney performed by: Radha Galeano on, Cytot mike mancera t (ASCP ) Not Available [facility] ([facility]) [address] [place], [address], 04/26/2017 06:06:11 04/17/20 17 04/22/2017 pap, IG + HPV, cervi courtney . . Not Available [facility] ([facility]) [address] [place], [address], 04/26/2017 06:06:11 04/17/20 17 04/22/2017 pap, IG + HPV, cervi courtney note: [...] ts do occur . Not Available [facility] ([facility]) [address] [place], [address], 04/26/2017 06:06:11 04/17/20 17 04/22/2017 pap, IG + HPV, cervi courtney test methodology: Commen t This liqui d based ThinP rep(R ) pap test was madai kinsey with the use of an image guide nghia reinoso Not Available [facility] ([facility]) [address] [facility], [place], [address], 04/26/2017 06:06:11 04/17/20 17 04/25/2017 pap, IG + HPV, cervi courtney HPV aptima Negati ve negati ve This test detec ts fourt een high- risk HPV types (16/1 8/31/ 33/35 /39/4 5/ 51/52 /56/5 8/59/ 66/68 ) witho ut diffe renti ation . Not Available [facility] ([facility]) [address] [facility], [place], [address], 04/26/2017 06:06:11 08/11/19 19 08/12/2018 TSH + free T4, serum TSH 34.530 uIU/m L 0.450- 4.500 above high normal Not Available [facility] ([facility]) [address] [facility], [place], [address], 08/12/2018 06:19:51 08/11/1908/12/2018 TSH + free T4, serum T4,free(dire ct) 1.16 NG/dL 0.82-1 .77 Not Available [facility] ([facility]) [address] [place], [address], 08/12/2018 06:19:51 03/17/20 17 US, duncan laddavon r No observ ation record ed. si Not Available 2016 12:34:45 03/21/[address], abdom en + pelvi s, w/ contr ast No observ ation record ed. sieh Not Available 2016 11:28:07 04/24/20 17 04/24/2017 US, abdom en No observ ation record ed. [facility] (Imaging) [address], [place], [address], 04/25/2017 14:45:41 05/22/20 17 05/21/2017 MAMMO , scree shima, bilat eral No observ ation record ed. [facility] (Imaging) [address], [place], [address], 05/22/2017 15:48:32 05/28/20 17 MAMMO , scree sihma, bilat eral No observ ation record ed. [email or web address] Not Available 06/02 12:05:28 10/01/19 18 XR, chest , 2 view No observ ation record ed. [facility] Not Available 2017 15:44:36 05/04/20 18 XR, abdom en No observ ation record ed. [facility] Not Available 2017 15:51:33 05/04/20 18 CT, abdom en + pelvi s, w/ contr ast No observ ation record ed. [facility] Not Available 2017 15:51:33 Result Notes None recorded. Problems Name Problem SNOMED Code Status Onset Date Resolution Date Notes Provider Name and Address Organization Details Recorded Time Essential hypertension 77859954 Active Carlos Grimaldo null, [place] - [facility] 6 15:27:55 Hypothyroidism 12331591 Active Charli Anderson MD Attn: Bina harris,[address] [facility], [place], [address] [facility] [place] - [facility] 6 16:23:58 Allergy Active Carlos [place] [facility] 6 15:27:55 Restless legs syndrome 10405694 Active [place] [facility] 6 15:27:55 Cellulitis of face 731102006 Active [place] Gr[place] [facility] 6 15:27:55 Female urinary stress incontinence 17242293 Active [place] [facility] 6 15:32:24 Urinary incontinence 965541950 Active Carlos Gr[place] [facility] 6 15:27:55 Chronic sciatica 162165082 Active Charli Anderson MD Attn: Bina harris,[address] [place], [address], [place] [facility] 6 15:38:31 Lower urinary tract infectious disease 5398482 Active Carlos Gr[place] [facility] 6 15:27:55 Mammography abnormal 695635192 Active [place] Gr[place] [facility] 6 14:29:35 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 Procedures Surgical History Date Name Laterality Status Provider Name and Address Organization Details Recorded Time 04/01/20 16 Date of Last Pap Smear completed Kirstie Peres MA [facility] 04/01/2016 15:12:27 02/26/20 16 Most Recent Mammogram completed NOHEMY Belcher [facility] 04/17/2017 15:27:20 08/04/18 91 Orthopedic Surgery completed NOHEMY Belcher [facility] 01/27/2015 15:09:49 08/04/18 89 Appendectomy completed NOHEMY Belcher COUNTS [facility]CLUDE 234 BEDS AT [facility] 01/27/2015 15:07:06 08/04/18 77 Anesth ear surgery completed NOHEMY Belcher [facility] 01/27/2015 15:07:56 Imaging Results None recorded. Procedure Notes None recorded. Medical Equipment None Reported. Allergies Allergen ID Allergen Name Allergen Category Reaction Reaction Severity Criticality Documentation Date Start Date Code Code System Note Provider Name and Address Organization Details Recorded Time 71901 lisinopri l medicatio n angioedem a severe Not available 11/23/2014 68842 RxNorm swell ing to legs NOHEMY Belcher, [place] - COUNTS INCLUDE 234 BEDS AT THE [facility] 5 15:00:37 49109 morphine medicatio n vomiting severe Not available 04/01/2016 7052 RxNorm Kirstie NOHEMY Peres null, [place] - [facility] 6 15:11:10 Medications Name Sig Start Date Stop Date [...] Available Not Available Not Available Fluarix Quad [id number] (PF) 60 mcg (15 mcg x 4)/0.5 mL IM syringe 10/08 completed Not Available Not Available Not Available Vitals Date Recorded Body height Body mass index (BMI) Body weight Body temperature Oxygen saturation Oxygen saturation in Arterial blood by Pulse oximetry Heart rate Systolic And Diastolic Provider Name and Address Organization Details Last Updated DateTime 9 153.035 cm 43.2 kg/m2 750628. 53 g 97.9 [degF] 96 % 96 % 79 /min 154/104 mm[Hg] Severo Sanders MA [facility] 9 17:14:26 Date Recorded Body height Body mass index (BMI) Body weight Body temperature Oxygen saturation Oxygen saturation in Arterial blood by Pulse oximetry Heart rate Systolic And Diastolic Provider Name and Address Organization Details Last Updated DateTime 8 153.035 cm 41.4 kg/m2 17130.7 7 g 97.5 [degF] 96 % 96 % 97 /min 164/100 mm[Hg] Severo Sanders MA [facility] 8 16:52:49 Date Recorded Body height Body mass index (BMI) Body weight Body temperature Oxygen saturation Oxygen saturation in Arterial blood by Pulse oximetry Heart rate Systolic And Diastolic Provider Name and Address Organization Details Last Updated DateTime 7 153.035 cm 41.2 kg/m2 96953.4 6 g 98.2 [degF] 98 % 98 % 76 /min 144/90 mm[Hg] Severo Sanders MA [facility] 7 16:55:18 Date Recorded Body height Body mass index (BMI) Body weight Systolic And Diastolic Provider Name and Address Organization Details Last Updated DateTime 04/17/2017 153.035 cm 41.1 kg/m2 74416.58 g 124/78 mm[Hg] Kirstie Peres MA [facility] 04/17/2017 15:35:25 Date Recorded Body height Body mass index (BMI) Body weight Body temperature Oxygen saturation Oxygen saturation in Arterial blood by Pulse oximetry Heart rate Systolic And Diastolic Provider Name and Address Organization Details Last Updated DateTime 7 153.035 cm 41.2 kg/m2 67685.4 6 g 97.9 [degF] 100 % 100 % 71 /min 156/92 mm[Hg] Severo Sanders MA [facility] 7 17:05:55 Social History Question Answer Notes LastModified by Organizat ion Details LastModified Time Tobacco Smoking Status Never Smoker Severo Sanders MA null, [facility] 11/23/2014 14:53:47 Do You Have An Advance Directive? No Information not available 01/27/2015 Is Blood Transfusion Acceptable In An Emergency? Yes Information not available 01/27/2015 What Is Your Level Of Caffeine Consumption? Moderate Information not available 01/27/2015 How Much Tobacco Do You Chew? None Information not available 01/27/2015 What Type Of Diet Are You Following? REGULAR Information not available 01/27/2015 Education 12 Information no t available 01/27/2015 Live Alone Or With Others? [...] ion Details LastModified Time What is your level of alcohol consumption? None Information not available 01/27/2015 Are you currently employed? 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 Moderate Information not available 01/27/2015 Mental Status None recorded. Family History Relationship Description Onset Age of this Age Resolved Age Notes LastModified by Organization Details LastModified Time Mother Congestive heart failure 68 stroke , diabet ic Not available 04/01/2016 15:13:53 Medical History Condition Response Coronary Artery Disease N Blood Diseases N Kidney Cyst N Hyperthyroidism N MRSA N Blood Transfusion N Blood disorders N Emphysema N Depression N COPD N Blood Clots N Pneumonia N Peripheral Arterial Disease N Premature N Edema N TIA N Headaches/Migraines N Anxiety Disorder N Obesity N Polyps N Infertility N Acid Reflux (GERD) N Hematuria N Stroke N Neck Injury N Polio N Hospital Admission other than N Neurologic Disorder N Other Sleep Disorders N Rheumatoid Arthritis N Fibromyalgia N Abdominal Aortic Aneurysm Repair N Kidney Disease N Heart Conditions N Heart Disease/Heart Problems N Hospitalizations N Brain Tumors N Acne N Eating Disorder N Skin Problems N Constipation N Meningitis N Tuberculosis N Cerebral Palsy N Myocardial Infarction N Asthma N Substance Abuse N Peripheral Vascular Disease N Vertigo N Sleep Disorder N Cirrhosis N Pulmonary Embolism N Chicken Pox N Flomax Use Past or Present N Hematologic Disease N Anxiety/Depression N Thyroid Disease N Colon [...] Disorder N Colon Polyps N Heart Attack ([place]) N Diabetes N Cardiomyopathy N Blood Transfusions N Heart Problems/Murmur N Eye Trauma N Congestive Heart Failure (CHF) N Valvular Heart Disease N Hyperlipidemia N Double Vision N Abuse/Domestic Violence N Hepatitis B N Lupus N Epilepsy/Seizures N Reflux/GERD N Aneurysm N Bronchitis N Heart Disease N Hypertension Y Pre-Eclampsia N Heart Failure N Other Y Gout N [...] ICD10 Code Diagnosis IMO Codes Diagnosis Note [id number] Charli Anderson MD [facility] (Adult Med) [address] [place] [address] 11/23/2014 14:36:23 11/23/2014 15:10:23 Essential hypertension 00681033 Hypothyroidism 38669805 Allergy 117495233 [id number] Charli Anderson MD [facility] (Adult Med) [address] [place] [address] 12/30/2014 16:12:50 12/30/2014 16:54:22 Essential hypertension 31661403 Hypothyroidism 70080884 Restless l egs syndrome 77940589 Cellulitis of face 372619742 [id number] [facility] [address] [place] [address] 01/27/2015 14:27:08 01/27/2015 16:05:56 Gynecologic examination 73137590 Screening mammography 58663707 Female uri nary stress incontinence 49645699 Samples of Mybetriq given 25mg daily. [id number] [facility] [address] [place] [address] 03/01/2015 10:59:59 03/01/2015 13:11:48 Urinary incontinence 324047926 44 year old female with urinary urgency and occasional incontinen ce; empiricall y started on Myrbetriq 25 mg daily presenting for follow up. Patient states she had positive results but thought she would like to go up in dose if possible. Will increase to 50mg daily (samples given) will apply for P.A. with insurance. [id number] MD Maribeth Mendiola (Adult Med) [address] [place] [address] 04/25/2015 16:37:11 04/26/2015 16:37:06 Essential hypertension 00741101 Hypothyroidism 26028632 Restless l egs syndrome 58620895 Chronic sciatica 799367879 [id number] MD Maribeth Mendiola (Adult Med) [address] [place] [address] 0 10/30/2015 15:06:23 10/30/2015 18:19:28 Lower urinary tract infectious disease 6026852 N39.0 Essential hypertension 10525183 I10 Hypothyroidism 80764096 E03.9 Chronic sciatica 4303539 01 M54.30 [id number] MD Maribeth Mendiola (Adult Med) [address] [place] [address] 0 12/20/2015 15:32:03 12/20/2015 16:01:32 Hypothyroidism 81907352 E03.9 Essential hypertension 91330523 I10 Female uri nary stress incontinence 10083522 N39.3 Chronic sciatica 6431840 01 M54.30 Restless l egs syndrome 48925049 G25.81 [id number] MD Maribeth Henriquez ([facility]) [address] [place] [address] 0 12/27/2015 14:20:03 12/29/2015 12:05:11 Gynecologic examination 71881034 Z01.419 Z11.51 On menses will delay pap for now. Screening mammography 24 771432 Z12.31 Female uri nary stress incontinence 76468811 N39.3 Samples of Mybetriq given 25mg daily. [id number] MD Maribeth Mendiola (Adult Med) [address] [place] [address] 0 03/20/2016 15:47:23 03/20/2016 16:45:22 Etta 21477196 M62.831 Hypertensive disorder 38 307608 I10 Hypothyroidism 84104016 E03.9 Morbid obesity 041810148 E66.01 [id number] MD Maribeth Henriquez ([facility]) [address] [place] [address] 0 04/01/2016 14:43:10 04/02/2016 11:03:01 Gynecologic examination 28184476 Z01.419 Z11.51 On menses will delay pap for now. [id number] MD Maribeth Mendiola (Adult Med) [address] [place] [address] 0 04/03/2016 14:47:42 04/03/2016 15:39:42 Morbid obesity 193088302 E66.01 Chronic sciatica 8144590 01 M54.30 Family his tory of diabetes mellitus 543653895 Z83.3 [id number] MD Maribeth Mendiola (Adult Med) [address] [place] [address] 0 10/30/2016 10:31:13 10/30/2016 12:04:26 Morbid obesity 122050704 E66.01 Exercise, diet and lose weight, she agreed. Restless l egs syndrome 63816947 G25.81 Essential hypertension 47482976 I10 Female uri nary stress incontinence 44046926 N39.3 Hypothyroidism 21785173 E03.9 [id number] MD Maribeth Mendiola (Adult Med) [address] [place] [address]63[address]842 0 04/02/2017 15:49:32 04/02/2017 17:22:03 Acid reflux 483880133 K21.9 Female uri nary stress incontinence 70437181 N39.3 [id number] MD Maribeth Smith ([facility]) [address] [place] [address] 0 04/17/2017 14:34:06 04/17/2017 16:31:44 Gynecologic examination 99673164 Z01.419 Counseled about WWE and kegel excercises . Refer to hand out Screening mammography 24 227439 Z12.31 Body mass index 40+ - severely obese 904416332 Z68.41 Counseled About weight loss, diet and excercise. She refused die casting machine setter consult Venereal d isease screening 692094929 Z11.3 REFUSED BLOOD WORK FOR IT Family rashaad nning surveillance 857209763 Z30.09 REFUSED CONTRACEPT ION. SAFE SEX COUNSELING DONE [id number] Charli Anderson MD [facility] (Adult Med) [address] [place] [phone] 06/11/2017 15:19:52 06/11/2017 17:48:16 Nausea and vomiting [id number] R11.2 Possible IRS. will make GI referraL. Essential hypertension [id number] I10 SHE HAS NOT TAKEN HER BP MEDICATION YET TODAY. SHE HAS ENOUGH MEDICATION . Hypothyroidism [id number] E03.9 ON LEVOTHYROX INE. SHE HAS enough medication . Morbid obesity [id number] E66.01 SHE HAS LOST 30 POUNDS FROM 230 DOWN TO 212 SINCE MONTH AGO DUT TO UNABLE TO HAVE ENOUGH INTAKE. [id number] Charli Anderson MD [facility] (Adult Med) [address] [place] [address] [phone] 10/08/2017 16:26:04 10/08/2017 17:21:55 Acute bronchitis [id number] J20.9 Go to ER any time for any concern , she understood and agreed. Her luns sound more audible and no wheezing after finishing her albuterol nebulizer treatment, she is much easier to breathe. Her chest x-ray 10-01-2017 was unremarkab le, patient is informed in this office today 09-10-2017 . Hypothyroidism [id number] E03.9 ON LEVOTHYROX INE. SHE HAS enough medication . [id number] Charli Anderson MD [facility] (Adult Med) [address] [place] [address] [phone] 08/11/2018 16:42:23 08/12/2018 09:55:25 Acute bronchitis [id number] J20.9 Go to ER any time for any concern , she understood and agreed. Her luns sound more audible and no wheezing after finishing her albuterol nebulizer treatment, she is much easier to breathe. Her chest x-ray 10-01-2017 was unremarkab le, patient is informed in this office today 09-10-2017 . Hypothyroidism [id number] E03.9 ON LEVOTHYROX INE. SHE HAS enough medication . Health Concerns Section Related Observation LastModified by Organization Detai ls LastModified Time None Recorded Concern Status LastModified by Organization Details LastModified Time None Recorded Advance Directives Directive N: Payers Insurance Date Sequence Insurance Name Policy Number Policy Bowers Covered Member ID Bowers Member ID Guarantor Name 08/11/[address] [facility] [id number] Kassy Lyric [id number] Kassy Lyric 08/11/2018 1 [facility] (MEDICAID HMO) [id number] Kassy Lyric [id number] Kassy Lyric 04/03/2017 1 [place] [facility] [place] Kassy Lyric [id number] Kassy Lyric Notes Date Note Type Note Provider Name and Address Organization Details Recorded Time 7 text/html ROS as noted in the HPI ER visit for the hiatal hernia, pantoprazole caused constipation, and dicyclomine did not do nothing, but ondansetron 4 mg helps some.Allergic to lisinopril and morphine,. Charli Anderson MD Attn: Accounting,[address] [place], [address], [facility] 04/02/2017 17:20:56 7 text/html Annual GYNReported by PatientHistoryFor history, patient reportsno gynecologic complaints.Genitourina ry symptomsFor menstrual cycle, patient reportsnormal menses. For urinary symptoms, patient reportsno hematuriaandno incontinence. For vulva, patient reportsno genital lesion. For vagina, patient reportsnormal vaginal discharge.Breast symptomsFor breast, patient reportsno breast pain,no breast lump, andno nipple discharge.Endocrine symptomsFor sexual complaints, patient reportsno sexual complaints,no pain during intercourse, andnormal libido. For menopausal symptoms, patient reportsno menopausal symptomsandnormal vaginal lubrication.Psychologi courtney symptomsFor psychological symptoms, patient reportsno depression,no anxiety, andno pmdd.Preventative measuresFor preventive measures, patient reportsencourage self breast examination,encourage regular exercise,encourage no tobacco use,encourage regular mammograms starting age 40, andneeds to schedule mammogram(also counseled about calcium intake and advised to start over the counter calcium treatment.).ROS as noted in the HPI Rosalva Sierra MD Attn: Accounting,[address] [facility], [place], [address], [facility] 04/17/2017 16:15:30 7 text/html ROS as noted in the HPI Went to [facility], recently for N/V after food , she tried to stay away from spicy/ greasy food but not much relief, oxybutynin helps for her bladder, on omeprazole , levothyroxine and carvedilol, no diarrhea but has abdominal pain sometimes., allergic to morphine and lisinopril. Charli Anderson MD Attn: Accounting,[address] [facility], [place], [address], [facility] 06/11/2017 17:26:25 8 text/html ROS as noted in the HPI Recently went to Er twice for the acute bronchitis and wheezing, lives with a smoker, second hand smoker, allergic to morphine and lisinopril, just finished oral steroid , still on ventolin. Still coughes at night. She ran out her levothyroxine she has not taken her carvedilol for her hypertension yet today. Charli Anderson MD Attn: Accounting,[address] [facility], [place], [address], [facility] 10/08/2017 17:15:47 9 text/html ROS as noted in the HPI Chest cold , productive cough for one one week, second -hand smoker, allergic to morphine and lisinopril. Charli Anderson MD Attn: Accounting,[address] [facility], [place], [address], [facility] 08/11/2018 17:27:00 OBGyn Episode No OBEpisode recorded.
--- OUTSIDE RECORDS SUMMARY | 2025-06-06 22:12 | XMS_ITS | Clinical Summary ---
Author Organization [facility] Office Center Address [address] [place] [address] Care Team Providers Care Field Clerk Name Role Phone Starr Roberson Unavailable [phone] Viky Sanchez MD, William C. Unavailable [phone] Quinton Garcia MD Unavailable [phone] Artem Wyman MD Unavailable [phone] Liz Spain NP Primary Care Provider Allergies Active Allergy Reactions Criticality Noted Date Comments Lisinopril Swelling Medium 02/07/2020 Leg swelling Morphine Dizziness,Nausea & Vomiting Medium Semaglutide Swelling Medium 03/02/2025 Ozempic-Leg swelling Medications levothyroxine (SYNTHROID) 300 mcg tablet Take 1 tablet (300 mcg total) by mouth anesthesiologist attending before breakfast W/50 mcg tab for total of 350mcg/day Active levothyroxine (SYNTHROID) 50 mcg tablet Take 1 tablet (50 mcg total) by mouth anesthesiologist attending before breakfast W/300 mcg tab for total of 350mcg/day 01/08/20 20 Active rosuvastatin (CRESTOR) 20 mg tabletIndications: Mixed hyperlipidemia Take 0.5 tablets (10 mg total) by mouth daily 15 tablet 11 07/21/20 24 025 Active Additional Information Patient taking differently: 20 mgoralNightly, Indications: hyperlipidemia, Informant: Self, Reported on 03/15/2025 losartan (COZAAR) 100 mg tablet Take 1 tablet (100 mg total) by mouth daily 30 tablet 02/10/20 25 Active Additional Information Patient taking differently:100 mg oralEvery morning, Indications: hypertension, Informant: Self, Reported on 03/15/2025 cefdinir (OMNICEF) 300 mg capsuleIndications :Skin/Soft Tissue Infection,Cellulit is RLE Take 1 capsule (300 mg total) by mouth 2 (two) times a day 02/26/20 Active multivitamin tablet Take 1 tablet by mouth daily as needed (supplement) Active carvediloL (COREG) 3.125 mg tablet Take 1 tablet (3.125 mg total) by mouth 2 (two) times a day 60 tablet 03/03/20 Active oxyCODONE (ROXICODONE) 5 mg immediate release tabletIndications: Pain Take 1 tablet (5 mg total) by mouth every 4 (four) hours as needed for pain for up to 15 doses 15 tablet 03/19/20 25 Active Active Problems Problem Noted Date Diagnosed Date Acute postoperative pain of abdomen 03/15/2025 Pre-operative cardiovascular examination 025 Tubulovillous adenoma 01/03/2025 Colon polyp 11/11/2024 Mixed hyperlipidemia 07/21/2024 Benign hypertensive heart disease without heart failure 07/21/2024 Hypertensive heart disease with heart failure Bilateral lower extremity edema 02/07/2020 LUJAN (dyspnea on exertion) 02/07/2020 Incontinence 06/03/2016 Unspecified urinary incontinence 06/03/2016 Essential hypertension 01/17/2015 Overview (11/07/2016): Essential hypertension Morbid obesity Encounters Date Type Department Care Team Description 04/19/2025 Telephone [facility] Medicine Surgery [address] [place] [address] Medical Office Building [address] [place] [address] Savannah Rowley RN 04/11/2025 8:45 AM CDT Office Visit [facility] Medicine Surgery [address] [place] [address] Medical Office Building [address] [place] [address] Dov Salmon Jr., MD Tubulovillous adenoma (Primary Dx) 03/30/2025 Telephone [facility] Minimally Invasive Surgery [address] [place] [address] Medical Office Building [address] [place] [phone] Dov Salmon Jr., MD 03/25/2025 Telephone [facility] Surgery [address] [place] [address] Medical Office Building [address] [place] [phone] Chikis Garcia RN 03/22/2025 Results Follow-Up [facility] Surgery [address] [place] [address] Floor 5 [place] [phone] Lisa Saeed RMA Surgical pathology 03/15/2025 7:30 AM CDT - 03/15/2025 11:45 AM CDT Surgery [facility] Operating Room 1 [place] [address] Dov Salmon Jr., MD XI RIGHT COLECTOMY - LAPAROSCOPIC ROBOTIC ASSISTED 03/15/2025 7:28 AM CDT Anesthesia Event [facility] Operating Room 1 [place] [id number] Lucas Kennedy MD Richardson, Genea Michelle, NP 03/15/2025 5:14 AM CDT - 03/19/2025 12:50 PM CDT Hospital Encounter [address] [phone] Dov Salmon Jr., MD Acute postoperative pain of abdomen (Primary Dx); Tubulovillous adenoma; Colon polyp Discharge Disposition: Discharge to home or self care 03/14/2025 Telephone [facility] Surgery [address] [place] [address] 5 [place] [phone] Lisa Saeed RMA from Last 3 Months Surgical History Surgery Date Site/Laterality Comments EAR SURGERY ANKLE SURGERY APPENDECTOMY Medical History Medical History Date Comments Hx Other Medical hypothyroidism, obesity, hypertension, appendectom; Comments: [facility] 12/27/2014 - Hypertension Acid reflux Thyroid disease Morbid obesity (HCC) Hypothyroidism Family History Medical History Relation Name Comments Other Brother 2 Alive and well; Heart disease Father Other Father Alive and well; Stroke Mother Stroke; Other Sister 2 Alive and well; Anesthesia problems Neg Hx Relation Name Status Comments Brother 1 Alive Brother 2 Father Alive Mother (Age 69) Sister 1 Alive Sister 2 Social History Tobacco Use Types Packs/Day Years Used Date Smoking Tobacco: Never Passive Smoke Exposure: Current Smokeless Tobacco: Never Tobacco Cessation:Counseling Given: Not Answered Alcohol Use Standard Drinks/Week Comments Not Currently 0 (1 standard drink = 0.6 oz pur e alcohol) AUDIT-C Answer Date Recorded Q1: How often do you have a drink containing alcohol? Never 03/15/2025 Q2: How many drinks containi ng alcohol do you have on a typical day when you are drinking? Patient does not drink Q3: How often do you have si x or more drinks on one occasion? Never 03/15/2025 Personal Safety Answer Date Recorded Have you ever been in or are you currently in a harmful physical or emotional relationship or is someone making you feel afraid or unsafe? 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 Gender Identity Not on file Sexual Orientation Not on file Last Filed Vital Signs Vital Sign Reading Time Taken Comments Blood Pressure 166/96 04/11/2025 8:19 AM CDT Pulse 107 04/11/2025 8:19 AM CDT Temperature 36.9 C (98.4 F) 04/11/2025 8:19 AM CDT Respiratory Rate 18 04/11/2025 8:19 AM CDT Oxygen Saturation 99% 04/11/2025 8:19 AM CDT Inhaled Oxygen Concentration - - Weight 111.3 kg (245 lb 6.4 oz) 04/11/2025 8:19 AM CDT Height 154.9 cm (5' 1) 03/15/2025 4:15 PM CDT Body Mass Index 46.37 03/15/2025 4:15 PM CDT Plan of Treatment Health Maintenance Due Date Last Done Comments Breast Cancer Screening-Mammogram 1970 Cervical Cancer Screening 1970 Depression Screening 1970 Hepatitis C Screening 1970 DTaP/Tdap/Td Vaccine (1 - Tdap) 1980 Hepatitis B Screening 11/14/1987 Regular Well Visit/Exam 18-64 11/14/1987 Pneumococcal vaccine <65 (1 of 2 - PCV) 1988 Zoster Vaccine (1 of 2) 11/14/2019 Covid-19 Vaccine (4 - 2024-2 6 season) 2025 08/01/2021, 09/22/2020, 09/01/2020 Influenza Vaccine (#1) 2025 4, 05/05/2023, 07/19/2022, Additional history exists Colon Cancer Screening-Colonoscopy 12/22/2034 12/22/2024 Colon Cancer Screening-CT Colonography Discontinued 12/22/2024 Colon Cancer Screening-DNA Stool Discontinued 12/23/19 Colon Cancer Screening-FIT Discontinued 12/22/2024 Colon Cancer Screening-Sigmoidoscopy Discontinued 12/22/2024 Procedures Procedure Name Priority Date/Time Associated Diagnosis Comments EGFR Timed 03/16/2025 11:51 PM CDT BASIC METABOLIC PANEL Timed 03/16/2025 11:51 PM CDT CBC WITHOUT DIFFERENTIAL Timed 03/16/2025 11:51 PM CDT EGFR Timed 03/15/2025 10:10 PM CDT BASIC METABOLIC PANEL Timed 03/15/2025 10:10 PM CDT CBC WITHOUT DIFFERENTIAL Timed 03/15/2025 10:10 PM CDT SURGICAL PATHOLOGY Routine 03/15/2025 11 :31 AM CDT Tubulovillous adenoma SD AN PROCEDURE PLACEHOLDER Routine 03/15/2025 8:18 AM CDT SD AN ELECTIVE ENDOTRACHEAL AIRWAY Routine 03/15/2025 8:18 AM CDT SD AN PROCEDURE PLACEHOLDER Routine 03/15/2025 8:15 AM CDT SD AN PROCEDURE PLACEHOLDER Routine 03/15/2025 8:15 AM CDT SD AN PROCEDURE PLACEHOLDER Routine 03/15/2025 8:15 AM CDT LAPAROSCOPIC LYSIS ADHESIONS 03/15/2025 7:32 AM CDT Tubulovillous adenoma Case Notes 01/11- rescheduled case per 03/15 per Lisa via case msg (EF) XI RIGHT COLECTOMY - LAPAROSCOPIC ROBOTIC ASSISTED 03/15/2025 7:32 AM CDT Tubulovillous adenoma Case Notes 01/11- rescheduled case per 03/15 per Lisa via case msg (EF) B CHECK SAMPLE STAT 03/15/2025 6:17 AM CDT POCT GLUCOSE DEVICE Routine 03/15/2025 6 :14 AM CDT COLONOSCOPY 12/22/2024 8:14 AM CDT from Last 3 Months or Most Recently Relevant to Health Maintenance Results * eGFR (03/16/2025 11:51 PM CDT) eGFR >90 >=60 mL/min/1. 73 m2 Comment: Interpretive Data Reference Interval Normal >/= 90 mL/min/1.73m2 Mildly decreased* 60 - 89 mL/min/1.73m2 Mildly to moderately decreased 45 - 59 mL/min/1.73m2 Moderately to severely decreased 30 - 44 mL/min/1.73m2 Severely decreased 15 - 29 mL/min/1.73m2 Kidney Failure < 15 mL/min/1.73m2 *Relative to young adult level Estimated glomerular filtration rate is determined by the 2020 CKD-EPI equation recommended by the National Kidney Foundation (A Unifying Approach to GFR Estimation: Recommendations of the NKF-ASK Task Force on Reassessing the Inclusion of Race in Diagnosing Kidney Disease, JASN 2020). The CKD-EPI equation should not be used for patients with unstable renal function and has not been validated in children and those over 70. Current interpretive data was last reviewed 2021. Blood 03/16/2025 11:5 1 PM CDT 03/17/2025 12:53 AM CDT us Dov Salmon Jr., MD LAB BLOOD ORDERABLES Final Result [facility] [place] [address] * (ABNORMAL) CBC without differential (03/16/2025 11:51 PM CDT) WBC 9.27 3.80 - 9.90 K/cumm Hgb 9.4(L) 11.9 - 15.5 g/dL [facility] Hct 31.0(L) 35.6 - 45.5 % [facility] Plt 255 150 - 400 K/cumm [facility] MPV 9.2 9.1 - 12.[address] [facility] RBC 3.34(L) 3.90 - 5.20 M/cumm [facility] MCV 92.8 81.3 - 96.[address] [facility] MCH 28.1 27.1 - 33.[address] [facility] MCHC 30.3(L) 32.3 - 35.7 g/dL [facility] RDW CV 14.1 11.1 - 14.9 % [facility] RDW SD 47.3 35.7 - 48.[address] [facility] NRBC abs 0.00 0.00 - 0.01 K/cumm [facility] Blood 03/16/2025 11:5 1 PM CDT 03/17/2025 12:40 AM CDT Narrative [facility] - 03/17/2025 12:52 AM CDT Obtain POD 1 at 2200. Dov Salmon Jr., MD LAB BLOOD ORDERABLES Final Result Performing Organization Address City/[facility]/ZIP Co de Phone Number [facility] [place] [address] * (ABNORMAL) Basic metabolic panel (03/16/2025 11:51 PM CDT) Pathologist [facility] Sodium 140 135 - 145 mmol/L Potassium, pl 3.7 3.3 - 4.9 mmol/L [facility] Chloride 103 97 - 110 mmol/L [facility] CO2 30 22 - 32 mmol/L [facility] Anion gap 7 2 - 15 mmol/L [facility] BUN 13 6 - 25 mg/dL [facility] Creatinine 0.74 0.60 - 1.10 mg/dL [facility] Glucose 100 70 - 199 mg/dL [facility] Comment: Interpretive Data Fasting glucose >/= 126 mg/dl is diagnostic for diabetes. Fasting is defined as no caloric intake for at least 8 hours. Fasting glucose between 100 mg/dl to 125 mg/dl is diagnostic of prediabetes. In a patient with classic symptoms of hyperglycemia or hyperglycemic crisis, a random glucose >/= 200 mg/dl is diagnostic for diabetes. In the absence of unequivocal hyperglycemia, results should be confirmed by repeat testing. The classification and Diagnosis of Diabetes Diabetes Care 2021; 46: S19-S40. Current interpretive data was last revised 2022. Calcium 7.8(L) 8.5 - 10.3 mg/dL [facility] Blood 03/16/2025 11:5 1 PM CDT 03/17/2025 12:53 AM CDT Narrative [facility] - 03/17/2025 1:23 AM CDT Obtain POD 1 at 2200. Dov Salmon Jr., MD LAB BLOOD ORDERABLES Final Result [facility] [place] [address] * eGFR (03/15/2025 10:10 PM CDT) eGFR >90 >=60 mL/min/1. 73 m2 Comment: Interpretive Data Reference Interval Normal >/= 90 mL/min/1.73m2 Mildly decreased* 60 - 89 mL/min/1.73m2 Mildly to moderately decreased 45 - 59 mL/min/1.73m2 Moderately to severely decreased 30 - 44 mL/min/1.73m2 Severely decreased 15 - 29 mL/min/1.73m2 Kidney Failure < 15 mL/min/1.73m2 *Relative to young adult level Estimated glomerular filtration rate is determined by the 2020 CKD-EPI equation recommended by the National Kidney Foundation (A Unifying Approach to GFR Estimation: Recommendations of the NKF-ASK Task Force on Reassessing the Inclusion of Race in Diagnosing Kidney Disease, JASN 202). The CKD-EPI equation should not be used for patients with unstable renal function and has not been validated in children and those over 70. Current interpretive data was last reviewed 2021. Blood 03/15/2025 10:1 0 PM CDT 03/15/2025 10:45 PM CDT us Dov Salmon Jr., MD LAB BLOOD ORDERABLES Final Result [facility] [place] [address] * (ABNORMAL) CBC without differential (03/15/2025 10:10 PM CDT) WBC 9.78 3.80 - 9.90 K/cumm Hgb 10.1(L) 11.9 - 15.5 g/dL [facility] Hct 31.9(L) 35.6 - 45.5 % [facility] Plt 267 150 - 400 K/cumm [facility] MPV 9.9 9.1 - 12.[address] [facility] RBC 3.60(L) 3.90 - 5.20 M/cumm [facility] MCV 88.6 81.3 - 96.[address] [facility] MCH 28.1 27.1 - 33.[address] [facility] MCHC 31.7(L) 32.3 - 35.7 g/dL [facility] RDW CV 13.9 11.1 - 14.9 % [facility] RDW SD 45.0 35.7 - 48.[address] [facility] NRBC abs 0.00 0.00 - 0.01 K/cumm [facility] Blood 03/15/2025 10:1 0 PM CDT 03/15/2025 10:46 PM CDT Narrative [facility] - 03/15/2025 11:27 PM CDT Obtain POD 0 at 2200. us Dov Salmon Jr., MD LAB BLOOD ORDERABLES Final Result [facility] Department [place] [address] * (ABNORMAL) Basic metabolic panel (03/15/2025 10:10 PM CDT) Pathologist [facility] Sodium 137 135 - 145 mmol/L Potassium, pl 4.6 3.3 - 4.9 mmol/L [facility] Chloride 101 97 - 110 mmol/L [facility] CO2 26 22 - 32 mmol/L [facility] Anion gap 10 2 - 15 mmol/L [facility] BUN 10 6 - 25 mg/dL [facility] Creatinine 0.61 0.60 - 1.10 mg/dL [facility] Glucose 207(H) 70 - 199 mg/dL [facility] Comment: Interpretive Data Fasting glucose >/= 126 mg/dl is diagnostic for diabetes. Fasting is defined as no caloric intake for at least 8 hours. Fasting glucose between 100 mg/dl to 125 mg/dl is diagnostic of prediabetes. In a patient with classic symptoms of hyperglycemia or hyperglycemic crisis, a random glucose >/= 200 mg/dl is diagnostic for diabetes. In the absence of unequivocal hyperglycemia, results should be confirmed by repeat testing. The classification and Diagnosis of Diabetes Diabetes Care 2021; 46: S19-S40. Current interpretive data was last revised 2022. Calcium 8.0(L) 8.5 - 10.3 mg/dL [facility] Blood 03/15/2025 10:1 0 PM CDT 03/15/2025 10:45 PM CDT Narrative [facility] - 03/15/2025 11:46 PM CDT Obtain POD 0 at 2200. us Dov Salmon Jr., MD LAB BLOOD ORDERABLES Final Result [facility] [place] [address] * Surgical pathology (03/15/2025 11:31 AM CDT) Tissue (Colon, Resection, Tumor) 03/15/2025 11:31 AM CDT Narrative PATHOLOGY [facility] - 03/21/2025 5:10 PM CDT EPIC results best viewed via link to PDF [facility] [place] [address] Note to Patients: This report may contain a detailed description of human tissue sent by a health care provider to the laboratory for pathologic evaluation. The content of this report is essential for diagnosis and may provide important critical findings. This information may be unfamiliar to patients to review without a medical professional present. It is advised that the patient review this report in the presence of a health care provider who can answer questions and explain the details. SURGICAL PATHOLOGY REPORT FINAL Patient Name: KASSY JACKSON Gender: F : 1970 (Age: 54) Address: [address] [place] [address] Hospital #: [id number] Taken:03/15/2025 Received:03/15/2025 Reported: 03/21/2025 Patient Type: [facility] Inpatient Service: Surgery Location: [place] [address] Physician(s): Dov Salmon Jr., MJose Elias Spain NP Diagnosis: Terminal ileum and right colon, right colectomy: -Tubulovillous adenoma (6.0 cm) with rare foci of high-grade dysplasia; negative for invasive adenocarcinoma. - Proximal ileal, distal colonic and mesenteric margins, negative for dysplasia or carcinoma. - Two (2) benign lymph nodes. - Uninvolved colon and terminal ileum with no significant abnormality. [facility]/03/18/2025 17:27 By this signature, I attest that the above diagnosis is based upon my personal examination of the slides(and/or other material indicated in the diagnosis). Leeroy Lane MD, PHD Report Electronically Reviewed and Signed Out By Leeroy Lane MD, PHD 03/21/2025 17:10:18 Diagnosis Comment The 6.0-cm polyp has been entirely submitted for examination. Abi Woo M.D. History: The patient is a 54-year-old female with history of benign tubulovillous adenoma diagnosed on biopsy. Operative procedure: Laparoscopic robotic assisted right colectomy Specimen(s) Received: A: Terminal ileum and right colon Gross Description: The specimen received in a formalin filled container labeled with patient identifiers and additionally labeled as terminal ileum and right colon is a anatomically oriented segment of terminal ileum (6.3 cm in length and 3.5 cm maximum internal circumference) and ascending colon (20.5 cm in length and 8.0 cm in maximum internal circumference) with opposing stapled margins. The serosal surface is craft-pink, smooth and glistening. The mucosal surface shows a single, craft-brown, pedunculated polyp measuring 6.0 x 4.0 cm. The polyp is 21.0 cm from the proximal margin, 3.0 cm from the distal margin and 4.0 cm from the radial margin. The polyp is sectioned to show a maximum thickness of 3.4 cm and appears to be invading up to the subserosa grossly. The remainder of the specimen is grossly unremarkable. The appendix is not present (previous history of appendectomy). Multiple lymph nodes are dissected ranging from 0.2 cm to 0.5 cm in greatest dimension. Labeled: A1 Proximal resection margin, shaved, A2 Distal resection margin, shaved, A3 Radial margin, shaved, A4-A8 Polyp, telecommunications sales representative sections (A4-A6 - stock), A9-A10 Mucosa and pericolic fat under the polyp, A11 Ileocecal valve, telecommunications sales representative section, A12 Normal mucosa, A13-A14 Multiple lymph nodes, intact, A15-23 remaining polyp submitted Jar 4. tree03/16/2025 17:00 Gross Resident:Abi Woo M.D. By this signature, I attest that the above diagnosis is based upon my personal examination of the slides(and/or other material). Addenda/Procedures The performance characteristics of some immunohistochemical stains, fluorescence in-situ hybridization tests and immunophenotyping by flow cytometry cited in this report (if any) were determined by the Surgical Pathology and Flow Cytometry Departments at [facility] as part of an ongoing vice president quality improvement program and in compliance with federally mandated regulations drawn from the Clinical Laboratory Improvement Act of 1988 (CLIA '88). Some of these tests rely on the use of analyte specific reagents and are subject to specific labeling requirements by the US Food and Drug Administration. Such diagnostic tests may only be performed in a facility that is certified by the Department of Health and Human Services as a high complexity laboratory under CLIA '88. The FDA has determined that such clearance or approval is not necessary. This test is used for clinical purposes. It should not be regarded as investigational or for research. Nevertheless, federal rules concerning the medical use of analyte specific reagents require that the following disclaimer be attached to the report: This test was developed and its performance characteristics determined by the Surgical Pathology and Flow Cytometry Departments of [facility]. It has not been cleared or approved by the U. S. Food and Drug Administration. IMAGES AND SCANNED DOCUMENTS, IF INCLUDED, ONLY VIEWABLE IN PDF VERSION OF REPORT us Dov Salmon Jr., MD LAB PATHOLOGY ORDERAB LES Final Result Performing Organization Address City/State/[facility] Co de Phone Number PATHOLOGY [facility] 3rd Floor [place], [place] [phone] * SD AN ELECTIVE ENDOTRACHEAL AIRWAY, SD AN PROCEDURE PLACEHOLDER (03/15/2025 8:18 AM CDT) Narrative Asha Nicholas CRNA - 03/15/2025 8:18 AM CDT Asha Nicholas CRNA 03/15/2025 8:19 AM Airway Patient location: OR Urgency: elective Indications for airway management: anesthesia Difficult airway: no Staff: Supervising provider: Lucas Kennedy MD Placed by: BUSINESS DEVELOPMENT OFFICER: Asha Nicholas CRNA Emergent airway documentation: Risks and benefits discussed: yes Consent obtained: yes Consent given by: patient Airway prep: Preoxygenated: yes Patient position: sniffing Mask difficulty assessment: 0 - not attempted Spontaneous ventilation during airway: absent Sedation level during airway: GA Final airway details: Final airway type: endotracheal airway Tube type: ETT ETT size: 7.0 mm Cuffed: yes Technique used for successful ETT placement: video laryngoscopy Devices/Methods used in placement: stylet Insertion site: oral Blade type: Anna Video blade type: Huerta Blade size: 3 Cormack-Lehane (video): grade I - full view of glottis Cuff volume: 7 mL Cuff inflated with: air ETT to teeth: 21 cm Placement verified by: auscultation and CO2 detection Airway secured with: silk tape Number of attempts: 1no Additional comments: First attempt by resident on airway rotation. Second attempt by BUSINESS DEVELOPMENT OFFICER with grade 1 view via video and easy intubation. Easy to mask in between attempts with two hands and oral airway Lucas Kennedy MD ANESTHESIA ORDERABLES Final Result * SD AN PROCEDURE PLACEHOLDER (03/15/2025 8:15 AM CDT) Asha Verma CRNA - 03/15/2025 8:15 AM CDT Asha Nicholas CRNA 03/15/2025 8:51 AM Peripheral IV Catheter Patient location: OR Staff: Placed by: SAMANTHA: Yadira Zacarias CRNA Preprocedure prep: Prep solution: chlorhexadine PPE: gloves and provider hat/mask PIV line: Site: upper arm Catheter size: 20 g Technique: direct visualization and palpatation Procedure details: good blood return and occlusive dressing applied Number of attempts: 1 Assessment: Events: patient tolerated procedure well with no complications Result [facility] Lucas Kennedy MD ANESTHESIA ORDERABLES Edite d Result - Final * SD AN PROCEDURE PLACEHOLDER (03/15/2025 8:15 AM CDT) Asha Verma CRNA - 03/15/2025 8:15 AM CDT Asha Nicholas CRNA 03/15/2025 8:51 AM Peripheral IV Catheter Patient location: OR Staff: Placed by: BUSINESS DEVELOPMENT OFFICER: Yadira Zacarias CRNA Preprocedure prep: Prep solution: chlorhexadine PPE: gloves and provider hat/mask PIV line: Laterality: right Site: hand Catheter size: 20 g Technique: direct visualization and palpatation Procedure details: good blood return and occlusive dressing applied Number of attempts: 1 Assessment: Events: patient tolerated procedure well with no complications Result [facility] Lucas Kennedy MD ANESTHESIA ORDERABLES Edite d Result - Final * SD AN PROCEDURE PLACEHOLDER (03/15/2025 8:15 AM CDT) Asha Verma CRNA - 03/15/2025 8:15 AM CDT Asha Nicholas, BUSINESS DEVELOPMENT OFFICER 03/15/2025 8:15 AM Peripheral IV Catheter Patient location: OR Staff: Placed by: Anesthesiologist: Lucas Kennedy MD Preprocedure prep: Prep solution: chlorhexadine PPE: gloves and provider hat/mask PIV line: Laterality: left Site: antecubital Catheter size: 20 g Technique: direct visualization and ultrasound guided Procedure details: good blood return and occlusive dressing applied Number of attempts: 1 Assessment: Events: patient tolerated procedure well with no complications us Lucas Kennedy MD ANESTHESIA ORDERABLES Edite d Result - Final * Check Sample (03/15/2025 6:17 AM CDT) ABO Rh A Negative [facility] OTHER 03/15/2025 6:17 AM CDT 03/15/2025 6:55 AM CDT Dov Salmon Jr., MD LAB BLOOD ORDERABLES Final Result [facility] [place] [address] [facility] * POCT glucose (03/15/2025 6:14 AM CDT) Glucose, POC 131 70 - 199 mg/dL Blood 03/15/2025 6:14 AM CDT 03/15/2025 6:14 AM CDT Dov Salmon Jr., MD LAB POCT ORDERABLES - DEVICE Final Result Performing Organization Address City/[facility]/ZIP Co de Phone Number [facility] [place] [employer] [place] [address] * Colonoscopy (12/22/2024 8:14 AM CDT) Anatomical Region Laterality Modality Other Narrative Procedure Note Artem Wyman MD - 12/22/2024 8:14 AM CDT ENDOSCOPY LAB Patient Name: Kassy Jackson Procedure Date: 12/22/2024 8:14 AM Admit Type: Outpatient Room: [facility] Date of : 1970 Instrument Name: [id number] Gender: Female Note Status: Finalized Procedure: Colonoscopy Indications: Therapeutic procedure for known colon polyp; h/o +Cologuard with index colonoscopy at OSH with?blood in colon and a 15mm polyp identified at thehepatic flexure that had stigmata of bleeding and wasbiopsied x 6 and then snared, but patient decompensated with hypotension/bradycardia and the procedure wasaborted. Path from the recovered parts of the specimen demonstrate no HGD or carcinoma. Here for evaluation/potential EMR. Providers: Artem Wyman M.D. Referring MD: Alessia Segura M.D., Puja Jessica, RACING SECRETARY AND HANDICAPPER Medicines: General Anesthesia Complications: No immediate complications. Estimated blood loss:None. Estimated Blood Loss: Estimated blood loss: none. Procedure: Pre-Anesthesia Assessment: - The risks and benefits of the procedure and the sedation options and risks were discussed with the patient. All questions were answered and informed consent was obtained. - Immediately prior to administration ofmedications, the patient was re-assessed for adequacy to receive sedatives. - The anesthesia plan was to use monitoredanesthesia care (MAC). The benefits, risks and alternatives of theprocedure and sedation were discussed and informed consentwas obtained. All questions were answered. Please referto the signed informed consent document in the medical record. The scope was passed under direct vision.The Colonoscope was introduced through the anus and advanced to the the cecum, identified byappendiceal orifice and ileocecal valve. The colonoscopy was performed without difficulty. The patient tolerated the procedure well. The quality of the bowel preparation was evaluated using the BBPS (BostonBowel Preparation Scale) with scores of: Right Colon = 2 (minor amount of residual staining, small fragmentsof stool and/or opaque liquid, but mucosa seen well), Transverse Colon = 2 (minor amount of residual staining, small fragments of stool and/or opaque liquid, but mucosa seen well) and Left Colon = 3 (entire mucosa seen well with no residual staining, small fragments of stool or opaque liquid). Thetotal BBPS score equals 7. The quality of the bowel preparation was good. The bowel preparation usedwas GoLYTELY via split dose instruction. Findings: The perianal and digital rectal examinations were normal. A 5 mm polyp was found in the cecum. The polyp was semi-sessile. The polyp was removed with a cold snare. Resection and retrieval were complete. At the hepatic flexure, there was a partially obstructing, fungating, large mass extending over 5cm in length. There were multiple areas of depression associated with the mass, making it in unamenable for endoscopic resection and concerning for advanced histology/cancer.The mass was biopsied with a cold forceps for histology. Just distal tothe mass the colon was injected with 2 mL Spot (carbon black) fortattooing. Internal hemorrhoids were found during retroflexion. The hemorrhoids were moderate. Impression: - At the hepatic flexure, there was a partially obstructing, fungating, large mass extending [id number] in length. There were multiple areas of depression associated with the mass, making it in unamenablefor endoscopic resection and concerning for advanced histology/cancer. The mass was biopsied with a cold forceps for histology. Just distal to the mass the colon was injected with 2 mL Spot (carbon black)for tattooing - One 5 mm polyp in the cecum, removed with a cold snare. Resected and retrieved. - Internal hemorrhoids. Recommendation: - Observe patient's clinical course followingtoday's Colonoscopy. - Await pathology results. - Refer patient to Colorectal Surgery formanagement of endoscopically unresectable colon mass. Patient prefers to be referred at [facility] and we will arrange this. - Resume home medications and diet. - Return to primary care physician as previously scheduled. - In the unusual situation that you developabdominal pain, bleeding or other significant problems in the days following this procedure please call my officeat [phone] ([phone]) to speak to my nurses. After hours and evenings please call [phone] speak to the GI fellow divisional storekeeper. Please tell themthat Dr. Wyman did your procedure and that your were instructed to have the fellow call me or thephysician covering for me to discuss the management of your condition. If you have an urgent problem, please goto the nearest emergency room and have the ER doctorcall my office during the day or [facility] transfer ([phone]) center after hours and weekends to arrange admission or transfer to our facility. - Call my nurse Lisa Bustos RN in the GI office at [phone] for your final pathology results in 7 days. - Repeat colonoscopy. Attending Participation: I personally performed the entire procedure. Electronically Signed By: Artem Wyman M.D. Artem Wyman M.D. 12/22/2024 10:28:46 AM This document was signed electronically. Number of Addenda: 0 Note Initiated On: 12/22/2024 8:14 AM Scope Withdrawal Time: 0 hours 14 minutes 56 seconds Scope In: 9:08:05 AM Scope Out: 9:25:18 AM us Artem Wyman MD ENDOSCOPY PROCEDURES Final Result from Last 3 Months or Most Recently Relevant to Health Maintenance [place] For more information, please contact: [phone] * Full Code (Latest Code Status on File) Date Activated Date Inactivated Comments 03/15/2025 4:11 PM 03/19/2025 5:00 PM * Full Code Date Activated Date Inactivated Comments 12/22/2024 7:49 AM 12/22/2024 3:06 PM Care Teams Field Clerk Relationship Specialty Start Date End Date Liz Spain NP [address] [place] [address] PCP - General Family Medicine 01/11/25 Starr Roberson PA [address] [place] [address] 07/21/24 Dov Salmon Jr., MD [address] [facility] [phone] [place] [address] Consulting Physician Colon and Rectal Surgery 01/06/25 Quinton Garcia MD [address] [place] [address] Consulting Physician Cardiology 01/06/25 Artem Wyman MD [address] [place] [address] Referring Physician Gastroenterology 01/06/25
[2025-06-06 22:16] VITALS: RESP 26
[2025-06-06 22:18] LABS: Alanine Aminotransferase 22 U/L (6-35); Albumin Level 4.1 g/dL (3.5-5.1); Alkaline Phosphatase 119 U/L (38-126); Anion Gap 9 mmol/L (4-12); Aspartate Amino Transferase 29 U/L (14-36); Bilirubin,Total 0.9 mg/dL (0.2-1.3); Blood Urea Nitrogen 11 mg/dL (7-17); Calcium 8.6 mg/dL (8.4-10.2); Carbon Dioxide 26 mmol/L (22-30); Chloride 97 mmol/L (98-107); Estimated CRCL calculation 90 ml/min; Estimated Glomerular Filt Rate > 60; Glucose 140 mg/dL (65-110); Potassium 4.3 mmol/L (3.4-5.0); Sodium 132 mmol/L (137-145); Total Protein 8.8 g/dL (6.3-8.2)
[2025-06-06] MEDS: LACTATED RINGERS 1,000 ML 999 ML IV CONT ×2 (22:38→22:39)
[2025-06-06] MEDS: ACETAMINOPHEN 500 MG TABLET 1000 MG PO (22:38)
--- NOTE | 2025-06-06 22:39 | ED_ITS ---
HPI - Fever General Chief Complaint: Fever Stated Complaint: chills, bodyaches Time Seen by Provider: 06/06/25 21:41 History of Present Illness HPI Narrative: 54-year-old female with recent colon cancer status post resection at [facility] several months ago. Patient also has a history of chronic lymphedema right worse than left and morbid obesity. Patient presents to the emergency department today with chills, fever, shakes, fatigue and body aches all over. Patient denies any chest pain or shortness of breath. No abdominal pain or cough. States her legs are not much more swollen than baseline and are always warm to the touch. Denies any medications prior to arrival and did not take her temperature home. Denies any urinary complaints. No cough or recent sick contacts. Related Data Home Medications ?Medication ?Instructions ?Recorded ?Confirmed ?Last Taken ?Type carvedilol 25 mg tablet BID 04/29/20 06/20/20 Histo ry levothyroxine 300 mcg tablet 350 DAILY 04/29/20 Unkno wn History levothyroxine 50 mcg tablet 350 DAILY 04/29/20 History Allergies Allergy/AdvReac Type Severity Reaction Status Date / Time lisinopril Allergy Intermediate leg Verified 03/13/24 16:25 swelling morphine AdvReac Mild Nausea and Verified 03/13/24 16:25 Vomiting Review of Systems 2 Review of Systems: As reviewed above in HPI PMFSH Past Medical History Medical History Swelling of both lower extremities 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 Hypertension Surgical History Surgical History History of dental surgery History of ankle surgery Right, x5 History of ear surgery Left, x4 Hx of appendectomy Family History Family History Father Alive and well Mother Hypertension Social History Social History Smoking status: Never smoker Tobacco type: cigarettes Second hand tobacco smoke exposure: Yes Alcohol intake: never Substance use: never Living arrangements: with family Occupation/Education: occupation Gender identity (if verbalized by the patient): Female Spiritual care concerns: No Exam 2 Narrative: GENERAL: Morbidly obese, diaphoretic, tachycardic, awake and answering questions HEAD: [Normocephalic, atraumatic.] EYES: [PERRLA and EOMI.] ENT: Nares clear, no rhinorrhea or epistaxis. Mucous membranes moist. NECK: Supple. CHEST: [Clear to auscultation. No respiratory distress.] HEART: Rapid rate and regular rhythm. No murmur heard. Warm extremities ABDOMEN: Soft nontender nondistended abdomen. No peritonitis. EXTREMITIES: Bilateral lymphedema with Sumner like appearance and worse on the right side. Warm and nontender to palpation. No weepage of fluid drainage. SKIN: Warm, dry, no rash. NEURO: [No focal deficits]. Alert and oriented [x3.] PSYCH: [Normal mood and affect.] Course Vital Signs Vital signs: Vital Signs Temperature 39.2 C H 06/06/25 19:41 Pulse Rate 112 H 06/06/25 19:41 Respiratory Rate 22 H 06/06/25 19:41 Blood Pressure 156/88 H 06/06/25 19:41 Pulse Oximetry 94 06/06/25 19:41 Oxygen Delivery Room Air 06/06/25 19:41 Temperature 36.6 C 06/07/25 03:00 Pulse Rate 87 06/07/25 06:00 Respiratory Rate 19 06/07/25 06:00 Blood Pressure 142/85 H 06/07/25 06:00 Pulse Oximetry 99 06/07/25 06:00 Oxygen Delivery Room Air 06/06/25 22:16 MDM - Fever MDM Narrative Medical decision making narrative: 54-year-old female with recent colon cancer status post resection at [facility] several months ago. Patient also has a history of chronic lymphedema right worse than left and morbid obesity. Patient presents to the emergency department today with chills, fever, shakes, fatigue and body aches all over. Patient denies any chest pain or shortness of breath. No abdominal pain or cough. States her legs are not much more swollen than baseline and are always warm to the touch. Denies any medications prior to arrival and did not take her temperature home. Denies any urinary complaints. No cough or recent sick contacts. Patient is ill-appearing and appears tachycardic with tachypnea and fever. Mildly elevated blood pressure. 94% saturation on room air. She has chronic lymphedema in her legs right worse than left that she states is unchanged. They are warm to the touch but she states this is chronic. No abdominal distension or tenderness. Patient is complaining of diffuse body pains chills fever and with her infectious findings and recent abdominal surgeries suspicion raise for sepsis or postsurgical complication or infection. Broad workup obtained including blood cultures, lactic acid, CBC, CMP, lipase, urinalysis, COVID flu RSV. Patient placed on monitor given Tylenol and fluids. CT of the chest abdomen pelvis obtained for further workup. Patient felt significantly improved after interventions fluids and antibiotics. Expressing desire to go home as she feels great. Her workup shows a slight leukocytosis of 14.8. Anemia of 8.9. Electrolytes unremarkable. Normal glucose. Lactic acid 2.5 down trended 1.9. LFTs unremarkable. Urinalysis with no signs of infection. Negative COVID flu RSV panel. Negative MRSA swab. CT of the chest abdomen pelvis shows no acute findings. Patient most likely has viral syndrome and reactive to a viral illness verses a cellulitic skin infection even though she states her legs are unchanged from baseline. Patient would prefer to go home at this time. Given patient's clinical improvement and no acute focal findings after some shared decision-making patient will be sent home with Bactrim and given strict return precautions and follow-up instructions. Medical Records Attestation: I reviewed the patient's medical records. Lab Data Attestation: I reviewed the patient's lab results. 06/06/25 21:59 06/06/25 21:59 Labs: Lab Results 06/06/25 06/06/25 06/06/25 Range/Units 19:45 21:59 23:16 WBC 14.8 H (4.5-10.0) K/mm3 RBC 3.66 L (4.2-5.4) M/mm3 Hgb 8.9 L D (12.0-15.0) g/dL Hct 30.6 L (37.0-47.0) % MCV 83.6 (80-100) fl MCH 24.3 L (26-34) pg MCHC 29.1 L (32-36) g/dl RDW 15.5 H (11.5-14.5) % Plt Count 355 (150-375) k/mm3 MPV 8.7 (7.4-10.4) fl Immature Gran % (Auto) 0.7 H (0-0.5) % Neut % (Auto) 89.3 H (45.5-73.1) % Lymph % (Auto) 5.5 L (18.3-44.2) % Gregory % (Auto) 4.1 (2.6-8.5) % Eos % (Auto) 0.1 (0-4.4) % Baso % (Auto) 0.3 (0.2-1.2) % Lymph # (Auto) 0.81 L (0.9-3.2) K/mm3 Gregory # (Auto) 0.6 (0.1-0.6) K/mm3 Eos # (Auto) 0.0 (0-0.3) K/mm3 Baso # (Auto) 0.0 (0.0-0.1) K/mm3 Abs Immat Gran (auto) 0.10 H (0.00-0.031) K/mm3 Absolute Neuts (auto) 13.2 H (1.3-6.7) K/mm3 Absolute Nucleated RBC 0.000 (0.0-0.012) K/mm3 Nucleated RBC % 0.0 (0.0-0.2) % Sodium 132 L (137-145) mmol/L Potassium 4.3 (3.4-5.0) mmol/L Chloride 97 L (98-107) mmol/L Carbon Dioxide 26 (22-30) mmol/L Anion Gap 9 (4-12) mmol/L BUN 11 (7-17) mg/dL Creatinine 0.71 (0.7-1.0) mg/dL Estim Creat Clear Calc 90 ml/min Estimated GFR > 60 (59 - ) Glucose 140 H (65-110) mg/dL Lactic Acid 2.5 H (0.7-2.0) mmol/L Calcium 8.6 (8.4-10.2) mg/dL Total Bilirubin 0.9 (0.2-1.3) mg/dL AST 29 (14-36) U/L ALT 22 (6-35) U/L Alkaline Phosphatase 119 (38-126) U/L Total Protein 8.8 H (6.3-8.2) g/dL Albumin 4.1 (3.5-5.1) g/dL Urine Color Yellow (Yellow) Urine Appearance Clear (Clear) Urine pH 6.5 (5.0-9.0) Ur Specific [place] 1.015 (1.001-1.035) Urine Protein Negative (Negative) mg/dL Urine Glucose (UA) Negative (Negative) mg/dL Urine Ketones Negative (Negative) mg/dL Ur Blood (Man) Negative (Negative) Urine Nitrate Negative (Negative) Urine Bilirubin Negative (Negative) Urine Urobilinogen 1.0 (<2.0) mg/dL Leukocyte Esterase Rfl Negative (Negative) SYDNEE/UL Nasal MRSA (PCR) Not detected (NOT DETECTE) Influenza A (RT-PCR) Negative (Negative) Influenza B (RT-PCR) Negative (Negative) RSV (RT-PCR) Negative (Negative) SARS-CoV-2 RNA (RT-PCR) Negative (Negative) 06/07/25 Range/Units 00:26 WBC (4.5-10.0) K/mm3 RBC (4.2-5.4) M/mm3 Hgb (12.0-15.0) g/dL Hct (37.0-47.0) % MCV (80-100) fl MCH (26-34) pg MCHC (32-36) g/dl RDW (11.5-14.5) % Plt Count (150-375) k/mm3 MPV (7.4-10.4) fl Immature Gran % (Auto) (0-0.5) % Neut % (Auto) (45.5-73.1) % Lymph % (Auto) (18.3-44.2) % Gregory % (Auto) (2.6-8.5) % Eos % (Auto) (0-4.4) % Baso % (Auto) (0.2-1.2) % Lymph # (Auto) (0.9-3.2) K/mm3 Gregory # (Auto) (0.1-0.6) K/mm3 Eos # (Auto) (0-0.3) K/mm3 Baso # (Auto) (0.0-0.1) K/mm3 Abs Immat Gran (auto) (0.00-0.031) K/mm3 Absolute Neuts (auto) (1.3-6.7) K/mm3 Absolute Nucleated RBC (0.0-0.012) K/mm3 Nucleated RBC % (0.0-0.2) % Sodium (137-145) mmol/L Potassium (3.4-5.0) mmol/L Chloride (98-107) mmol/L Carbon Dioxide (22-30) mmol/L Anion Gap (4-12) mmol/L BUN (7-17) mg/dL Creatinine (0.7-1.0) mg/dL Estim Creat Clear Calc ml/min Estimated GFR (59 - ) Glucose (65-110) mg/dL Lactic Acid 1.9 (0.7-2.0) mmol/L Calcium (8.4-10.2) mg/dL Total Bilirubin (0.2-1.3) mg/dL AST (14-36) U/L ALT (6-35) U/L Alkaline Phosphatase (38-126) U/L Total Protein (6.3-8.2) g/dL Albumin (3.5-5.1) g/dL Urine Color (Yellow) Urine Appearance (Clear) Urine pH (5.0-9.0) Ur Specific [place] (1.001-1.035) Urine Protein (Negative) mg/dL Urine Glucose (UA) (Negative) mg/dL Urine Ketones (Negative) mg/dL Ur Blood (Man) (Negative) Urine Nitrate (Negative) Urine Bilirubin (Negative) Urine Urobilinogen (<2.0) mg/dL Leukocyte Esterase Rfl (Negative) SYDNEE/UL Nasal MRSA (PCR) (NOT DETECTE) Influenza A (RT-PCR) (Negative) Influenza B (RT-PCR) (Negative) RSV (RT-PCR) (Negative) SARS-CoV-2 RNA (RT-PCR) (Negative) Imaging Data Attestation: I personally reviewed and interpreted this imaging study as follows: My impression: Impressions Chest/Abdomen/Pelvis CT 06/06/25 22:57 IMPRESSION: No acute cardiopulmonary process. No pathologic enhancement is noted. No pathologically enlarged mediastinal lymphadenopathy is noted. CT abdomen and pelvis with contrast: Fatty infiltration of the liver is noted. No intrahepatic mass or ductal dilatation is evident. The gallbladder is unremarkable. The pancreas and spleen are normal in appearance. The adrenal glands are symmetric in size. There is atrophy of the left kidney with compensatory hypertrophy of the right kidney. No cystic mass is evident. There is no solid mass. There is no hydronephrosis. Noncontrast there are no bowel obstruction or evidence of acute appendicitis. The bladder and rectum are normal. No free intraperitoneal fluid or air is evident. There is no significant retroperitoneal lymphadenopathy. The aorta, visceral vessels and renal arteries demonstrate normal caliber and patency. The lower thoracic and lumbar vertebrae are in normal alignment. IMPRESSION: No acute abnormality is noted in the abdomen and pelvis. Atrophy of the left kidney with hypertrophy of the right kidney. All CT scans at this facility are performed using low dose modulation techniques as appropriate to perform exam including the following: automated exposure control; use of iterative reconstruction technique; adjustment of the mA and/or kV according to patient size (this includes techniques or standardized protocols for targeted exams where dose is matched to indication/reason for exam) Discharge Plan Discharge Clinical Impression: Cellulitis, Fever of unknown origin, Viral infection Patient Disposition: Home Condition: Stable Instructions: Antibiotic Form, Fever in Adults (ED) Additional Instructions: Laboratory studies show signs of an infection but your CT scans were all normal and unremarkable as well as urine showing no signs of infection. No signs of pneumonia or intra-abdominal or thoracic infection. Improvement with antibiotics and fluids. Tylenol and ibuprofen every 6-8 hours. We will send you home with antibiotics for 7 days. Follow-up with your primary care provider closely and return if you have any worsening or recurrent/new symptoms or concerns. Patient Language: Thai Prescriptions: New sulfamethoxazole-trimethoprim [Bactrim DS] 800-160 mg tablet 1 tablet PO Q12H Qty: 14 0RF No Action carvedilol 25 mg tablet BID levothyroxine 300 mcg tablet 350 DAILY levothyroxine 50 mcg tablet 350 DAILY amoxicillin-pot clavulanate [Augmentin] 875-125 mg tablet 1 tablet PO Q12H 10 Days Qty: 20 0RF ibuprofen 800 mg tablet 800 mg PO TID PRN (Reason: pain) 7 Days Qty: 21 0RF acetaminophen 500 mg tablet 1,000 mg PO TID PRN (Reason: jose) 7 Days Qty: 42 0RF sulfamethoxazole-trimethoprim [Bactrim DS] 800-160 mg tablet 1 tablet PO Q12H 7 Days Qty: 14 0RF furosemide [Lasix] 20 mg tablet 20 mg PO DAILY Qty: 7 0RF ondansetron 4 mg tablet,disintegrating 4 mg PO Q6H PRN (Reason: nausea and vomiting) 3 Days Qty: 12 0RF Follow-up/Referrals: Rodriguez,Ovidio Campos APRN [Primary Care Provider, Unknown] Stand Alone Forms: Work/School Release IP Time of Disposition: 05:10
[2025-06-06] MEDS: cefTRIAXone 2 GM in SODIUM CHLORIDE 0.9% IV 100 ML 200 ML IVPB (23:16)
[2025-06-07] VITALS (9 sets, daily range): BP systolic 104–142; BP diastolic 53–85; PULSE 87–108; RESP 12–24; TEMP 36.6; O2SAT 94–99
--- NOTE | 2025-06-07 00:02 | PC.NURSE ---
This RN went into pt room and noticed pt arm was bent. Pt was educated on importance of keeping arm straight for fluids and antibiotic to go through. Will start vancomycin when first antibiotic is done.
[2025-06-07 00:32] LABS: MRSA (PCR) NOT DETECTED (NOT DETECTE)
[2025-06-07] MEDS: VANCOMYCIN 1,250 MG/NS 250 ML 1,250 MG/250 ML BAG 166.67 MG IVPB (01:37)
== END 2025-06-07 05:59 | disposition home or self-care (01) ==
PROVIDERS: Emergency Provider Student in an Organized Health Care Education/Training Program; PCP Nurse Practitioner Family
DX: L03.116 Cellulitis of left lower limb (principal); L03.115 Cellulitis of right lower limb; R50.9 Fever, unspecified; B34.9 Viral infection, unspecified; Z20.822 Contact with and (suspected) exposure to COVID-19; I10 Essential (primary) hypertension; E03.9 Hypothyroidism, unspecified
CPT/HCPCS: 36415; 71260; 74177; 80053; 81003; 83605; 85025; 87637; 87641; 96361; 96365; 96367; 99284; A9270; J0696; J3373; J7120; Q9967

== ENCOUNTER 2025-07-19 05:26 | Day surgery (SDC) | payer SELFPAY ==
[2025-07-19] VITALS (17 sets, daily range): BP systolic 139–190; BP diastolic 74–105; PULSE 60–86; RESP 13–22; TEMP 36.4–36.9; O2SAT 86–100
--- NOTE | ~2025-07-19 | CT_ITS ---
CT abdomen pelvis w con Clinical History: abd pain . Comparison: 06/06/2025 Technique: Axial images lung bases to symphysis pubis IV contrast information not listed in PACS Coronal, sagittal reformats CT images acquired with automatic exposure control for dose reduction DLP: 1361 mGy-cm Findings: Lung bases: 3 mm nodule lateral segment right middle lobe. Visualized heart and pericardium: Coronary artery calcification. Liver: Enlarged. Steatosis. Gallbladder: Unremarkable. Spleen: Unremarkable. Pancreas: Unremarkable. Adrenal glands: Unremarkable. Kidneys: Right kidney-compensatory hypertrophy. Hydronephrosis. No renal stones. Left kidney-severe atrophy. Distal esophagus/stomach: Unremarkable. Small bowel loops: Normal caliber and wall thickness. Colon: Right hemicolectomy. Nodes: Retroperitoneal and right iliac chain nodes. Inguinal nodes. Peritoneum: No ascites. No free air. Small omental infarct right upper quadrant. Urinary bladder: 5 mm stone right UVJ. Uterus: Unremarkable. Adnexa: No masses. Bones: No acute bony abnormality. Soft tissues: Left abdominal wall focal induration. Aorta: No aneurysm or dissection. IVC: Unremarkable. Main portal vein/SMV/splenic vein: Patent. IMPRESSION: 1. 5 mm stone right UVJ with hydronephrosis. 2. Improving but persistent retroperitoneal lymph nodes. Recommend continued surveillance. Reviewed, dictated and finalized at location R. CUTTER APPRENTICE IMPRESSION: 1. 5 mm stone right UVJ with hydronephrosis. 2. Improving but persistent retroperitoneal lymph nodes. Recommend continued s urveillance.
--- NOTE | ~2025-07-19 | XR_ITS ---
EXAMINATION: XR retrograde pyelo w/stent RT DATE: 07/19/2025 11:35 INDICATION: Obstructing right ureterovesicular junction stone with mild right hydronephrosis. TECHNIQUE: 2 fluoroscopic images of the abdomen and pelvis were obtained procedure performed by Dr. Whiting. Radiologist was not present for the imaging or procedure. The amount of fluoroscopy time used during this procedure was 0.2 minutes. The dose area product was 0.306 mGym^2. COMPARISON: CT dated 07/19/2025 FINDINGS: Right internal ureteral stent with loops formed in the right renal pelvis and in the bladder. There are some contrast within the right renal collecting system which demonstrates persistent mild hydronephrosis. The stone previously seen at the right ureterovesicular junction is not visualized and may have been extracted. Multiple phleboliths in the pelvis. IMPRESSION: 1. Right internal ureteral stent in expected position with mild right hydronephrosis. There is a obstructing stone at the right ureterovesicular junction is not identified and may have been extracted. Correlate with procedure note for further detail. Reviewed, dictated and finalized at location A. NE LATHE TENDER IMPRESSION: 1. Right internal ureteral stent in expected position with mild right hydroneph rosis. There is a obstructing stone at the right ureterovesicular junction is n ot identified and may have been extracted. Correlate with procedure note for fu rther detail.
--- NOTE | 2025-07-19 05:42 | ED.ABDPAIN ---
HPI - Abdominal Pain General Chief Complaint: Abdominal Pain <Pratik Chinchilla MD - Last Filed: 07/19/25 07:12> Stated Complaint: Abd pain/Diarrhea <Pratik Chinchilla MD - Last Filed: 07/19/25 07:12> Time Seen by Provider: 07/19/25 05:41 <Pratik Chinchilla MD - Last Filed: 07/19/25 07:12> History of Present Illness HPI narrative: 54-year-old female with history of colon cancer status post resection in March presenting to the emergency department today with complaints of abdominal pain that woke her up from sleep associated with multiple episodes of diarrhea and 1 episode nauseousness without vomiting. Denies any chest pain, fever, chills. Thinks it could be COVID or something similar. She has been having liquid diarrhea for several times and called ambulance for assistance. Denies any recent antibiotics or recent health concerns. She has chronic lymphedema bilaterally without any acute concerns. Denies any shakes, fever, chills, fatigue or body aches. No traumatic injuries or recent health issues. <Pratik Chinchilla MD - Last Filed: 07/19/25 07:12> Related Data Home Medications: Home Medications ?Medication ?Instructions ?Recorded ?Confirmed ?Last Taken ?Type carvedilol 25 mg tablet BID 04/29/20 06/20/20 History levothyroxine 300 mcg tablet 350 DAILY 04/29/20 Unknown History levothyroxine 50 mcg tablet 350 DAILY 04/29/20 06/20/20 History <Pratik Chinchilla MD - Last Filed: 07/19/25 07:12> Allergies/Adverse Reactions: Allergies Allergy/AdvReac Type Severity Reaction Status Date / Time lisinopril Allergy Intermediate leg Verified 07/19/25 05:54 swelling morphine AdvReac Mild Nausea and Verified 07/19/25 05:54 Vomiting <Pratik Chinchilla MD - Last Filed: 07/19/25 07:12> Review of Systems Review of Systems: As reviewed above in HPI <Pratik Chinchilla MD - Last Filed: 07/19/25 07:12> All systems reviewed & are unremarkable except as noted in HPI and below <Pratik Chinchilla MD - Last Filed: 07/19/25 07:12> [facility] Past Medical History Medical History: Medical History Swelling of both lower extremities 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 Hypertension <Pratik Chinchilla MD - Last Filed: 07/19/25 07:12> Surgical History Surgical History: Surgical History History of dental surgery History of ankle surgery Right, x5 History of ear surgery Left, x4 Hx of appendectomy <Pratik Chinchilla MD - Last Filed: 07/19/25 07:12> Family History Family History: Family History Father Alive and well Mother Hypertension <Pratik Chinchilla MD - Last Filed: 07/19/25 07:12> Social History Social History: Social History Smoking status: Never smoker Tobacco type: cigarettes Second hand tobacco smoke exposure: Yes Alcohol intake: never Substance use: never Living arrangements: with family Occupation/Education: occupation Gender identity (if verbalized by the patient): Female Spiritual care concerns: No <Pratik Chinchilla MD - Last Filed: 07/19/25 07:12> Exam Narrative: GENERAL: morbidly obese but not any acute distress. Awake and answering questions appropriately. HEAD: [Normocephalic, atraumatic.] EYES: [PERRLA and EOMI.] ENT: Nares clear, no rhinorrhea or epistaxis. Mucous membranes moist. NECK: Supple. CHEST: [Clear to auscultation. No respiratory distress.] HEART: [Regular rate and rhythm]. No murmur heard. [Normal peripheral pulses.] ABDOMEN: Soft and nondistended, tender to palpation without any rebound, guarding, peritonitis. Surgical scars are clean and intact EXTREMITIES: Chronic appearing bilateral lymphedema with woody like appearance of both legs. No weepage of fluid drainage. SKIN: Warm, dry, no rash. NEURO: [No focal deficits]. Alert and oriented [x3.] PSYCH: [Normal mood and affect.] <Pratik Chinchilla MD - Last Filed: 07/19/25 07:12> Course Reevaluation(s) Reevaluation #1: Patient had pain to her right flank to groin again, medications ordered, CT returned showing right 5 mm UVJ stone, I will give a dose of antibiotics, as there is some WBCs and bacteria, called to urologist with plan for stent placement today. Patient updated on plan. Discussed with hospitalist for admission. <Ashly De Leon MD - Last Filed: 07/19/25 09:17> Vital Signs Vital signs: Vital Signs Temperature 97.8 F 07/19/25 05:42 Pulse Rate 66 07/19/25 05:42 Respiratory Rate 20 07/19/25 05:42 Blood Pressure 183/91 H 07/19/25 05:42 Pulse Oximetry 92 07/19/25 05:42 Oxygen Delivery Room Air 07/19/25 05:42 Temperature 97.8 F 07/19/25 05:42 Pulse Rate 70 07/19/25 08:02 Respiratory Rate 17 07/19/25 08:01 Blood Pressure 182/105 H 07/19/25 08:01 Pulse Oximetry 93 07/19/25 08:01 Oxygen Delivery Room Air 07/19/25 05:42 <Pratik Chinchilla MD - Last Filed: 07/19/25 07:12> Vital Signs Temperature 97.8 F 07/19/25 05:42 Pulse Rate 66 07/19/25 05:42 Respiratory Rate 20 07/19/25 05:42 Blood Pressure 183/91 H 07/19/25 05:42 Pulse Oximetry 92 07/19/25 05:42 Oxygen Delivery Room Air 07/19/25 05:42 Temperature 97.8 F 07/19/25 05:42 Pulse Rate 70 07/19/25 08:02 Respiratory Rate 17 07/19/25 08:01 Blood Pressure 182/105 H 07/19/25 08:01 Pulse Oximetry 93 07/19/25 08:01 Oxygen Delivery Room Air 07/19/25 05:42 <Ashly De Leon MD - Last Filed: 07/19/25 09:17> [facility] Narrative Medical decision making narrative: 54-year-old female with history of colon cancer status post resection in March presenting to the emergency department today with complaints of abdominal pain that woke her up from sleep associated with multiple episodes of diarrhea and 1 episode nauseousness without vomiting. Denies any chest pain, fever, chills. Thinks it could be COVID or something similar. She has been having liquid diarrhea for several times and called ambulance for assistance. Denies any recent antibiotics or recent health concerns. She has chronic lymphedema bilaterally without any acute concerns. Denies any shakes, fever, chills, fatigue or body aches. No traumatic injuries or recent health issues. She has a soft, nondistended, tender abdomen but no signs of peritonitis. She is not any distress and overall well-appearing. Symptoms only going on for several hours. Low suspicion significant intra-abdominal abscess or infection but she does have a recent surgical history. Possibility of viral gastroenteritis, colitis, COVID, flu, diverticulitis. Laboratory studies obtained she was given Dilaudid, Pepcid, Zofran fluids. Patient re-evaluated after initial medications and only had mild improvement. She is still having abdominal pain. Abdominal examination largely remains benign but will go ahead and obtain a CT scan at this time. She is given Bentyl for additional pain control. Lab showed no leukocytosis or anemia worse than baseline. Electrolytes are largely unremarkable. Patient care signed over to morning physician pending CT scan. <Pratik Chinchilla MD - Last Filed: 07/19/25 07:12> Differential Diagnosis Differential Diagnosis: Low suspicion significant intra-abdominal abscess or infection but she does have a recent surgical history. Possibility of viral gastroenteritis, colitis, COVID, flu, diverticulitis. <Pratik Chinchilla MD - Last Filed: 07/19/25 07:12> Lab Data [facility] Lab Attestation statement: I personally reviewed the patient's lab results. <Pratik Chinchilla MD - Last Filed: 07/19/25 07:12> Result diagrams: 07/19/25 05:51 07/19/25 05:51 <Pratik Chinchilla MD - Last Filed: 07/19/25 07:12> Labs: Lab Results 07/19/25 07/19/25 Range/Units 05:51 07:30 WBC 9.4 (4.5-10.0) K/mm3 RBC 3.85 L (4.2-5.4) M/mm3 Hgb 9.1 L (12.0-15.0) g/dL Hct 31.7 L (37.0-47.0) % MCV 82.3 (80-100) fl MCH 23.6 L (26-34) pg MCHC 28.7 L (32-36) g/dl RDW 15.9 H (11.5-14.5) % Plt Count 299 (150-375) k/mm3 MPV 9.0 (7.4-10.4) fl Immature Gran % (Auto) 0.5 (0-0.5) % Neut % (Auto) 77.3 H (45.5-73.1) % Lymph % (Auto) 13.5 L (18.3-44.2) % Andrew % (Auto) 4.9 (2.6-8.5) % Eos % (Auto) 3.4 (0-4.4) % Baso % (Auto) 0.4 (0.2-1.2) % Lymph # (Auto) 1.27 (0.9-3.2) K/mm3 Andrew # (Auto) 0.5 (0.1-0.6) K/mm3 Eos # (Auto) 0.3 (0-0.3) K/mm3 Baso # (Auto) 0.0 (0.0-0.1) K/mm3 Abs Immat Gran (auto) 0.05 H (0.00-0.031) K/mm3 Absolute Neuts (auto) 7.3 H (1.3-6.7) K/mm3 Absolute Nucleated RBC 0.000 (0.0-0.012) K/mm3 Band Neutrophils % Not Reportable Nucleated RBC % 0.0 (0.0-0.2) % Platelet Estimate Adequate (Adequate) Hypochromasia Occasional Schistocytes None seen Sodium 136 L (137-145) mmol/L Potassium 3.8 (3.4-5.0) mmol/L Chloride 104 (98-107) mmol/L Carbon Dioxide 26 (22-30) mmol/L Anion Gap 6 (4-12) mmol/L BUN 17 (7-17) mg/dL Creatinine 0.77 (0.7-1.0) mg/dL Estim Creat Clear Calc 81 ml/min Estimated GFR > 60 (59 - ) Glucose 181 H (65-110) mg/dL Calcium 8.7 (8.4-10.2) mg/dL Total Bilirubin 0.4 (0.2-1.3) mg/dL AST 28 (14-36) U/L ALT 23 (6-35) U/L Alkaline Phosphatase 97 (38-126) U/L Total Protein 8.1 (6.3-8.2) g/dL Albumin 3.8 (3.5-5.1) g/dL Lipase 63 (23-300) U/L Urine Color Yellow (Yellow) Urine Appearance Turbid H (Clear) Urine pH 5.5 (5.0-9.0) Ur Specific Dixon 1.020 (1.001-1.035) Urine Protein 2+ H (Negative) mg/dL Urine Glucose (UA) Negative (Negative) mg/dL Urine Ketones Negative (Negative) mg/dL Ur Blood (Man) 3+ H (Negative) Urine Nitrate Negative (Negative) Urine Bilirubin Negative (Negative) Urine Urobilinogen 1.0 (<2.0) mg/dL Add Ur Microanalysis Reviewed Leukocyte Esterase Rfl Trace H (Negative) SYDNEE/UL Urine RBC >100 H (0-2) /hpf Urine WBC 21-50 H (0-3) /hpf Ur Squamous Epith Cells Moderate (Few) /hpf Urine Bacteria 1+ H /hpf Urine Casts 11-20 Influenza A (RT-PCR) Negative (Negative) Influenza B (RT-PCR) Negative (Negative) RSV (RT-PCR) Negative (Negative) SARS-CoV-2 RNA (RT-PCR) Negative (Negative) <Pratik Chinchilla MD - Last Filed: 07/19/25 07:12> Lab Results 07/19/25 07/19/25 Range/Units 05:51 07:30 WBC 9.4 (4.5-10.0) K/mm3 RBC 3.85 L (4.2-5.4) M/mm3 Hgb 9.1 L (12.0-15.0) g/dL Hct 31.7 L (37.0-47.0) % MCV 82.3 (80-100) fl MCH 23.6 L (26-34) pg MCHC 28.7 L (32-36) g/dl RDW 15.9 H (11.5-14.5) % Plt Count 299 (150-375) k/mm3 MPV 9.0 (7.4-10.4) fl Immature Gran % (Auto) 0.5 (0-0.5) % Neut % (Auto) 77.3 H (45.5-73.1) % Lymph % (Auto) 13.5 L (18.3-44.2) % Andrew % (Auto) 4.9 (2.6-8.5) % Eos % (Auto) 3.4 (0-4.4) % Baso % (Auto) 0.4 (0.2-1.2) % Lymph # (Auto) 1.27 (0.9-3.2) K/mm3 Andrew # (Auto) 0.5 (0.1-0.6) K/mm3 Eos # (Auto) 0.3 (0-0.3) K/mm3 Baso # (Auto) 0.0 (0.0-0.1) K/mm3 Abs Immat Gran (auto) 0.05 H (0.00-0.031) K/mm3 Absolute Neuts (auto) 7.3 H (1.3-6.7) K/mm3 Absolute Nucleated RBC 0.000 (0.0-0.012) K/mm3 Band Neutrophils % Not Reportable Nucleated RBC % 0.0 (0.0-0.2) % Platelet Estimate Adequate (Adequate) Hypochromasia Occasional Schistocytes None seen Sodium 136 L (137-145) mmol/L Potassium 3.8 (3.4-5.0) mmol/L Chloride 104 (98-107) mmol/L Carbon Dioxide 26 (22-30) mmol/L Anion Gap 6 (4-12) mmol/L BUN 17 (7-17) mg/dL Creatinine 0.77 (0.7-1.0) mg/dL Estim Creat Clear Calc 81 ml/min Estimated GFR > 60 (59 - ) Glucose 181 H (65-110) mg/dL Calcium 8.7 (8.4-10.2) mg/dL Total Bilirubin 0.4 (0.2-1.3) mg/dL AST 28 (14-36) U/L ALT 23 (6-35) U/L Alkaline Phosphatase 97 (38-126) U/L Total Protein 8.1 (6.3-8.2) g/dL Albumin 3.8 (3.5-5.1) g/dL Lipase 63 (23-300) U/L Urine Color Yellow (Yellow) Urine Appearance Turbid H (Clear) Urine pH 5.5 (5.0-9.0) Ur Specific Dixon 1.020 (1.001-1.035) Urine Protein 2+ H (Negative) mg/dL Urine Glucose (UA) Negative (Negative) mg/dL Urine Ketones Negative (Negative) mg/dL Ur Blood (Man) 3+ H (Negative) Urine Nitrate Negative (Negative) Urine Bilirubin Negative (Negative) Urine Urobilinogen 1.0 (<2.0) mg/dL Add Ur Microanalysis Reviewed Leukocyte Esterase Rfl Trace H (Negative) SYDNEE/UL Urine RBC >100 H (0-2) /hpf Urine WBC 21-50 H (0-3) /hpf Ur Squamous Epith Cells Moderate (Few) /hpf Urine Bacteria 1+ H /hpf Urine Casts 11-20 Influenza A (RT-PCR) Negative (Negative) Influenza B (RT-PCR) Negative (Negative) RSV (RT-PCR) Negative (Negative) SARS-CoV-2 RNA (RT-PCR) Negative (Negative) <Ashly De Leon MD - Last Filed: 07/19/25 09:17> Imaging Data Radiologist's impression: ITS Impressions Abdomen/Pelvis CT 07/19/25 07:52 IMPRESSION: 1. 5 mm stone right UVJ with hydronephrosis. 2. Improving but persistent retroperitoneal lymph nodes. Recommend continued surveillance. <Pratik Chinchilla MD - Last Filed: 07/19/25 07:12> ITS Impressions Abdomen/Pelvis CT 07/19/25 07:52 IMPRESSION: 1. 5 mm stone right UVJ with hydronephrosis. 2. Improving but persistent retroperitoneal lymph nodes. Recommend continued surveillance. <Ashly De Leon MD - Last Filed: 07/19/25 09:17> Discharge Plan Discharge Clinical Impression: Calculus of ureterovesical junction (UVJ) <Pratik Chinchilla MD - Last Filed: 07/19/25 07:12> Patient Disposition: Still a Patient <Pratik Chinchilla MD - Last Filed: 07/19/25 07:12> Condition: Stable <Pratik Chinchilla MD - Last Filed: 07/19/25 07:12> Patient Language: Micronesian <Pratik Chinchilla MD - Last Filed: 07/19/25 07:12> Prescriptions: New dicyclomine 20 mg tablet 20 mg PO TID PRN (Reason: abdominal pain) Qty: 20 0RF ondansetron 4 mg tablet,disintegrating 4 mg PO Q8H PRN (Reason: nausea and vomiting) Qty: 15 0RF No Action carvedilol 25 mg tablet BID levothyroxine 300 mcg tablet 350 DAILY levothyroxine 50 mcg tablet 350 DAILY amoxicillin-pot clavulanate [Augmentin] 875-125 mg tablet 1 tablet PO Q12H 10 Days Qty: 20 0RF ibuprofen 800 mg tablet 800 mg PO TID PRN (Reason: pain) 7 Days Qty: 21 0RF acetaminophen 500 mg tablet 1,000 mg PO TID PRN (Reason: joes) 7 Days Qty: 42 0RF sulfamethoxazole-trimethoprim [Bactrim DS] 800-160 mg tablet 1 tablet PO Q12H 7 Days Qty: 14 0RF furosemide [Lasix] 20 mg tablet 20 mg PO DAILY Qty: 7 0RF sulfamethoxazole-trimethoprim [Bactrim DS] 800-160 mg tablet 1 tablet PO Q12H Qty: 14 0RF ondansetron 4 mg tablet,disintegrating 4 mg PO Q6H PRN (Reason: nausea and vomiting) 3 Days Qty: 12 0RF <Pratik Chinchilla MD - Last Filed: 07/19/25 07:12> Follow-up/Referrals: Rodriguez,Ovidio Campos APRN [Non-Staff, Unknown] <Pratik Chinchilla MD - Last Filed: 07/19/25 07:12>
[2025-07-19] MEDS: ONDANSETRON INJ 4 MG/2 ML VIAL IV PUSH ×2 (05:52→09:09)
[2025-07-19] MEDS: FAMOTIDINE 20 MG/2 ML VIAL IV PUSH (05:52)
[2025-07-19] MEDS: HYDROmorphone HCL INJ (*CRX) 1 MG/ML SYR 0.5 MG IV PUSH ×2 (05:52→09:12)
[2025-07-19] MEDS: LACTATED RINGERS 1,000 ML 999 ML IV CONT (05:52)
[2025-07-19 05:58] LABS: Hematocrit 31.7 % (37.0-47.0); Hemoglobin 9.1 g/dL (12.0-15.0); Immature Granulocyte Percent A 0.5 % (0-0.5); Lymphocytes Absolute Auto 1.27 K/mm3 (0.9-3.2); Mean Corpuscular HGB Conc 28.7 g/dl (32-36); Mean Corpuscular Hemoglobin 23.6 pg (26-34); Mean Corpuscular Volume 82.3 fl (80-100); Nucleated Red Blood Cells Absolute Auto 0.000 K/mm3 (0.0-0.012); Nucleated Red Blood Cells Perc 0.0 % (0.0-0.2); Platelet Count Result 299 k/mm3 (150-375); Red Blood Count 3.85 M/mm3 (4.2-5.4); White Blood Count 9.4 K/mm3 (4.5-10.0)
--- OUTSIDE RECORDS SUMMARY | 2025-07-19 06:01 | XMS_ITS | Clinical Summary ---
Author Organization [facility] Address [facility] [place] [address] Care Team Providers Care Supervisor Advice Name Role Phone Shilpa Grady MD Primary Care Provider [phone] Allergies Active Allergy Reactions Criticality Noted Date [...] Sex Assigned at Female 09/16/2024 8:20 AM TEAR DOWN MATCHER Legal Sex Female 1:14 PM CDT Gender Identity Not on file Sexual Orientation Not on file Last Filed Vital Signs Vital Sign Reading Time Taken Comments Blood Pressure 170/100 09/16/2024 9:01 AM TEAR DOWN MATCHER Pulse 86 09/16/2024 9:01 AM TEAR DOWN MATCHER Temperature - - Respiratory Rate - - Oxygen Saturation - - Inhaled Oxygen Concentration - - Weight 118 kg (260 lb 3.2 oz) 09/16/2024 9:01 AM TEAR DOWN MATCHER Height 154.9 cm (5' 1) 09/16/2024 9:01 AM TEAR DOWN MATCHER Body Mass Index 49.16 09/16/2024 9:01 AM TEAR DOWN MATCHER Plan of Treatment Upcoming Encounters Date Type Department Care Team (Late st Contact Info) Description 08/11/2025 3:15 PM TEAR DOWN MATCHER Office Visit [facility], [facility] [address] [place] [address] Duane Medina MD [facility]. [facility] [address], [place] [id number] Health Maintenance Due Date Last Done Comments [...] to complete this topic Insurance Care Teams Supervisor Advice Relationship Specialty Start Date End Date Shilpa Grady MD [address] [place] [address] PCP - General FAMILY PRACTICE 07/02/23
--- OUTSIDE RECORDS SUMMARY | 2025-07-19 06:01 | XMS_ITS | Clinical Summary ---
Author Organization [facility] Office Center Address [address] [place] [address] Care Team Providers Care Cement Storage Worker Name Role Phone Starr Roberson Unavailable [phone] Viky Sanchez MD, William C. Unavailable Quinton Garcia MD Unavailable [phone] Artem Wyman MD Unavailable [phone] Liz Spain NP Primary Care Provider Allergies Active Allergy Reactions Criticality Noted Date Comments Lisinopril Swelling Medium 02/07/2020 Leg swelling Morphine Dizziness,Nausea & Vomiting Medium Semaglutide Swelling Medium 03/02/2025 Ozempic-Leg swelling Medications levothyroxine (SYNTHROID) 300 mcg tablet Take 1 tablet (300 mcg total) by mouth transportation technician before breakfast W/50 mcg tab for total of 350mcg/day Active levothyroxine (SYNTHROID) 50 mcg tablet Take 1 tablet (50 mcg total) by mouth transportation technician before breakfast W/300 mcg tab for total [...] Type Department Care Team Description 04/19/[address] [facility] Medicine Surgery [address] [place] [address] Medical Office Building [address] [place] [address] Savannah Rowley RN from Last 3 Months Surgical History Surgery [...] on file Legal Sex Female 3:36 AM MANAGER ETHICS Gender Identity Not on file Sexual Orientation [...] 08/01/2021, 09/22/2020, 09/01/2020 Influenza Vaccine (#1) 2025 , 05/05/2023, 07/19/2022, Additional history exists Colon Cancer Screening-Colonoscopy 12/22/2034 12/22/2024 Colon Cancer Screening-CT Colonography Discontinued 12/22/2024 Colon Cancer Screening-DNA Stool Discontinued 12/23/19 Colon Cancer Screening-FIT Discontinued 12/22/2024 Colon Cancer Screening-Sigmoidoscopy Discontinued 12/22/2024 Procedures Procedure Name Priority Date/Time Associated Diagnosis Comments COLONOSCOPY 12/22/2024 8:14 AM CDT from Last 3 Months or Most Recently Relevant to Health Maintenance Results * Colonoscopy (12/22/2024 8:14 AM CDT) Anatomical Region Laterality Modality Other Narrative Procedure Note Artem Wyman MD - 12/22/2024 8:14 AM CDT ENDOSCOPY LAB Patient Name: Kassy Daniels Procedure Date: 12/22/2024 8:14 AM Admit Type: Outpatient Room: [facility] Date of : 1970 Instrument Name: [...] Referring MD: Alessia Segura M.D., Puja Jessica, PALLAVI Medicines: General Anesthesia Complications: No immediate complications. [...] a partially obstructing, fungating, large mass extending [id number] in length. There were multiple areas of [...] mass. Patient prefers to be referred at [facility] and we will arrange this. - Resume home medications and diet. - Return to primary care physician as previously scheduled. - In the unusual situation that you developabdominal pain, bleeding or other significant problems in the days following this procedure please call my officeat [phone] ([phone]) to speak to my nurses. After hours and evenings please call [phone] speak to the GI fellow section laborer. Please tell themthat Dr. Wyman did your procedure and that your were instructed to have the fellow call me or thephysician covering for me to discuss the management of your condition. If you have an urgent problem, please goto the nearest emergency room and have the ER doctorcall my office during the day or [facility] transfer ([phone]) center after hours and weekends to arrange admission or transfer to our facility. - Call my nurse Lisa Bustos RN in the GI office at [phone] for your final pathology results in 7 days. - Repeat colonoscopy. Attending Participation: I personally performed the entire procedure. Electronically Signed By: Artem Wyman M.D. Artem Wyman M.D. 12/22/2024 10:28:46 AM This document was signed electronically. Number of Addenda: 0 Note Initiated On: 12/22/2024 8:14 AM Scope Withdrawal Time: 0 hours 14 minutes 56 seconds Scope In: 9:08:05 AM Scope Out: 9:25:18 AM Artem Wyman MD ENDOSCOPY PROCEDURES Final Result from Last 3 Months or Most Recently Relevant to Health Maintenance Insurance [place] [address] [address] [place] Direct[place] For more information, please contact: [phone] * Full Code (Latest Code Status on File) Date Activated Date Inactivated Comments 03/15/2025 4:11 PM 03/19/2025 5:00 PM * Full Code Date Activated Date Inactivated Comments 12/22/2024 7:49 AM 12/22/2024 3:06 PM Care Teams Cement Storage Worker Relationship Specialty Start Date End Date Liz Spain NP [address] [place] [address] PCP - General Family Medicine 01/11/25 Starr Roberson PA [address] [place] [address] 07/21/24 Dov Salmon Jr., MD [address] [facility] [phone] [place] [address] Consulting Physician Colon and Rectal Surgery 01/06/25 Quinton Garcia MD [address] [place] [address] Consulting Physician Cardiology 01/06/25 Artem Wyman MD [address] [place] [address] Referring Physician Gastroenterology 01/06/25
[2025-07-19 06:17] LABS: Alanine Aminotransferase 23 U/L (6-35); Albumin Level 3.8 g/dL (3.5-5.1); Alkaline Phosphatase 97 U/L (38-126); Anion Gap 6 mmol/L (4-12); Aspartate Amino Transferase 28 U/L (14-36); Bilirubin,Total 0.4 mg/dL (0.2-1.3); Blood Urea Nitrogen 17 mg/dL (7-17); Calcium 8.7 mg/dL (8.4-10.2); Carbon Dioxide 26 mmol/L (22-30); Chloride 104 mmol/L (98-107); Estimated CRCL calculation 81 ml/min; Estimated Glomerular Filt Rate > 60; Glucose 181 mg/dL (65-110); Lipase 63 U/L (23-300); Potassium 3.8 mmol/L (3.4-5.0); Sodium 136 mmol/L (137-145); Total Protein 8.1 g/dL (6.3-8.2)
[2025-07-19 06:28] LABS: Hypochromasia Occasional; Schistocytes None Seen
[2025-07-19 06:32] LABS: Influenza A QL RT-PCR Negative (Negative); Influenza B QL RT-PCR Negative (Negative); RSV RNA, RT-PCR Negative (Negative); SARS-CoV-2 RNA PCR Negative (Negative)
[2025-07-19] MEDS: DICYCLOMINE HCL INJ 20 MG/2 ML VIAL IM (07:23)
--- NOTE | 2025-07-19 07:32 | PC.NURSE ---
Report given at 0796
[2025-07-19 07:52] LABS: Add Urine Microscopic? YES; Appearance Urine Turbid (Clear); Glucose Urine UA Negative (Negative); Leukocyte Esterase Ur Trace LEU/UL (Negative); Need Manual Microscopic Reviewed; Nitrate Urine Negative (Negative); Specific Grav Ur 1.020 (1.001-1.035)
--- NOTE | 2025-07-19 07:55 | PC.NURSE ---
EDP aware of elevated BP, see MAR
[2025-07-19] MEDS: LOSARTAN POTASSIUM 100 MG TABLET PO (08:02)
[2025-07-19] MEDS: cefTRIAXone 1 GM in SODIUM CHLORIDE 0.9% IV 50 ML 100 ML IVPB (08:13)
--- NOTE | 2025-07-19 09:28 | WPDURCON ---
Assessment and Plan Assessment and plan (1) Calculus of ureterovesical junction (UVJ): Code(s): N20.1 - Calculus of ureter <DONG Ellison - Last Filed: 07/19/25 09:53> Status: Acute <DONG Ellison - Last Filed: 07/19/25 09:53> Assessment and Plan: - Pt with 5mm Right UVJ stone with upstream hydro; considering this is a functionally solitary kidney recommend cysto, stone extraction and Right ureteral stent placement. Discussed risks/benefits of surgery with pt and she voices her understanding and is amenable to plan. - Cysto, Right URS, Right ureteral stent placement with Dr. Whiting today <DONG Elliosn - Last Filed: 07/19/25 09:53> (2) Hydronephrosis: Qualifiers: Hydronephrosis type: other Qualified Code(s): N13.39 - Other hydronephrosis <DONG Ellison - Last Filed: 07/19/25 09:53> Code(s): N13.30 - Unspecified hydronephrosis <DONG Ellison - Last Filed: 07/19/25 09:53> Status: Acute <DONG Ellison - Last Filed: 07/19/25 09:53> Assessment and Plan: - In the setting of ureteral stone; management as above - Creatinine stable <DONG Ellison - Last Filed: 07/19/25 09:53> (3) Abnormal urinalysis: Code(s): R82.90 - Unspecified abnormal findings in urine <DONG Ellison - Last Filed: 07/19/25 09:53> Status: Acute <DONG Ellison - Last Filed: 07/19/25 09:53> Assessment and Plan: - May reflect UTI, however, most consistent with contamination/inflammatory changes related to ureteral stone - Cover with broad spectrum Abx in the setting of cystoscopic surgery - UCx pending <DONG Ellison - Last Filed: 07/19/25 09:53> Urology Consult Note HPI Date Seen: 07/19/25 <DONG Ellison - Last Filed: 07/19/25 09:53> 07/19/25 <Vinicio Whiting MD - Last Filed: 07/19/25 10:42> Primary Care Provider: NOZZLE WORKER PHYSICIAN <DONG Ellison - Last Filed: 07/19/25 09:53> Consult Narrative Narrative: Pt is a 54 year old F with Hx of colon cancer s/p resection (03/2025) and severely atrophic Left kidney who presented to the ED with flank pain found to have 5 mm Right UVJ stone for whom urology is consulted for further management. Pt states that at 2 AM this morning she experienced acute onset of flank pain associated with nausea and vomiting. Found to have stone as described above. Pt still with significant pain and nausea currently; receiving analgesics and nausea medications at the time of interview. <DONG Ellison - Last Filed: 07/19/25 09:53> Review of Systems Constitutional: Constitutional: Reports body ache(s) and Reports lethargy <DONG Ellison - Last Filed: 07/19/25 09:53> ENT: Reports Normal hearing present <DONG Ellison - Last Filed: 07/19/25 09:53> Cardiovascular: Cardiovascular: Denies chest pain <DONG Ellison - Last Filed: 07/19/25 09:53> Respiratory: Respiratory: Denies cough and Denies wheezing <DONG Ellison - Last Filed: 07/19/25 09:53> Gastrointestinal: Gastrointestinal: Reports abdominal pain, Reports nausea and Reports vomiting <DONG Ellison - Last Filed: 07/19/25 09:53> Genitourinary: Genitourinary: Reports flank pain <DONG Ellison - Last Filed: 07/19/25 09:53> FORMERLY [facility] Past Medical History Medical History: Medical History Swelling of both lower extremities 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 Hypertension <DONG Ellison - Last Filed: 07/19/25 09:53> Surgical History Surgical History: Surgical History History of dental surgery History of ankle surgery Right, x5 History of ear surgery Left, x4 Hx of appendectomy <DONG Ellison - Last Filed: 07/19/25 09:53> Family History Family History: Family History Father Alive and well Mother Hypertension <DONG Ellison - Last Filed: 07/19/25 09:53> Social History Social History: Social History Smoking status: Never smoker Tobacco type: cigarettes Second hand tobacco smoke exposure: Yes Alcohol intake: never Substance use: never Living arrangements: with family Occupation/Education: occupation Gender identity (if verbalized by the patient): Female Spiritual care concerns: No <DONG Ellison - Last Filed: 07/19/25 09:53> Meds Home Medications and Allergies Home medications: Home Medications ?Medication ?Instructions ?Recorded ?Confirmed ?Type carvedilol 25 mg tablet BID 04/29/20 History levothyroxine 300 mcg tablet 350 DAILY 04/29/20 History levothyroxine 50 mcg tablet 350 DAILY 04/29/20 History amoxicillin 875 mg-potassium 1 tablet PO Q12H 10 days #20 tabs 01/26/21 Rx clavulanate 125 mg tablet (Augmentin) acetaminophen 500 mg tablet 1,000 mg (2 x 500 mg) PO TID PRN 07/12/22 Rx jose 7 days #42 tabs ibuprofen 800 mg tablet 800 mg PO TID PRN pain 7 days #21 07/12/22 Rx tabs ondansetron 4 mg disintegrating 4 mg PO Q6H PRN nausea and 07/20/23 Rx tablet vomiting 3 days #12 tabs sulfamethoxazole 800 1 tablet PO Q12H 7 days #14 tabs 01/09/24 Rx mg-trimethoprim 160 mg tablet (Bactrim DS) furosemide 20 mg tablet (Lasix) 20 mg PO DAILY #7 tabs 03/13/24 Rx sulfamethoxazole 800 1 tablet PO Q12H #14 tabs 06/07/25 Rx mg-trimethoprim 160 mg tablet (Bactrim DS) dicyclomine 20 mg tablet 20 mg PO TID PRN abdominal pain 07/19/25 Rx #20 tabs ondansetron 4 mg disintegrating 4 mg PO Q8H PRN nausea and 07/19/25 Rx tablet vomiting #15 tabs <DONG Ellison Last Filed: 07/19/25 09:53> Allergies/Adverse reactions: Allergies Allergy/AdvReac Type Severity Reaction Status Date / Time lisinopril Allergy Intermediate leg Verified 07/19/25 05:54 swelling morphine AdvReac Mild Nausea and Verified 07/19/25 05:54 Vomiting <DONG Ellison Last Filed: 07/19/25 09:53> Vital Signs Vital Signs - 24 hr 07/19/25 05:42 07/19/25 06:13 07/19/25 06:45 Temperature 36.6 C Pulse Rate 66 60 63 Respiratory Rate 20 18 15 Blood Pressure 183/91 H 154/85 H 169/95 H Pulse Oximetry 92 92 100 Oxygen Delivery Room Air 07/19/25 07:35 07/19/25 08:00 07/19/25 08:01 Temperature Pulse Rate 69 60 69 Respiratory Rate 21 H 15 17 Blood Pressure 182/105 H Pulse Oximetry 86 L 92 93 Oxygen Delivery 07/19/25 08:02 Temperature Pulse Rate 70 Respiratory Rate Blood Pressure Pulse Oximetry Oxygen Delivery <DONG Ellison Last Filed: 07/19/25 09:53> Exam Const: General: uncomfortable <DONG Ellison Last Filed: 07/19/25 09:53> Resp: Effort & Inspection: normal respiratory effort <DONG Ellison Last Filed: 07/19/25 09:53> Skin: General skin exam: normal color and no rashes or lesions noted <DONG Ellison Last Filed: 07/19/25 09:53> Neuro: Speech: normal speech <DONG Ellison Last Filed: 07/19/25 09:53> Psych: Speech and movement: Normal speech and movement present <DONG Ellison Last Filed: 07/19/25 09:53> Results Labs CBC & Chem 7: 07/19/25 05:51 07/19/25 05:51 <DONG Ellison Last Filed: 07/19/25 09:53> Labs: Short CBC 07/19/25 Range/Units 05:51 WBC 9.4 (4.5-10.0) K/mm3 Hgb 9.1 L (12.0-15.0) g/dL Hct 31.7 L (37.0-47.0) % Plt Count 299 (150-375) k/mm3 BMP 07/19/25 05:51 Sodium 136 L Potassium 3.8 Chloride 104 Carbon Dioxide 26 BUN 17 Creatinine 0.77 Glucose 181 H Calcium 8.7 Liver Function 07/19/25 Range/Units 05:51 Total Bilirubin 0.4 (0.2-1.3) mg/dL AST 28 (14-36) U/L ALT 23 (6-35) U/L Alkaline Phosphatase 97 (38-126) U/L Albumin 3.8 (3.5-5.1) g/dL Urine 07/19/25 Range/Units 07:30 Urine Color Yellow (Yellow) Urine Appearance Turbid H (Clear) Urine pH 5.5 (5.0-9.0) Ur Specific [place] 1.020 (1.001-1.035) Urine Protein 2+ H (Negative) mg/dL Urine Glucose (UA) Negative (Negative) mg/dL <DONG Ellison - Last Filed: 07/19/25 09:53> Attestation Supervising Provider Attestation I evaluated the patient on 07/19/2025. I agree with the findings and the plan as documented by our DAMON, Nilo Adair, and I conducted the substantive portion of medical medicine making (MDM) during our visit, including evaluation, analyzing current medical condition, and determining an appropriate course of action. My involvement in the MDM was crucial in guiding clinical decisions and ensuring that the care provided was essential to achieving optimal patient outcomes. 54-year-old female with a 5 mm right ureterovesical junction calculus in the setting of a solitary right kidney. She has a severely atrophic left kidney. I reviewed the patient's chart, vitals, labs, imaging. I personally reviewed her CT scan images. Her urinalysis is not overly suspicious for UTI and is more consistent with a contaminated specimen given squamous cells present. The patient is afebrile and hemodynamically stable. Given her obstructing stone in the setting of a functionally solitary right kidney, we will proceed urgently to the operating room for surgery. I reviewed the modus operandi as well as the associated risks, benefits, alternatives to cystoscopy, right retrograde pyelogram, ureteroscopy, laser lithotripsy, stone basket extraction, right ureteral stent placement. The risks, benefits, and alternatives were thoroughly discussed with the patient. The risks, including but not limited to pain, bleeding, infection, and potential damage to surrounding structures such as the urethra, bladder, ureter, or kidney were reviewed with the patient. Additionally, the risks of dysuria, hematuria, the inability to reach the stone, inability to place a ureteral stent necessitating placement of a nephrostomy tube, and the potential need for subsequent procedures were reviewed. The necessity of removing any ureteral stent, if placed, was emphasized to the patient. I explained that failure to remove the stent could result in long-term complications to the kidney, ureter, and the genitourinary tract, including but not limited to permanent kidney damage or kidney failure. I also reviewed the temporary nature of ureteral stents, noting that they can cause discomfort similar to renal colic and may lead to irritative voiding symptoms as well as hematuria. The patient was informed that stents are not permanent and must be either removed or exchanged periodically to prevent encrustation and irreversible kidney damage. The patient indicated full understanding of these risks and requirements. The patient has verbally acknowledged comprehension and has agreed to proceed with the surgery. <Vinicio Whiting MD - Last Filed: 07/19/25 10:42>
--- NOTE | 2025-07-19 10:28 | P.PNAN_ITS ---
Anes - Initial Pre Proc Eval Procedure: Operation Date: 07/19/25 10:30 Proposed Procedures p Cystoscopy, Right Ureteroscopy, Possible Right Retrograde Pyelogram, Possible Right Stone Extraction, Possible Right Stent Placement, Possible Holmium Laser - Vinicio Whiting MD Date/Time: 07/19/25 10:28 Surgeon: Valentín Moore MD Pre Op Diagnosis: R UVJ Stone Patient Data Age: 54 Gender: F Height: 1.55 m Weight: 107.8 kg Last Vital Signs Temp 36.6 C 07/19/25 05:42 Pulse 70 07/19/25 08:02 Resp 17 07/19/25 08:01 BP 182/105 H 07/19/25 08:01 Pulse Ox 93 07/19/25 08:01 O2 Del Method Room Air 07/19/25 05:42 Allergies Allergy/AdvReac Type Severity Reaction Status Date / Time lisinopril Allergy Intermediate leg Verified 07/19/25 05:54 swelling morphine AdvReac Mild Nausea and Verified 07/19/25 05:54 Vomiting Home Medications ?Medication ?Instructions ?Recorded ?Confirmed ?Type carvedilol 25 mg tablet BID 04/29/20 History levothyroxine 300 mcg tablet 350 DAILY 04/29/20 Histo ry levothyroxine 50 mcg tablet 350 DAILY 04/29/20 Histor y amoxicillin 875 mg-potassium 1 tablet PO Q12H 10 days #20 tabs 01/26/21 Rx clavulanate 125 mg tablet (Augmentin) acetaminophen 500 mg tablet 1,000 mg (2 x 500 mg) PO T ID PRN 07/12/22 Rx jose 7 days #42 tabs ibuprofen 800 mg tablet 800 mg PO TID PRN pain 7 day s #21 07/12/22 Rx tabs ondansetron 4 mg disintegrating 4 mg PO Q6H PRN nausea and 07/20/23 Rx tablet vomiting 3 days #12 tabs sulfamethoxazole 800 1 tablet PO Q12H 7 days #14 tabs 01/09/24 Rx mg-trimethoprim 160 mg tablet (Bactrim DS) furosemide 20 mg tablet (Lasix) 20 mg PO DAILY #7 tabs 03/13/24 Rx sulfamethoxazole 800 1 tablet PO Q12H #14 tabs Rx mg-trimethoprim 160 mg tablet (Bactrim DS) dicyclomine 20 mg tablet 20 mg PO TID PRN abdominal p ain 07/19/25 Rx #20 tabs ondansetron 4 mg disintegrating 4 mg PO Q8H PRN nausea and 07/19/25 Rx tablet vomiting #15 tabs Laboratory Tests 07/19/25 07/19/25 05:51 07:30 WBC 9.4 K/mm3 (4.5-10.0) RBC 3.85 L M/mm3 (4.2-5.4) Hgb 9.1 L g/dL (12.0-15.0) Hct 31.7 L % (37.0-47.0) MCV 82.3 fl (80-100) MCH 23.6 L pg (26-34) MCHC 28.7 L g/dl (32-36) RDW 15.9 H % (11.5-14.5) Plt Count 299 k/mm3 (150-375) MPV 9.0 fl (7.4-10.4) Immature Gran % (Auto) 0.5 % (0-0.5) Neut % (Auto) 77.3 H % (45.5-73.1) Lymph % (Auto) 13.5 L % (18.3-44.2) [place] % (Auto) 4.9 % (2.6-8.5) Eos % (Auto) 3.4 % (0-4.4) Baso % (Auto) 0.4 % (0.2-1.2) Lymph # (Auto) 1.27 K/mm3 (0.9-3.2) [place] # (Auto) 0.5 K/mm3 (0.1-0.6) Eos # (Auto) 0.3 K/mm3 (0-0.3) Baso # (Auto) 0.0 K/mm3 (0.0-0.1) Abs Immat Gran (auto) 0.05 H K/mm3 (0.00-0.031) Absolute Neuts (auto) 7.3 H K/mm3 (1.3-6.7) Absolute Nucleated RBC 0.000 K/mm3 (0.0-0.012) Band Neutrophils % Not Reportable Nucleated RBC % 0.0 % (0.0-0.2) Platelet Estimate Adequate (Adequate) Hypochromasia Occasional Schistocytes None seen Sodium 136 L mmol/L (137-145) Potassium 3.8 mmol/L (3.4-5.0) Chloride 104 mmol/L (98-107) Carbon Dioxide 26 mmol/L (22-30) Anion Gap 6 mmol/L (4-12) BUN 17 mg/dL (7-17) Creatinine 0.77 mg/dL (0.7-1.0) Estim Creat Clear Calc 81 ml/min Estimated GFR > 60 (59 - ) Glucose 181 H mg/dL (65-110) Calcium 8.7 mg/dL (8.4-10.2) Total Bilirubin 0.4 mg/dL (0.2-1.3) AST 28 U/L (14-36) ALT 23 U/L (6-35) Alkaline Phosphatase 97 U/L (38-126) Total Protein 8.1 g/dL (6.3-8.2) Albumin 3.8 g/dL (3.5-5.1) Lipase 63 U/L (23-300) Urine Color Yellow (Yellow) Urine Appearance Turbid H (Clear) Urine pH 5.5 (5.0-9.0) Ur Specific [place] 1.020 (1.001-1.035) Urine Protein 2+ H mg/dL (Negative) Urine Glucose (UA) Negative mg/dL (Negative) Urine Ketones Negative mg/dL (Negative) Ur Blood (Man) 3+ H (Negative) Urine Nitrate Negative (Negative) Urine Bilirubin Negative (Negative) Urine Urobilinogen 1.0 mg/dL (<2.0) Add Ur Microanalysis Reviewed Leukocyte Esterase Rfl Trace H SYDNEE/UL (Negative) Urine RBC >100 H /hpf (0-2) Urine WBC 21-50 H /hpf (0-3) Ur Squamous Epith Cells Moderate /hpf (Few) Urine Bacteria 1+ H /hpf Urine Casts 11-20 Influenza A (RT-PCR) Negative (Negative) Influenza B (RT-PCR) Negative (Negative) RSV (RT-PCR) Negative (Negative) SARS-CoV-2 RNA (RT-PCR) Negative (Negative) Patient hx anesthesia problems: none Family hx anesthesia problems: none Results Review: All pre-operative results and documents have been reviewed as part of the pre- operative evaluation. 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 Hypertension Surgical History Surgical History History of dental surgery History of ankle surgery Right, x5 History of ear surgery Left, x4 Hx of appendectomy Family History Family History Father Alive and well Mother Hypertension Social History Social History Smoking status: Never smoker Tobacco type: cigarettes Second hand tobacco smoke exposure: Yes Alcohol intake: never Substance use: never Living arrangements: with family Occupation/Education: occupation Gender identity (if verbalized by the patient): Female Spiritual care concerns: No Anes - Eval Final PreProcedure Day of Procedure 07/19/25 10:28 Patient weight: morbidly obese Heart: regular rate and rhythm Lungs: normal air movement Airway: Mallampati scale class III Neurological: alert and oriented Last oral intake: >/= 8 hours ASA classification: III Emergent: no Anesthetic plan: proceed Anesthesia type and monitoring: general LMA and ETT and standard monitoring Results Review: All pre-operative results and documents have been reviewed as part of the pre- operative evaluation. Informed Consent: The patient's anesthetic plan and its attendant risks and benefits were discussed with the patient/family/POA. Questions were solicited and answers provided to the satisfaction of the patient/family/POA.
[2025-07-19 10:34] LABS: Pregnancy On Board Control Positive
--- NOTE | 2025-07-19 10:38 | P.PNAN_ITS ---
Anes - Eval Final PreProcedure Day of Procedure 07/19/25 10:38 Patient weight: morbidly obese Heart: regular rate and rhythm Lungs: decreased breath sounds Airway: Mallampati scale class III Neurological: alert and oriented Last oral intake: >/= 8 hours ASA classification: IV Emergent: no Anesthetic plan: proceed Anesthesia type and monitoring: general LMA and standard monitoring Results Review: All pre-operative results and documents have been reviewed as part of the pre- operative evaluation. Informed Consent: The patient's anesthetic plan and its attendant risks and benefits were discussed with the patient/family/POA. Questions were solicited and answers provided to the satisfaction of the patient/family/POA.
--- NOTE | 2025-07-19 10:43 | WPDHPUPDATE1 ---
History and Physical Update Update Date/Time: 07/19/25 10:43 History and Physical has been reviewed, including an updated exam of the patient. There are NO changes in the patient's condition. Risks, benefits, and alternatives have been discussed and questions answered. Patient agrees to proceed with procedure. To OR for cystoscopy, right retrograde pyelogram, ureteroscopy, laser lithotripsy, stone basket extraction, right ureteral stent placement. The risks, benefits, and alternatives were thoroughly discussed with the patient. The patient agrees to proceed with the procedure.
[2025-07-19] MEDS: LACTATED RINGERS 1,000 ML 30 ML IV CONT (10:53)
--- NOTE | 2025-07-19 11:33 | S_PTH ---
PATIENT: Kassy Daniels LOC: [facility] U#:[id number] AGE/SX: 54/F ROOM: RE07/19/[address]: Valentín Moore MD : 1970 BED: DIS: 07/19/2025 SPEC #: [id number] RECD: 07/19/25 12:53 STATUS: [place] REQ #: [id number] KARLEY: 07/19/25 11:[address]: Vinicio Whiting DEPT: [facility] Surgical RECD BY: Lanie Hoff ENTERED: 07/19/25 12:54 SP TYPE: Surgical OTHR DR: Valentín Moore MD SECURITY STRATEGIST PHYSICIAN MD Serafin Brewer MD Tissues: A - Stone Procedures: Gross Exam Level 1 Crystalline Analysis
--- NOTE | 2025-07-19 11:50 | W.PM.PROC2 ---
Procedure Note - Detailed Date of Procedure 07/19/25 Pre-op Diagnosis Right ureteral stone Post-op Diagnosis Same Procedure Performed 1. Cystoscopy 2. Right retrograde pyelogram with intraoperative interpretation 3. Right ureteroscopy 4. Laser lithotripsy 5. Stone basket extraction 6. Right ureteral stent placement with strings attached Surgeon Vinicio Whiting MD Anesthesia General Findings 1. Cystourethroscopy revealed orthotopic ureteral orifices bilaterally with no suspicious lesions, tumors, stones, or active bleeding in the lower urinary tract 2. Right ureteroscopy revealed an approximately 5 mm stone at the right ureterovesical junction. The stone was successfully fragmented with the laser fiber and any larger fragments were retrieved with the 0 tip Nitinol basket. Completion ureteroscopy revealed no residual ureteral stones nor notable injury. There were no significant inflammatory changes in the ureter 3. Spot film over the right kidney revealed some retained contrast from her recent CT scan. 4. Right retrograde pyelogram is significant for contrast and saline performed after stone treatment showed mild hydronephrosis without contrast extravasation or filling defects 5. Successful right ureteral stent placement with strings attached Description of Procedure After informed consent was obtained, the patient was brought back to the operating theatre and placed in the supine position on the operating table. Pre-operative antibiotics were confirmed to have been administered. Anesthesia was induced. The patient was moved into the dorsal lithotomy position and prepped and draped in the standard sterile fashion for an endoscopic case. All pressure points were padded. Bilateral sequential compression devices were on and noted to be functioning. A formal timeout was performed with Dr. Whiting in attendance to confirm the correct patient, site/laterality, and procedure and all were in agreement to proceed. To begin with, I atraumatically advanced a lubricated 22-St Helenian rigid cystoscope transurethrally into the patient's bladder. Pancystoscopy was performed with findings as noted above. Attention was then turned to the right ureteral orifice, which was attempted to be cannulated with a Sensor wire but was noted to be bouncing off the stone which was noted on recent CT scan to be at the right ureterovesical junction. I thus removed the cystoscope and then inserted a semi rigid ureteral scope transurethrally into the bladder and was able to cannulate the right ureteral orifice with the Sensor wire and over top of this wire I passed the ureteroscope. I immediately encountered an approximately 5 mm stone at the right ureterovesical junction. I was able to negotiate a Sensor wire up to the level of the right kidney under fluoroscopy through the ureteral scope. The ureteral scope was removed the Sensor wire was secured to the drapes with a hemostat. I then reinserted the ureteral scope into the bladder and used a 2nd safety Glidewire to cannulate the right ureteral orifice and over top of the wire I passed ureteral scope. I again encountered the stone at the right ureterovesical junction. I then used a 200 micron Rylan laser to dust and fragment the stone into smaller pieces. Any larger pieces were then sequentially grasped with a ZeroTip Nitinol basket and deployed in the bladder for later collection. I then performed completion ureteroscopy, advancing ureteroscopic the level the right proximal ureter and did not note any other ureteral stones no notable injury. Of note, there was no significant inflammatory changes at the right ureterovesical junction. For this reason I elected to place a right ureteral stent with strings attached. I then removed the ureteral scope and inserted the cystoscope into the bladder and drained out the stone fragments through the cystoscope which were sent off as a specimen labeled right ureteral stone for kidney stone analysis. I then backloaded the cystoscope onto the Sensor wire and advanced this transurethrally into the patient's bladder with attention drawn to the right ureteral orifice. Over top of the wire, a 6-St Helenian x 24 cm JJ stent was advanced and the pusher was used to deploy the stent in place, confirming a good proximal curl in the right kidney under fluoroscopy and a good distal curl in the bladder under both fluoroscopic and direct cystoscopic vision. The patient's bladder was then emptied and the cystoscope was removed. The strings were then coiled and secured to a piece of small Tegaderm was then placed in the patient's vagina to avoid inadvertent dislodgement of the stent. This essentially concluded the case. At the conclusion of the case all sponge, instrument, and sharp counts were correct x 2. The patient was then awoken from anesthesia and taken to the recovery room in stable condition. The patient tolerated the procedure well and there were no immediate complications noted. Disposition: The patient will be monitored in the PACU and be discharged home when Clearing PACU protocol. She was instructed to remove her stent at home in 4 days on 07/23/2025. We will arrange to see her back in the Urology Clinic in about 3 months with a renal ultrasound and KUB at her visit. We will also plan to review kidney stone prevention techniques at her follow-up visit. Patient's was provided an update following the surgery and all questions were answered to his satisfaction at the conclusion of our discussion. Urine Output 5
--- NOTE | 2025-07-19 12:33 | PM.IMHP2 ---
H&P: HPI History of Present Illness Date/Time: 07/19/25 12:33 Chief Complaint: abd pain Narrative: 54-year-old female with past medical history of hypothyroidism, lymphedema, colon cancer s/p resection Mar 2025 presents to the ED on 07/19/2025 with complaints of right lower quadrant abdominal pain that woke her from sleep. Patient states she has also had multiple episodes of diarrhea and nausea without vomiting. 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 Hypertension Surgical History Surgical History History of dental surgery History of ankle surgery Right, x5 History of ear surgery Left, x4 Hx of appendectomy Family History Family History Father Alive and well Mother Hypertension Social History Social History Smoking status: Never smoker Tobacco type: cigarettes Second hand tobacco smoke exposure: Yes Alcohol intake: never Substance use: never Living arrangements: with family Occupation/Education: occupation Gender identity (if verbalized by the patient): Female Spiritual care concerns: No Meds Home Medications and Allergies Home Medications ?Medication ?Instructions ?Recorded ?Confirmed ?Type carvedilol 25 mg tablet BID 04/29/20 History levothyroxine 300 mcg tablet 350 DAILY 04/29/20 History levothyroxine 50 mcg tablet 350 DAILY 04/29/20 History amoxicillin 875 mg-potassium 1 tablet PO Q12H 10 days #20 tabs 01/26/21 Rx clavulanate 125 mg tablet (Augmentin) acetaminophen 500 mg tablet 1,000 mg (2 x 500 mg) PO TID PRN 07/12/22 Rx jose 7 days #42 tabs ibuprofen 800 mg tablet 800 mg PO TID PRN pain 7 days #21 07/12/22 Rx tabs ondansetron 4 mg disintegrating 4 mg PO Q6H PRN nausea and 07/20/23 Rx tablet vomiting 3 days #12 tabs sulfamethoxazole 800 1 tablet PO Q12H 7 days #14 tabs 01/09/24 Rx mg-trimethoprim 160 mg tablet (Bactrim DS) furosemide 20 mg tablet (Lasix) 20 mg PO DAILY #7 tabs 03/13/24 Rx sulfamethoxazole 800 1 tablet PO Q12H #14 tabs 06/07/25 Rx mg-trimethoprim 160 mg tablet (Bactrim DS) dicyclomine 20 mg tablet 20 mg PO TID PRN abdominal pain 07/19/25 Rx #20 tabs ondansetron 4 mg disintegrating 4 mg PO Q8H PRN nausea and 07/19/25 Rx tablet vomiting #15 tabs tramadol 50 mg tablet 50 mg PO Q6H PRN pain #10 tabs 07/19/25 Rx Allergies Allergy/AdvReac Type Severity Reaction Status Date / Time lisinopril Allergy Intermediate leg Verified 07/19/25 05:54 swelling morphine AdvReac Mild Nausea and Verified 07/19/25 05:54 Vomiting Vital Signs Vital Signs - 24 hr 07/19/25 05:42 07/19/25 06:13 07/19/25 06:45 Temperature 97.8 F Pulse Rate 66 60 63 Respiratory Rate 20 18 15 Blood Pressure 183/91 H 154/85 H 169/95 H Pulse Oximetry 92 92 100 Oxygen Delivery Room Air Oxygen Flow Rate 07/19/25 07:35 07/19/25 08:00 07/19/25 08:01 Temperature Pulse Rate 69 60 69 Respiratory Rate 21 H 15 17 Blood Pressure 182/105 H Pulse Oximetry 86 L 92 93 Oxygen Delivery Oxygen Flow Rate 07/19/25 08:02 07/19/25 10:40 07/19/25 11:39 Temperature 97.6 F 98.5 F Pulse Rate 70 63 86 Respiratory Rate 22 H 13 Blood Pressure 190/92 H 139/94 H Pulse Oximetry 96 100 Oxygen Delivery Room Air Simple Face Mask Oxygen Flow Rate 6 07/19/25 11:53 07/19/25 12:10 07/19/25 12:25 Temperature Pulse Rate 67 62 67 Respiratory Rate 13 18 14 Blood Pressure 147/89 H 147/91 H 168/98 H Pulse Oximetry 100 100 100 Oxygen Delivery Simple Face Mask Simple Face Mask Room Air Oxygen Flow Rate 5 6 Results Labs Labs: Short CBC 07/19/25 Range/Units 05:51 WBC 9.4 (4.5-10.0) K/mm3 Hgb 9.1 L (12.0-15.0) g/dL Hct 31.7 L (37.0-47.0) % Plt Count 299 (150-375) k/mm3 BMP 07/19/25 05:51 Sodium 136 L Potassium 3.8 Chloride 104 Carbon Dioxide 26 BUN 17 Creatinine 0.77 Glucose 181 H Calcium 8.7 Liver Function 07/19/25 Range/Units 05:51 Total Bilirubin 0.4 (0.2-1.3) mg/dL AST 28 (14-36) U/L ALT 23 (6-35) U/L Alkaline Phosphatase 97 (38-126) U/L Albumin 3.8 (3.5-5.1) g/dL Urine 07/19/25 Range/Units 07:30 Urine Color Yellow (Yellow) Urine Appearance Turbid H (Clear) Urine pH 5.5 (5.0-9.0) Ur Specific Steward 1.020 (1.001-1.035) Urine Protein 2+ H (Negative) mg/dL Urine Glucose (UA) Negative (Negative) mg/dL Assessment and Plan Assessment and plan (1) Calculus of ureterovesical junction (UVJ): Code(s): N20.1 - Calculus of ureter Status: Acute (2) Hypothyroidism: Qualifiers: Hypothyroidism type: unspecified Qualified Code(s): E03.9 - Hypothyroidism, unspecified Code(s): E03.9 - Hypothyroidism, unspecified Status: Chronic (3) Hypertension: Qualifiers: Hypertension type: primary hypertension Qualified Code(s): I10 - Essential (primary) hypertension Code(s): I10 - Essential (primary) hypertension Status: Chronic Plan Diet: DVT prophylaxis: lines/drains: Fluids: Code status: Full Prior Studies I have reviewed the following patient records and this information was taken into consideration when formulating the assessment and plan.: previous labs, previous ER visits, previous hospitalizations and previous clinic visits Time Spent with Patient Time with patient: 45 - 74 minutes
--- OUTSIDE RECORDS SUMMARY | 2025-07-19 15:24 | XMS_ITS | Clinical Summary ---
Author Organization [facility] Office Center Address [address] [place] [address] Care Team Providers Care Parcel Post Clerk Name Role Phone Starr Roberson Unavailable [phone] Viky Sanchez MD, William C. Unavailable Quinton Garcia MD Unavailable [phone] Artem Wyman MD Unavailable [phone] Liz Spain NP Primary Care Provider Allergies Active Allergy Reactions Criticality Noted Date Comments Lisinopril Swelling Medium 02/07/2020 Leg swelling Morphine Dizziness,Nausea & Vomiting Medium Semaglutide Swelling Medium 03/02/2025 Ozempic-Leg swelling Medications levothyroxine (SYNTHROID) 300 mcg tablet Take 1 tablet (300 mcg total) by mouth early years teacher before breakfast W/50 mcg tab for total of 350mcg/day Active levothyroxine (SYNTHROID) 50 mcg tablet Take 1 tablet (50 mcg total) by mouth early years teacher before breakfast W/300 mcg tab for total [...] Type Department Care Team Description 04/19/2025 Telephone [facility] Medicine Surgery [address] [place] [address] Medical Office Building [address] [place] [address] Savannah Rowley RN from Last [...] on file 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 There were multiple areas of [...] mass. Patient prefers to be referred at [facility] and we will arrange this. - Resume home medications and diet. - Return to primary care physician as previously scheduled. - In the unusual situation that you developabdominal pain, bleeding or other significant problems in the days following this procedure please call my officeat [phone] ([phone]) to speak to my nurses. After hours and evenings please call [phone] speak to the GI fellow business information consultant. Please tell themthat Dr. Wyman did your procedure and that your were instructed to have the fellow call me or thephysician covering for me to discuss the management of your condition. If you have an urgent problem, please goto the nearest emergency room and have the ER doctorcall my office during the day or [facility] transfer ([phone]) center after hours and weekends to arrange admission or transfer to our facility. - Call my nurse Lisa Bustos RN in the GI office at [phone] for your final pathology results in 7 [...] Maintenance Insurance [place] [address] [place] [address] [place] Advance [place] For more information, please contact: [phone] * Full Code (Latest Code Status on File) Date Activated Date Inactivated Comments 03/15/2025 4:11 PM 03/19/2025 5:00 PM * Full Code Date Activated Date Inactivated Comments 12/22/2024 7:49 AM 12/22/2024 3:06 PM Care Teams Parcel Post Clerk Relationship Specialty Start Date End Date Liz Spain NP [address] [place] [address] PCP - General Family Medicine 01/11/25 Starr Roberson PA [address] [place] [address] 07/21/24 Dov Salmon Jr., MD [address] [facility] [phone] [place] [address] Consulting Physician Colon and Rectal Surgery 01/06/25 Quinton Garcia MD [address] [facility] [address] [place] [address] Consulting Physician Cardiology 01/06/25 Artem Wyman MD [address] [place] [address] Referring Physician Gastroenterology 01/06/25
--- OUTSIDE RECORDS SUMMARY | 2025-07-19 15:24 | XMS_ITS | Clinical Summary ---
Author Organization [facility] Address [facility] [address] [place] [address] Care Team Providers Care Thermoforming Operator Name Role Phone Shilpa Grady MD Primary Care Provider [phone] Allergies Active Allergy Reactions Criticality Noted Date [...] Sex Assigned at Female 09/16/2024 8:20 AM PASSENGER SERVICE SUPERVISOR Legal Sex Female 1:14 PM CDT Gender Identity Not on file Sexual Orientation Not on file Last Filed Vital Signs Vital Sign Reading Time Taken Comments Blood Pressure 170/100 09/16/2024 9:01 AM PASSENGER SERVICE SUPERVISOR Pulse 86 09/16/2024 9:01 AM PASSENGER SERVICE SUPERVISOR Temperature - - Respiratory Rate - - Oxygen Saturation - - Inhaled Oxygen Concentration - - Weight 118 kg (260 lb 3.2 oz) 09/16/2024 9:01 AM PASSENGER SERVICE SUPERVISOR Height 154.9 cm (5' 1) 09/16/2024 9:01 AM PASSENGER SERVICE SUPERVISOR Body Mass Index 49.16 09/16/2024 9:01 AM PASSENGER SERVICE SUPERVISOR Plan of Treatment Upcoming Encounters Date Type Department Care Team (Late st Contact Info) Description 08/11/2025 3:15 PM PASSENGER SERVICE SUPERVISOR Office Visit [facility] [address] [place] [address] Duane Medina MD [facility]. [facility] [address] [place], [place] [id number] Health Maintenance Due Date Last Done Comments [...] to complete this topic Insurance Care Teams Thermoforming Operator Relationship Specialty Start Date End Date Shilpa Grady MD [address] [place] [address] PCP - General FAMILY PRACTICE 07/02/23
== END 2025-07-19 14:25 | disposition home or self-care (01) ==
LOC: ANHED 09:25 → ANH3MEDSUR 11:39 → ANHSURGERY 13:19
PROVIDERS: Nurse Anesthetist, Certified Registered; Student in an Organized Health Care Education/Training Program; Urology; Emergency Provider Emergency Medicine; Visit Provider General Practice
PROC: (CPT 52352; principal; 2025-07-19 10:30)
DX: N20.1 Calculus of ureter (principal); N13.39 Other hydronephrosis; R82.90 Unspecified abnormal findings in urine; G89.18 Other acute postprocedural pain; E03.9 Hypothyroidism, unspecified; I10 Essential (primary) hypertension; E66.01 Morbid (severe) obesity due to excess calories; Z68.41 Body mass index [BMI] 40.0-44.9, adult; Z79.1 Long term (current) use of non-steroidal anti-inflammatories (NSAID); Z20.822 Contact with and (suspected) exposure to COVID-19; Z98.890 Other specified postprocedural states; Z85.038 Personal history of other malignant neoplasm of large intestine
CPT/HCPCS: 52356; 36415; 74177; 74420; 80053; 81001; 81025; 82365; 82948; 83690; 85025; 87637; 88300; 96361; 96365; 96372; 96375; 96376; 99285; A9270; C1758; C1769; C2617; J0500; J0696; J1171; J2003; J2250; J2405; J2704; J3010; J7120; Q9966; Q9967